=== PATIENT | female | born 1940 | race Caucasian/White ===

== ENCOUNTER → 2018-11-03 | Outpatient (CLI) | payer SELFPAY ==
[~2018-11-03] MED LIST: SYNTHROID125 MC1
[2018-11-03 11:37] LABS: HEMATOCRIT 20.4 % (37.0-47.0)
[2018-11-03 11:38] LABS: HEMOGLOBIN 6.4 gm/dL (12.0-15.0)
[2018-11-03 12:55] VITALS: BP 108/60; BP 109/60; BP 90/47; BP 98/45
[2018-11-03 16:01] VITALS: BP 104/57; BP 109/60; BP 92/48; BP 96/56; BP 97/57
--- NOTE | 2018-11-03 19:20 | NUR ---
1130 - ARRIVED TO INFUSION CLINIC ESCORTED BY AND DAUGHTER, SETTLED INTO RECLINER. CALL LIGHT IN REACH. MALISSA HUGGER PROVIDED. 1230 - MALISSA HUGGER REMOVED PER PT REQUEST. 1330 - TRANSFERRED INTO BED WITH STAND BY ASSIST. BLOOD TRANSFUSION INFUSING WITHOUT DIFFICULTY. FAMILY REMAINS AT BEDSIDE. 1430 - ATE FEW BITES OF LUNCH. TAKING IN PO FLUIDS. STAND BY ASSIST TO AMBULATE SLOW AND STEADY TO BATHROOM. 1605 - 1ST UNIT COMPLETED WITHOUT ANY ADVERSE REACTION. REMAINS AT SIDE. 1700 - AMBULATING TO BATHROOM FREQUENTLY TO VOID D/T LASIX GIVEN. ATE FEW BITES OF DINNER. REPOSITIONING FROM BED TO RECLINER INTERMITTENLY. 1920 - 2ND UNIT OF BLOOD COMPLETED WITHOUT ADVERSE REACTION. DISCUSSED DISCHARGE INSTRUCTIONS WITH FAMILY. DISMISSED IN WITH IMPROVED SKIN COLOR AND GAIT. DISMISSED VIA W/C TO FAMILY VEHICLE.
== END ==
LOC: M.INFUS 08:30 → M.LAB 08:30 → M.INFUS 09:00
PROVIDERS: Internal Medicine
DX: D50.9 Iron deficiency anemia, unspecified (principal); C92.20 Atypical chronic myeloid leukemia, BCR/ABL-negative, not having achieved remission; I50.9 Heart failure, unspecified

== ENCOUNTER 2018-12-06 22:07 | Inpatient (IN) | payer MEDICARE ==
[~2018-12-06] VITALS: Ht 165.1 cm; Wt 59.4 kg
--- NOTE | ~2018-12-06 | PROC ---
[address] [address] PROCEDURE REPORT Name: GOLDY DAVISON Room: [address] IN M.R.#: [id number] Admission: 12/07/18 Attend Phys: Manny Lewis Discharge: Date of : 38 Report #: [id number] THIS REPORT FOR: //name// For GI report, please see the Provation report in Perceptive 7 content. By: 1317Medical Records Staff CHRIS /NHUNG
[2018-12-06 22:14] VITALS: BP 82/33
[2018-12-06] MEDS ORDERED: SYNTHROID125 MC1 PO (22:24)
[2018-12-06 23:31] LABS: MCH 22.8 pg (26.0-34.0); MCHC 29.4 g/dL (28.0-37.0); MCV 77.4 fL (80.0-100.0); MPV 8.3 fl. (7.2-11.1); NUCLEATED RBCS 3 /100WBC; PLATELET COUNT* 205 thou/uL (150-400); RDW-CV 24.3 % (10.5-14.5); WBC 25.1 thou/uL (4.0-11.0)
[2018-12-06 23:34] LABS: HEMATOCRIT 13.1 % (37.0-47.0); HEMOGLOBIN 3.9 gm/dL (12.0-15.0)
[2018-12-06 23:47] LABS: APTT 37.4 Seconds (25.0-31.3); INR 1.8; PROTIME 18.1 Seconds (9.20-11.50)
[2018-12-06 23:53] LABS: ALBUMIN 1.8 g/dL (3.4-5.0); ALKALINE PHOSPHATASE 29 U/L (46-116); ANION GAP 14 mmol/L (7-16); BUN 59 mg/dL (7-18); CALCIUM 6.7 mg/dL (8.5-10.1); CHLORIDE 109 mmol/L (98-107); CO2 18 mmol/L (21-32); CREATININE 1.4 mg/dL (0.6-1.3); GLUCOSE 117 mg/dL (70-99); LIPASE 80 U/L (73-393); SGOT 17 U/L (15-37); SGPT 6 U/L (30-65); SODIUM 141 mmol/L (136-145); TOTAL BILIRUBIN 0.6 mg/dL (<0.1-1.0); TOTAL PROTEIN 3.9 g/dL (6.4-8.2); TROPONIN-I LEVEL <0.06 ng/mL (<0.06)
[2018-12-06 23:54] LABS: POTASSIUM 6.1 mmol/L (3.5-5.1)
[2018-12-07] VITALS (80 sets, daily range): BP systolic 75–134; BP diastolic 29–71
[2018-12-07 00:36] LABS: URINE BILIRUBIN NEGATIVE (Negative); URINE BLOOD TRACE (Negative); URINE CLARITY CLEAR; URINE COLOR YELLOW; URINE GLUCOSE-RANDOM NEGATIVE (Negative); URINE KETONES NEGATIVE (Negative); URINE LEUKOCYTES-REFLEX TRACE (Negative); URINE NITRITE-REFLEX NEGATIVE (Negative); URINE PROTEIN 2+ (Negative); URINE SPECIFIC GRAVITY >= 1.030 (1.005-1.030); URINE UROBILINOGEN 0.2 E.U./dl (0.2-1.0)
[2018-12-07 00:54] LABS: AMORPHOUS URATES Many /LPF (None Seen); BACTERIA-REFLEX 1-9 Few /HPF (None Seen); CASTS None Seen /LPF (None Seen); MUCUS 0-3 Light strn/LPF (None Seen); SQUAMOUS 0-3 Few /LPF (0-3); URINE RBC 3-10 Few /HPF (0-2); URINE WBC-REFLEX 0-5 Rare /HPF (0-5)
[2018-12-07 09:06] LABS: HEMATOCRIT 26.2 % (37.0-47.0); MCH 24.9 pg (26.0-34.0); MPV 8.6 fl. (7.2-11.1); RBC 3.17 mil/uL (4.20-5.00)
[2018-12-07 09:13] LABS: CALCIUM 7.4 mg/dL (8.5-10.1); CREATININE 1.6 mg/dL (0.6-1.3)
[2018-12-07 09:15] LABS: HEMOGLOBIN 7.9 gm/dL (12.0-15.0); MCV 82.8 fL (80.0-100.0)
[2018-12-07 09:19] LABS: APTT 38.1 Seconds (25.0-31.3); INR 1.5; PROTIME 14.9 Seconds (9.20-11.50)
--- NOTE | 2018-12-07 10:03 | EKG ---
[place] [address] ELECTROCARDIOGRAM REPORT Name: GOLDY DAVISON Room: [address] ADM IN M.R.#: [id number] Admission: 12/07/18 Attend Phys: Manny Lewis Discharge: Date of : 38 Report #: [id number] THIS REPORT FOR: //name// [facility] ED Test Date: 2018-12-06 Test Time: 22:53:25 Pat Name: GOLDY DAVISON Department: Room: [facility] Gender: F Air Traffic Control Supervisor: NETTIE : 1940 Requested By: Bharat Maya Order Number: [id number] MD: Doug Solano Measurements Intervals [place] Rate: 72 P: 52 ME: 185 QRS: 36 QRSD: 135 T: QT: 442 QTc: 484 Interpretive Statements sinus rhythm with first degree av block pac's and pvc Nonspecific intraventricular conduction delay Nonspecific T abnrm, anterolateral leads No previous ECG available for comparison Electronically Signed On 12-07-2018 10:02:56 CDT by Doug Solano [email or web address] <ELECTRONICALLY SIGNED> By: Doug Solano MD, FACC 12/07/18 1002 2253 2253 Doug Solano MD, [facility] /EPI
[2018-12-07 10:13] LABS: BE -12.7 mmol/L (-2 to +3); PCO2 31.5 mmHg (35.0-45.0); PO2 67.1 mmHg (75.0-100.0)
[2018-12-07 10:15] LABS: pH 7.248 (7.340-7.450)
[2018-12-07 12:10] LABS: ABSOLUTE BASOPHILS 0.3 thou/uL (0.0-0.2); ABSOLUTE EOSINOPHILS 0.8 thou/uL (0.0-0.7); ABSOLUTE MONOCYTES 0.3 thou/uL (0.0-1.2); ABSOLUTE NEUTROPHILS 21.6 thou/uL (1.6-8.1); BLASTS 1 %; METAMYELOCYTES 3 %; MYELOCYTES 2 %; PROMYELOCYTES 2 %
[2018-12-07 12:12] LABS: ANISOCYTOSIS 2+; HYPOCHROMASIA 2+; POLYCHROMASIA 1+; TEARDROPS 2+
[2018-12-07 12:21] LABS: ABSOLUTE BASOPHILS 0.8 thou/uL (0.0-0.2); ABSOLUTE EOSINOPHILS 0.7 thou/uL (0.0-0.7); ABSOLUTE LYMPHOCYTES 12.4 thou/uL (0.8-5.3); ABSOLUTE MONOCYTES 7.9 thou/uL (0.0-1.2); EOSINOPHILS 0.9 %; HEMATOCRIT 27.5 % (37.0-47.0); HEMOGLOBIN 8.5 gm/dL (12.0-15.0); LYMPHOCYTES 15.8 %; MCH 25.3 pg (26.0-34.0); MCHC 30.7 g/dL (28.0-37.0); MCV 82.3 fL (80.0-100.0); MONOCYTES 10.1 %; MPV 8.6 fl. (7.2-11.1); NUCLEATED RBCS 4 /100WBC; PLATELET COUNT* 232 thou/uL (150-400); POLYS 72.2 %; RBC 3.35 mil/uL (4.20-5.00)
[2018-12-07 12:22] LABS: ABSOLUTE NEUTROPHILS 56.5 thou/uL (1.6-8.1)
[2018-12-07 12:44] LABS: ALBUMIN 2.2 g/dL (3.4-5.0); CREATININE 1.6 mg/dL (0.6-1.3); POTASSIUM 5.9 mmol/L (3.5-5.1); TOTAL BILIRUBIN 1.1 mg/dL (<0.1-1.0); TOTAL PROTEIN 4.9 g/dL (6.4-8.2)
[2018-12-07 13:12] LABS: % SATURATION 95 % (20-39); IRON 223 ug/dL (50-175)
[2018-12-07 13:14] LABS: BE -13.7 mmol/L (-2 to +3); PCO2 37.8 mmHg (35.0-45.0)
[2018-12-07 13:16] LABS: pH 7.178 (7.340-7.450)
[2018-12-07 15:30] LABS: BE -8.6 mmol/L (-2 to +3); PCO2 37.1 mmHg (35.0-45.0); PO2 99.9 mmHg (75.0-100.0)
[2018-12-07 15:32] LABS: pH 7.286 (7.340-7.450)
--- NOTE | 2018-12-07 17:40 | 2DMMODE ---
[place] [address] 2 D/M-MODE ECHOCARDIOGRAM Name: GOLDY DAVISON Room: [address] IN [facility]#: [id number] Admission: 12/07/18 Attend Phys: Mitzi Macias Discharge: Date of : 38 Date of Service: 12/07/18 1740 Report #: [id number] THIS REPORT FOR: //name// APPROVED REPORT Study performed: 12/07/2018 16:04:00 EXAM: Comprehensive 2D, Doppler, and color-flow Echocardiogram Patient Location: In-Patient Room #: [facility] Status: routine BSA: 1.62 HR: 96 bpm BP: 97/40 mmHg Rhythm: NSR Other Information Study Quality: Good Indications Cardiomegaly 2D Dimensions IVSd: 11.83 (7-11mm) LVOT Diam: 21.37 (18-24mm) LVDd: 66.32 mm PWd: 9.27 (7-11mm) Ascending Ao: 36.33 (22-36mm) LVDs: 55.43 (25-40mm) Aortic Root: 31.72 mm Volumes Left Atrial Volume (Systole) LA ESV Index: 83.50 mL/m2 Aortic Valve AoV Peak Talon.: 1.72 m/s AO Peak Gr.: 11.82 mmHg LVOT Max P.97 mmHg AO Mean Gr.: 6.45 mmHg LVOT Mean P.25 mmHg LVOT Max V: 1.32 m/s AO V2 VTI: 21.04 cm LVOT Mean V: 0.82 m/s TORO (VTI): 2.81 cm2 LVOT V1 VTI: 16.48 cm TDI Medial E' Talon.: 0.08 m/s Lateral E' Talon.: 0.10 m/[place] [address] 2 D/M-MODE ECHOCARDIOGRAM Name: GOLDY DAVISON Room: [address] IN ..#: [id number] Admission: 12/07/18 Attend Phys: Mitzi Macias Discharge: Date of : 38 Date of Service: 12/07/18 1740 Report #: [id number] Pulmonary Valve PV Peak Talon.: 1.22 m/s PV Peak Gr.: 5.98 mmHg Tricuspid Valve RAP Estimate: 10.00 mmHg TR Peak Gr.: 55.00 mmHg RVSP: 65.00 mmHg PA Pressure: 65.00 mmHg Left Ventricle Left ventricle is moderate to severely dilated. There is global hypokinesis of the left ventricle. There is normal left ventricular wall thickness. Left ventricular systolic function is moderately decreased. LVEF is 30-35%. The left ventricular diastolic function is normal. Right Ventricle Right ventricle is dilated. The right ventricular systolic function is normal. Atria Left atrium is severely dilated. Right atrium is dilated. Aortic Valve The aortic valve is normal in structure. No aortic regurgitation is present. There is no aortic valvular stenosis. Mitral Valve The mitral valve is normal in structure. Moderate mitral regurgitation. No evidence of mitral valve stenosis. Tricuspid Valve The tricuspid valve is normal in structure. Severe tricuspid regurgitation. estimated pa pressure 60 mm Hg Pulmonic Valve The pulmonary valve is normal in structure. Mild pulmonic regurgitation. Great Vessels The aortic root is normal in size. The IVC is dilated. Pericardium Mild pericardial effusion. [place] [address] 2 D/M-MODE ECHOCARDIOGRAM Name: JONNIE DAVISONMAGALI Long Room: [address] IN [facility].#: [id number] Admission: 12/07/18 Attend Phys: Mitzi Macias Discharge: Date of : 38 Date of Service: 12/07/181739 Report #: [id number] <Conclusion> LVEF is 30-35%. Right ventricle is dilated. Moderate mitral regurgitation. Severe tricuspid regurgitation. estimated pa pressure 60 mm Hg Mild pericardial effusion. <ELECTRONICALLY SIGNED> By: Doug Solano MD, [facility] 12/07/181739 39 39 Doug Solano MD, FACC /INF
--- NOTE | 2018-12-07 17:53 | EKG ---
[place] [address] ELECTROCARDIOGRAM REPORT Name: GOLDY DAVISON Room: [address] ADM IN M.R.#: [id number] Admission: 12/07/18 Attend Phys: Manny Lewis Discharge: Date of : 38 Report #: [id number] THIS REPORT FOR: //name// [facility] ED Test Date: 2018-12-06 Test Time: 22:54:06 Pat Name: GOLDY DAVISON Department: Room: [address] Gender: F Driver Examiner: NETTIE : 1940 Requested By: Bharat aMya Order Number: [id number] MD: Doug Solano Measurements Intervals [place] Rate: 83 P: 51 RI: 141 QRS: 35 QRSD: 151 T: 149 QT: 446 QTc: 525 Interpretive Statements Sinus rhythm Atrial premature complex Nonspecific intraventricular conduction delay Borderline T abnormalities, lateral leads Compared to ECG 12/06/2018 22:53:25 Atrial premature complex(es) now present T-wave abnormality now present First degree AV block no longer present Ventricular premature complex(es) no longer present Electronically Signed On 12-07-2018 17:53:45 CDT by Doug Solano [email or web address] <ELECTRONICALLY SIGNED> By: Duog Solano MD, [facility] 12/07/18 1753 2254 2254 Doug Solano MD, [facility] /EPI
--- NOTE | 2018-12-07 18:05 | EKG ---
[place] [address] ELECTROCARDIOGRAM REPORT Name: GOLDY DAVISON Room: [address] ADM IN M.R.#: [id number] Admission: 12/07/18 Attend Phys: Manny Lewis Discharge: Date of : 39 Report #: [id number] THIS REPORT FOR: //name// [facility] Test Date: 2018-12-07 Test Time: 14:31:23 Pat Name: GOLDY DAVISON Department: Room: [address] Gender: F Supervisor Cd Area: : 1940 Requested By: Leticia Tobar Order Number: [id number] Reading MD: Doug Solano Measurements Intervals [place] Rate: 88 P: [place]: QRS: 52 QRSD: 116 T: 135 QT: 379 QTc: 459 Interpretive Statements Accelerated junctional rhythm Nonspecific intraventricular conduction delay Low voltage, extremity leads Borderline repolarization abnormality Compared to ECG 12/06/2018 22:53:25 Accelerated junctional rhythm now present Low QRS voltage now present Electronically Signed On 12-07-2018 18:05:05 CDT by Doug Solano [email or web address] <ELECTRONICALLY SIGNED> By: Doug Solano MD, FAC 12/07/18 1805 1431 1431 Doug Solano MD, [facility] /EPI
[2018-12-08] VITALS (61 sets, daily range): BP systolic 67–125; BP diastolic 33–69
[2018-12-08 04:57] LABS: BASOPHILS 1.1 %; HEMATOCRIT 24.3 % (37.0-47.0); HEMOGLOBIN 7.7 gm/dL (12.0-15.0); LYMPHOCYTES 9.8 %; MCHC 31.5 g/dL (28.0-37.0); MCV 79.3 fL (80.0-100.0); MONOCYTES 10.6 %; MPV 9.3 fl. (7.2-11.1); NUCLEATED RBCS 2 /100WBC; POLYS 77.5 %; RBC 3.07 mil/uL (4.20-5.00); RDW-CV 20.8 % (10.5-14.5)
[2018-12-08 05:31] LABS: ALBUMIN 2.2 g/dL (3.4-5.0); CALCIUM 6.9 mg/dL (8.5-10.1); CREATININE 1.4 mg/dL (0.6-1.3); MAGNESIUM 1.7 mg/dL (1.8-2.4); TOTAL PROTEIN 5.1 g/dL (6.4-8.2)
[2018-12-08 05:36] LABS: POTASSIUM 4.5 mmol/L (3.5-5.1)
[2018-12-08 05:49] LABS: ABSOLUTE BASOPHILS 0.4 thou/uL (0.0-0.2); ABSOLUTE EOSINOPHILS 0.4 thou/uL (0.0-0.7); ABSOLUTE LYMPHOCYTES 3.6 thou/uL (0.8-5.3); ABSOLUTE MONOCYTES 3.9 thou/uL (0.0-1.2); ABSOLUTE NEUTROPHILS 28.3 thou/uL (1.6-8.1); PLATELET COUNT* 134 thou/uL (150-400); WBC 36.5 thou/uL (4.0-11.0)
[2018-12-08 06:05] LABS: BE -8.4 mmol/L (-2 to +3); PCO2 35.2 mmHg (35.0-45.0); pH 7.306 (7.340-7.450)
[2018-12-08 07:44] LABS: POTASSIUM 6.1 mmol/L (3.5-5.1)
[2018-12-08 08:37] LABS: WBC 78.2 thou/uL (4.0-11.0)
[2018-12-08 12:18] LABS: HEMATOCRIT 25.4 % (37.0-47.0); HEMOGLOBIN 8.3 gm/dL (12.0-15.0); MCH 25.5 pg (26.0-34.0); MCHC 32.7 g/dL (28.0-37.0); MCV 77.8 fL (80.0-100.0); MPV 8.2 fl. (7.2-11.1); RBC 3.27 mil/uL (4.20-5.00); RDW-CV 21.2 % (10.5-14.5)
[2018-12-08 12:24] LABS: WBC 45.6 thou/uL (4.0-11.0)
[2018-12-08 12:28] LABS: INR 1.4; PROTIME 14.4 Seconds (9.20-11.50)
--- NOTE | 2018-12-08 13:44 | CON ---
[address] [address] CONSULTATION Name: GOLDY DAVISON Room: [address] IN .R.#: [id number] Admission: 12/07/18 Attend Phys: Manny Lewis Discharge: Date of : 39 Report #: [id number] THIS REPORT FOR: //name// CC: Ana Macias DATE OF SERVICE: 12/07/2018 REFERRING PHYSICIAN: Stacie Tobar M.D. CHIEF COMPLAINT: Pulmonary infiltrate, respiratory failure, GI bleed. HISTORY OF PRESENT ILLNESS: The patient is a 78-year-old female who was admitted to the hospital on 12/07/2018 and this document is produced on 12/07/2018. According to the family, the patient who is quite lethargic and then a slight degree of respiratory distress, she had been having some bleeding per rectum. The patient apparently started having GI bleeding yesterday, was brought to the Emergency Room. She has a history of chronic lymphocytic leukemia, although she has not been on treatment. The patient is experiencing some distress. She is on a Ventimask. She is not having any abdominal pain or chest pain. According to the patient, she has not had any nausea or vomiting. She is a lifelong nonsmoker with no history of respiratory disease. According to the daughter, the patient was in [facility] back in 03/2018, was told that there was a mass in her lung as well as having an enlarged spleen. The mass is in her lung was never investigated with a biopsy. According to the daughter, the doctors at that institution wanted to remove the patient's spleen, but felt that she was not in a physical condition from a cardiac standpoint to undergo such a procedure. PAST MEDICAL HISTORY: Significant for anemia, colitis, GI bleed, CLL, pneumonia. She has a history of hypothyroidism, hepatosplenomegaly as well. ALLERGIES: CODEINE, PENICILLIN, AND SULFA DRUGS. SOCIAL HISTORY: She is . She is a nonsmoker. REVIEW OF SYSTEMS: CONSTITUTIONAL: She denies fever or chills. HEENT: Head: She denies headache, blurred vision. Oral cavity: She denies trouble swallowing. RESPIRATORY: She is denying respiratory distress. She denies cough, phlegm production. GASTROINTESTINAL: She complains of rectal bleeding, [place] [address] CONSULTATION Name: GOLDY DAVISON Ethan Room: [address]#: [id number] Admission: 12/07/18 Attend Phys: Manny Lewis Discharge: Date of : 39 Report #: [id number] She is aware of the fact she has hepatosplenomegaly. GENITOURINARY: Negative for dysuria or hematuria. MUSCULOSKELETAL: She denies arthritis, swelling in the joints. SKIN: She is denying lesions or rash. NEUROLOGIC: She denies headache, blurred vision, numbness, tingling. MEDICATIONS: Protonix; levothyroxine; Levaquin; potassium, magnesium, phosphorus replacement; metronidazole. PHYSICAL EXAMINATION: VITAL SIGNS: Blood pressure 97/40, respiratory rate 32, pulse rate 120, temperature 97.8 degrees. Weight 125 pounds. GENERAL APPEARANCE: The patient is awake, alert. She is responsive and provides a very sketchy history at this time, although she attempts to do so. She denies being in distress at this time. EYES: Pupils are round, equal, reactive. No scleral icterus. EARS: Auricular structures are normal. Auditory canals are free of drainage. ORAL CAVITY: Moist, no lesions. NECK: There is no adenopathy or JVD. CHEST: Reveals diminished breath sounds, crackles on the right. CARDIOVASCULAR: Resting sinus tachycardia, distant heart tones. Cannot appreciate any S3, S4. S1 and S2 appear normal. ABDOMEN: Protuberant. There is evidence of hepatosplenomegaly on palpation. The abdomen otherwise is soft. There is no tenderness or guarding. EXTREMITIES: Positive for edema bilaterally, trace to 1+. SKIN: Warm, intact, dry, slightly pale. NEUROLOGIC: She is able to move all 4. She is extremely weak. No pathologic reflexes. MUSCULOSKELETAL: Without joint swelling or limitation. No redness. LABORATORY DATA: Arterial blood gas was obtained today about 10:00 on the 50% Ventimask with a pH of 7.25, pCO2 of 32, pO2 of 67 and a bicarbonate of 13. Urinalysis: 3-10 rbc's per high-powered field, there are 0-5 wbc's per high-powered field. Hemoglobin and hematocrit of 3.9 and 13 with a white count of 25,000. Repeat CBC after she received blood products with a hemoglobin of 7.9, hematocrit of 26, white count of 68,000. Sodium 140, potassium 6.1, chloride 109, CO2 of 17, BUN of 61, creatinine 1.6, EGFR of 36. MEDICAL IMAGING STUDIES: Her initial chest x-ray was interpreted as showing cardiomegaly with an infiltrate on the right side. CT of the brain: No acute intracranial process. CT of the abdomen: Hepatosplenomegaly, marked enlargement of the spleen, moderate amount of abdominal and pelvic ascites, evidence of colitis on the CT. There is a cholelithiasis, marked cardiomegaly with a pericardial effusion, right lower lobe infiltrate. Hepatic cysts are present. CT of the chest performed revealed cardiomegaly, pulmonary infiltrate. On the CT of the chest, there is no [place] [address] CONSULTATION Name: GOLDY DAVISON Room: [address] IN .R.#: [id number] Admission: 12/07/18 Attend Phys: Manny Lewis Discharge: Date of : 39 Report #: [id number] ASSESSMENT: 1. Acute respiratory insufficiency/failure requiring intubation. 2. Gastrointestinal bleed. 3. Chronic lymphocytic leukemia. 4. History of cardiomyopathy. 5. Hepatosplenomegaly. 6. Pneumonia. 7. Anemia. RECOMMENDATION: The patient is getting blood products. GI has been consulted. Because of her tenuous state, she is going to be intubated. GI will conduct appropriate procedures for evaluation regarding her GI bleed. Blood products have been ordered and she will continue this for the time being. In the interim, the ventilator will be adjusted accordingly after the initial set up. Arterial blood gases, followup chest x-ray for ET tube placement. In addition, aerosol treatments, continue with antibiotic therapy. Sputum for culture and sensitivity will also be obtained. I had a discussion with the daughter. The patient is interested in pursuing aggressive therapy or treatment, but the daughter is aware of the fact that the prognosis is extremely poor and the patient obviously may not survive this event. We will obtain followup x-rays and blood gases in the a.m. 35 minutes spent in critical care time. <ELECTRONICALLY SIGNED> By: Maycol Oshea MD 12/08/18 1344 1141 1319Alrenaldo Sheriff MD /nt
--- NOTE | 2018-12-08 17:06 | EKG ---
[place] [address] ELECTROCARDIOGRAM REPORT Name: GOLDY DAVISON Room: [address] ADM IN M.R.#: [id number] Admission: 12/07/18 Attend Phys: Manny Lewis Discharge: Date of : 38 Report #: [id number] THIS REPORT FOR: //name// [facility] Test Date: 2018-12-08 Test Time: 03:51:04 Pat Name: GOLDY DAVISON Department: Room: [address] Gender: F Merchandise Execution Leader: SHANE : 1940 Requested By: Mitzi Macias Order Number: [id number] Ari MD: Titus Bates Measurements Intervals [place] Rate: 168 P: 0 MN: QRS: 38 QRSD: 122 T: 164 QT: 324 QTc: 542 Interpretive Statements Wide-QRS tachycardia Nonspecific intraventricular conduction delay Compared to ECG 12/07/2018 14:31:23 Accelerated junctional rhythm no longer present Electronically Signed On 12-08-2018 17:06:27 CDT by Titus Bates [email or web address] <ELECTRONICALLY SIGNED> By: Titus Bates MD, [facility] 12/08/18 1706 0351 0351 Titus Bates MD, [facility] /EPI
--- NOTE | 2018-12-08 17:07 | EKG ---
[place] [address] ELECTROCARDIOGRAM REPORT Name: GOLDY DAVISON Room: [address] ADM IN M.R.#: [id number] Admission: 12/07/18 Attend Phys: Manny Lewis Discharge: Date of : 38 Report #: [id number] THIS REPORT FOR: //name// [facility] Test Date: 2018-12-08 Test Time: 03:52:02 Pat Name: GOLDY DAVISON Department: Room: [address] Gender: F Carpentry Supervisor: Jordan Breen : 1940 Requested By: Mitzi Macias Order Number: [id number] MD: Titus Bates Measurements Intervals [place] Rate: 122 P: 114 NM: 88 QRS: 35 QRSD: 120 T: 183 QT: 382 QTc: 545 Interpretive Statements Tachycardia converting to accelerated junctional rhythm Nonspecific intraventricular conduction delay Nonspecific T abnormalities, lateral leads Compared to ECG 12/07/2018 14:31:23 T-wave abnormality now present Electronically Signed On 12-08-2018 17:07:16 CDT by Titus Bates [email or web address] <ELECTRONICALLY SIGNED> By: Titus Bates MD, FAC 12/08/18 1707 0352 0352 Titus Bates MD, FAC /EPI
--- NOTE | 2018-12-08 17:07 | EKG ---
[place] [address] ELECTROCARDIOGRAM REPORT Name: GOLDY DAVISON Room: [address] ADM IN M.R.#: [id number] Admission: 12/07/18 Attend Phys: Manny Lewis Discharge: Date of : 38 Report #: [id number] THIS REPORT FOR: //name// [facility] Test Date: 2018-12-08 Test Time: 03:56:28 Pat Name: GOLDY DAVISON Department: Room: [address] Gender: F Blue Split Trimmer: Jordan Breen : 1940 Requested By: Mitzi Macias Order Number: [id number] MD: Titus Bates Measurements Intervals [place] Rate: 151 P: -7 NM: 72 QRS: 66 QRSD: 125 T: 208 QT: 315 QTc: 500 Interpretive Statements Wide-QRS tachycardia Nonspecific intraventricular conduction delay Compared to ECG 12/07/2018 14:31:23 Accelerated junctional rhythm no longer present Electronically Signed On 12-08-2018 17:07:21 CDT by Titus Bates [email or web address] <ELECTRONICALLY SIGNED> By: Titus Bates MD, FACC 12/08/18 1707 0356 0356 Titus Bates MD, FAC /EPI
[2018-12-08 19:54] LABS: HEMATOCRIT 22.9 % (37.0-47.0); HEMOGLOBIN 7.6 gm/dL (12.0-15.0)
[2018-12-09] VITALS (68 sets, daily range): BP systolic 92–127; BP diastolic 40–73
[2018-12-09 05:24] LABS: BE -4.1 mmol/L (-2 to +3); PCO2 32.8 mmHg (35.0-45.0); PO2 118.2 mmHg (75.0-100.0); pH 7.405 (7.340-7.450)
[2018-12-09 05:25] LABS: HEMATOCRIT 23.4 % (37.0-47.0); HEMOGLOBIN 7.4 gm/dL (12.0-15.0); MCH 24.9 pg (26.0-34.0); MCHC 31.8 g/dL (28.0-37.0); MCV 78.4 fL (80.0-100.0); MPV 8.4 fl. (7.2-11.1); NUCLEATED RBCS 2 /100WBC; PLATELET COUNT* 121 thou/uL (150-400); RBC 2.99 mil/uL (4.20-5.00); RDW-CV 21.5 % (10.5-14.5)
[2018-12-09 06:22] LABS: ALBUMIN 2.5 g/dL (3.4-5.0); CALCIUM 7.3 mg/dL (8.5-10.1); CREATININE 1.4 mg/dL (0.6-1.3); POTASSIUM 3.5 mmol/L (3.5-5.1); TOTAL BILIRUBIN 1.1 mg/dL (<0.1-1.0); TOTAL PROTEIN 5.4 g/dL (6.4-8.2)
[2018-12-09 09:44] LABS: ABSOLUTE MONOCYTES 2.8 thou/uL (0.0-1.2); ABSOLUTE NEUTROPHILS 37.1 thou/uL (1.6-8.1)
[2018-12-09 09:45] LABS: ABSOLUTE BASOPHILS 0.9 thou/uL (0.0-0.2); ABSOLUTE EOSINOPHILS 0.5 thou/uL (0.0-0.7); ABSOLUTE LYMPHOCYTES 5.6 thou/uL (0.8-5.3); ATYPICAL LYMPHS 3 %
--- NOTE | 2018-12-09 13:19 | CON ---
[address] [address] CONSULTATION Name: GOLDY DAVISON Room: [address] IN .R.#: [id number] Admission: 12/07/18 Attend Phys: Manny Lewis Discharge: Date of : 38 Report #: [id number] THIS REPORT FOR: //name// CC: Ana Macias DATE OF SERVICE: 12/08/2018 ATTENDING PHYSICIAN: Dr. Macias. REASON FOR EVALUATION: Septic shock, complicated by multiorgan dysfunction in the setting of leukemia as well as cardiomyopathy. HISTORY OF PRESENT ILLNESS: Chart reviewed, patient examined. This is a 78-year-old apparently with diagnosis of leukemia, although it is otherwise undefined per the records who presents to the Emergency Room with complaints of significant lower gastrointestinal bleeding, was found to have a hemoglobin of 3.9. The patient was found out to have evidence of hemodynamic instability, did require emergent intubation, now is on mechanical ventilatory support. She is on pressor support as well due to hypotension. Additional evaluation noted evidence of a right-sided infiltrate on chest x-ray, CT confirmation. She has marked hepatosplenomegaly. She has evidence of severe cardiomyopathy and severe tricuspid regurgitation due to pulmonary arterial hypertension. She concerns about an infectious component. Cultures have been collected on the blood and empirically started on antimicrobial therapy, cefepime, metronidazole and vancomycin. ALLERGIES: LISTED TO PENICILLIN, SULFA, CODEINE. CURRENT MEDICATIONS: Include amiodarone, levofloxacin, cefepime, midazolam, octreotide, pantoprazole, levothyroxine. PAST MEDICAL HISTORY: History of leukemia of unclear type at this point, cardiomyopathy, prolapsed uterus and bladder, hypothyroidism. SOCIAL HISTORY: Nonsmoker, no ethanol, no illicit drug use. FAMILY HISTORY: Noncontributory. REVIEW OF SYSTEMS: Not obtainable. PHYSICAL EXAMINATION: GENERAL: She appears chronically ill, appears pale. She is supine maintained, intubated on mechanical ventilatory support. HEENT: Normocephalic. NECK: [place] [address] CONSULTATION Name: GOLDY DAVISON Room: [address]#: [id number] Admission: 12/07/18 Attend Phys: Manny Lewis Discharge: Date of : 39 Report #: [id number] VITAL SIGNS: Temperature 98.8, pulse 108, respirations 18, blood pressure 108/61. SKIN: Warm. She is cool to touch at the distal extremities, otherwise. LUNGS: Scattered coarse breath sounds. HEART: Tachycardic, regular. Does have what appears to be systolic murmur. ABDOMEN: Soft, although she is distended. There are not any overt peritoneal signs. GENITOURINARY AND RECTAL: Deferred. LABORATORY DATA: Blood cultures sterile thus far. Most recent CBC: White count of 78.2, hemoglobin 8.5 that is up from 3.9 post-transfusion, hematocrit 27.5, platelet count of 232. Differential shows primarily neutrophils, previously had a left shift, 8% bands, metamyelocytes 3%, myelocytes 2%, promyelocytes 2%, blasts 1%, suggestive of a myeloproliferative disorder. Chest x-ray as noted above, bilateral lower lobe atelectasis, infiltrate, greater on the right. Electrolytes: Sodium 140, potassium 6.1, chloride 109, bicarbonate is 17, anion gap of 14, BUN and creatinine 61 and 1.6. ABGs earlier today, pH 7.306, pCO2 of 35.2, pO2 of 119, FiO2 of 50%. Albumin 2.2, total protein 5.1. LFTs unremarkable. Estimated GFR of 36. Prealbumin 9.7. Echo showed EF of 30-35%, moderate mitral regurgitation, severe tricuspid regurgitation, estimated PA pressure of 60 mmHg, mild pericardial effusion. Lactic acid of 4.1. ASSESSMENT: Septic shock in the setting of leukemia. It is difficult to ascertain whether this is prodromal to some sort of a crisis. We will continue broad-spectrum antimicrobial therapy at this point. The etiology is unclear. She may well have pneumonitis, although this could certainly be more volume expansion and excess fluid. She is certainly critically ill and perhaps would expect her to have deterioration before she improves. Await recommendations from other consultants. We will await results of the pending studies. Overall, prognosis appears quite guarded. <ELECTRONICALLY SIGNED> By: Saul Gomez MD 12/09/18 1319 1001 2334Jopantera Gomez MD /nt
--- NOTE | 2018-12-09 15:34 | EKG ---
[place] [address] ELECTROCARDIOGRAM REPORT Name: GOLDY DAVISON Room: [address] ADM IN M.R.#: [id number] Admission: 12/07/18 Attend Phys: Manny Lewis Discharge: Date of : 38 Report #: [id number] THIS REPORT FOR: //name// [facility] Test Date: 2018-12-09 Test Time: 08:13:50 Pat Name: GOLDY DAVISON Department: Room: [facility] Gender: F Eyelet Punch Operator: : 1940 Requested By: Corrine Boswell Order Number: [id number] Reading MD: Doug Solano Measurements Intervals [place] Rate: 71 P: 57 HI: 406 QRS: 93 QRSD: 122 T: -86 QT: 507 QTc: 552 Interpretive Statements Sinus rhythm Prolonged HI interval poor r wave progression Abnormal T, consider ischemia, lateral leads Prolonged QT interval Compared to ECG 12/08/2018 03:56:28 Left ventricular hypertrophy now present Prolonged QT interval now present supraventricular tachycardia no longer seen Electronically Signed On 12-09-2018 15:34:27 CDT by Doug Solano [email or web address] <ELECTRONICALLY SIGNED> By: Doug Solano MD, FACC 12/09/18 1534 2 2 Doug Solano MD, FAC /EPI
[2018-12-09 22:06] LABS: HEMOGLOBIN 7.5 g/dL (11.1-15.9)
[2018-12-10] VITALS (33 sets, daily range): BP systolic 79–132; BP diastolic 37–75
[2018-12-10 06:25] LABS: BE -3.4 mmol/L (-2 to +3); PCO2 34.8 mmHg (35.0-45.0); PO2 101.7 mmHg (75.0-100.0); pH 7.398 (7.340-7.450)
[2018-12-10 07:10] LABS: HEMATOCRIT 22.1 % (37.0-47.0); HEMOGLOBIN 7.2 gm/dL (12.0-15.0); MCH 25.7 pg (26.0-34.0); MCHC 32.5 g/dL (28.0-37.0); MPV 8.2 fl. (7.2-11.1); NUCLEATED RBCS 1 /100WBC; PLATELET COUNT* 75 thou/uL (150-400); RDW-CV 21.1 % (10.5-14.5)
[2018-12-10 07:11] LABS: WBC 27.1 thou/uL (4.0-11.0)
[2018-12-10 07:19] LABS: ALBUMIN 2.6 g/dL (3.4-5.0); CALCIUM 7.5 mg/dL (8.5-10.1); CREATININE 1.2 mg/dL (0.6-1.3); MAGNESIUM 1.9 mg/dL (1.8-2.4); POTASSIUM 3.4 mmol/L (3.5-5.1); TOTAL BILIRUBIN 1.1 mg/dL (<0.1-1.0); TOTAL PROTEIN 5.3 g/dL (6.4-8.2)
[2018-12-10 07:23] LABS: INR 1.3; PROTIME 12.8 Seconds (9.20-11.50)
[2018-12-10 07:50] LABS: ABSOLUTE BASOPHILS 0.5 thou/uL (0.0-0.2); ABSOLUTE EOSINOPHILS 0.5 thou/uL (0.0-0.7); ABSOLUTE LYMPHOCYTES 2.7 thou/uL (0.8-5.3); ABSOLUTE MONOCYTES 2.2 thou/uL (0.0-1.2); ABSOLUTE NEUTROPHILS 21.1 thou/uL (1.6-8.1); ATYPICAL LYMPHS 1 %; ATYPICAL MONONUCLEARS 1 %; METAMYELOCYTES 3 %; MYELOCYTES 3 %
[2018-12-10 07:51] LABS: BURR CELLS 1+; OVALOCYTES 2+; PLATELET ESTIMATE DECREASED; SCHISTOCYTES 2+; TEARDROPS 1+; TOXIC GRANULATION 2+
[2018-12-10 07:52] LABS: ANISOCYTOSIS 2+; HYPOCHROMASIA 3+; MICROCYTES 2+; POIKILOCYTOSIS 3+; POLYCHROMASIA 1+
--- NOTE | 2018-12-10 13:13 | EKG ---
[place] [address] ELECTROCARDIOGRAM REPORT Name: GOLDY DAVISON Room: [address] ADM IN M.R.#: [id number] Admission: 12/07/18 Attend Phys: Manny Lewis Discharge: Date of : 38 Report #: [id number] THIS REPORT FOR: //name// [facility] Test Date: 2018-12-10 Test Time: 08:00:21 Pat Name: GOLDY DAVISON Department: Room: [facility] Gender: F Mathematics Academic Chair: : 1940 Requested By: Corrine Boswell Order Number: [id number] Ari MD: Doug Solano Measurements Intervals [place] Rate: 72 P: 0 CT: 421 QRS: 109 QRSD: 127 T: QT: 475 QTc: 520 Interpretive Statements Sinus rhythm Consider left ventricular hypertrophy Borderline abnrm T, anterolateral leads Prolonged QT interval Compared to ECG 12/09/2018 08:13:50 no change Electronically Signed On 12-10-2018 13:13:27 CDT by Doug Solano [email or web address] <ELECTRONICALLY SIGNED> By: Doug Solano MD, [facility] 12/10/18 1313 08 08 Doug Solano MD, [facility] /EPI
[2018-12-10 15:46] LABS: MAGNESIUM 2.5 mg/dL (1.8-2.4); POTASSIUM 4.1 mmol/L (3.5-5.1)
[2018-12-10 17:53] LABS: HEMATOCRIT 27.9 % (37.0-47.0)
[2018-12-10 17:54] LABS: HEMOGLOBIN 9.3 gm/dL (12.0-15.0)
[2018-12-11] VITALS (39 sets, daily range): BP systolic 78–135; BP diastolic 38–77
[2018-12-11 05:06] LABS: HEMOGLOBIN 8.2 gm/dL (12.0-15.0); RBC 3.08 mil/uL (4.20-5.00)
[2018-12-11 05:09] LABS: ABSOLUTE BASOPHILS 0.5 thou/uL (0.0-0.2); ABSOLUTE EOSINOPHILS 0.3 thou/uL (0.0-0.7); ABSOLUTE LYMPHOCYTES 3.3 thou/uL (0.8-5.3); ABSOLUTE MONOCYTES 1.5 thou/uL (0.0-1.2); ABSOLUTE NEUTROPHILS 33.9 thou/uL (1.6-8.1); BASOPHILS 1.2 %; EOSINOPHILS 0.7 %; HEMATOCRIT 25.2 % (37.0-47.0); LYMPHOCYTES 8.3 %; MCH 26.7 pg (26.0-34.0); MCHC 32.6 g/dL (28.0-37.0); MONOCYTES 3.8 %; MPV 8.4 fl. (7.2-11.1); NUCLEATED RBCS 1 /100WBC; PLATELET COUNT* 65 thou/uL (150-400); WBC 39.5 thou/uL (4.0-11.0)
[2018-12-11 05:26] LABS: ALBUMIN 2.8 g/dL (3.4-5.0); CALCIUM 8.2 mg/dL (8.5-10.1); MAGNESIUM 2.2 mg/dL (1.8-2.4); POTASSIUM 3.7 mmol/L (3.5-5.1); TOTAL BILIRUBIN 0.8 mg/dL (<0.1-1.0); TOTAL PROTEIN 5.6 g/dL (6.4-8.2)
[2018-12-11 06:24] LABS: BE -1.6 mmol/L (-2 to +3); PCO2 41.1 mmHg (35.0-45.0); PO2 100.1 mmHg (75.0-100.0); pH 7.375 (7.340-7.450)
[2018-12-11 18:09] LABS: IgG 824 mg/dL (700-1600); IgM 48 mg/dL (26-217)
[2018-12-12] VITALS (32 sets, daily range): BP systolic 82–1242; BP diastolic 34–81
[2018-12-12 05:03] LABS: BASOPHILS 0.6 %; HEMOGLOBIN 7.6 gm/dL (12.0-15.0); RBC 2.86 mil/uL (4.20-5.00)
[2018-12-12 05:10] LABS: HEPATITIS B SURFACE AG Negative (Negative)
[2018-12-12 05:11] LABS: ABSOLUTE BASOPHILS 0.2 thou/uL (0.0-0.2); ABSOLUTE EOSINOPHILS 0.1 thou/uL (0.0-0.7); ABSOLUTE LYMPHOCYTES 1.5 thou/uL (0.8-5.3); ABSOLUTE MONOCYTES 1.1 thou/uL (0.0-1.2); ABSOLUTE NEUTROPHILS 21.7 thou/uL (1.6-8.1); EOSINOPHILS 0.5 %; HEMATOCRIT 23.4 % (37.0-47.0); LYMPHOCYTES 6.1 %; MCH 26.7 pg (26.0-34.0); MCHC 32.5 g/dL (28.0-37.0); MONOCYTES 4.6 %; NUCLEATED RBCS 0 /100WBC; PLATELET COUNT* 55 thou/uL (150-400); POLYS 88.2 %; RDW-CV 21.9 % (10.5-14.5); WBC 24.6 thou/uL (4.0-11.0)
[2018-12-12 05:15] LABS: CALCIUM 8.4 mg/dL (8.5-10.1); TOTAL BILIRUBIN 0.8 mg/dL (<0.1-1.0); TOTAL PROTEIN 5.6 g/dL (6.4-8.2)
[2018-12-13] VITALS (32 sets, daily range): BP systolic 83–129; BP diastolic 34–66
[2018-12-13 04:44] LABS: HEMOGLOBIN 7.7 gm/dL (12.0-15.0); RBC 2.87 mil/uL (4.20-5.00)
[2018-12-13 04:47] LABS: HEMATOCRIT 23.8 % (37.0-47.0); MCH 26.7 pg (26.0-34.0); MCHC 32.2 g/dL (28.0-37.0); MPV 8.3 fl. (7.2-11.1); NUCLEATED RBCS 0 /100WBC; RDW-CV 21.5 % (10.5-14.5); WBC 21.4 thou/uL (4.0-11.0)
[2018-12-13 05:04] LABS: PLATELET COUNT* 34 thou/uL (150-400)
[2018-12-13 07:46] LABS: ABSOLUTE BASOPHILS 0.2 thou/uL (0.0-0.2); ABSOLUTE EOSINOPHILS 0.4 thou/uL (0.0-0.7); ABSOLUTE LYMPHOCYTES 1.3 thou/uL (0.8-5.3); ABSOLUTE MONOCYTES 1.7 thou/uL (0.0-1.2); ABSOLUTE NEUTROPHILS 17.8 thou/uL (1.6-8.1); ANISOCYTOSIS 3+; METAMYELOCYTES 2 %; OVALOCYTES 2+; PLATELET ESTIMATE DECREASED; POIKILOCYTOSIS 2+; SCHISTOCYTES 1+; TEARDROPS 1+
[2018-12-13 07:47] LABS: HYPOCHROMASIA 3+
--- NOTE | 2018-12-13 13:47 | CON ---
[address] [address] CONSULTATION Name: GOLDY DAVISON Room: [address] IN M.R.#: [id number] Admission: 12/07/18 Attend Phys: Manny Lewis Discharge: Date of : 38 Report #: [id number] THIS REPORT FOR: //name// CC: Ana Macias DICTATED BY: Tammie David [facility] DATE OF SERVICE: 12/07/2018 PRIMARY CARE PHYSICIAN: Ana Hills M.D. Please note that at the time of this dictation, the patient was seen and physically examined by myself. REASON FOR CONSULTATION: GI bleed. HISTORY OF PRESENT ILLNESS: This is a 78-year-old female who experienced awakening at 4:00 a.m. yesterday morning having an episode of bright red blood in a large amount and then had a second episode of bright red blood, again of large quantity prompting her to come in given that she was feeling very weak at that time. The patient has never had any upper or lower scopes done in the past and no prior history of any GI bleed. On Friday prior to this occurring, she had a normal bowel movement, soft and formed. Her appetite had been good. She complained of no abdominal discomfort at this time. In talking with the family, she has had somewhat "a belly for several years," which they have been aware of, but has gotten a little bit more noticeable since she has been hospitalized. The patient has a history of leukemia and has not had any chemo or radiation. She was told that she was too weak secondary to her heart and is currently looking at holistic medicine. ALLERGIES: PENICILLIN, SULFA and CODEINE. MEDICATIONS FROM HOME: Levothyroxine. PAST MEDICAL HISTORY: Diagnosed leukemia, uncertain of what kind 2 years ago, does not see an oncologist for this; congestive heart failure several years ago and hypothyroidism. 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 PAST SURGICAL HISTORY: Appendectomy and tonsillectomy. FAMILY HISTORY: Negative for [place] [address] CONSULTATION Name: LANEYGOLDY Room: [address]#: [id number] Admission: 12/07/18 Attend Phys: Manny Lewis Discharge: Date of : 38 Report #: [id number] SOCIAL HISTORY: Denies any alcohol, tobacco or illegal drug use. Twelve-point review of systems is essentially negative except what is mentioned in the HPI. PHYSICAL EXAMINATION: VITAL SIGNS: Temperature 36.6, pulse 120, respirations are 32 and blood pressure was 97/40. HEART: Regular and tachycardic. LUNGS: In respiratory distress with some crackles noted. ABDOMEN: Soft. Positive bowel sounds. She is distended with some just generalized tenderness noted throughout. LABORATORY DATA: Hemoglobin on admission was 3.9, white count was 25.1 and platelets are 205. Sodium 140 and potassium 6.1. GFR was 31. PT 18.1 and INR 1.8. Total bilirubin 0.6, alkaline phosphatase 29, ALT is 6 and AST is 17. After 3 units of blood, question the accuracy of labs, hemoglobin is up to 7.9 and white count is 68,000. Potassium remains at 6.1. Lactic acid is 3.8. RADIOLOGICAL DATA: CT of the abdomen and pelvis showed hepatosplenomegaly, [id number] ascites with diffuse stranding noted, cholelithiasis and diffuse colonic mural thickening with dilatation at the cecum and ascending and transverse colon. CT of the head was negative. CT of the chest, right lower lobe pneumonia. IMPRESSION: 1. Gastrointestinal bleed with noted colitis on the right side. 2. Acute anemia. 3. Ascites. 4. Right lower lobe pneumonia. 5. History of leukemia. 6. History of an ovarian tumor greater than 40 years ago, questionable miracle, it went away. 7. Chronic kidney disease. 8. Hyperkalemia. PLAN: 1. Continue to monitor her liver function with PT, INR and CMP. 2. The patient may likely need a diagnostic paracentesis when she becomes more stable and INR improves. 3. We will need to consider colonoscopy again when she becomes more stable to further evaluate her right-sided colitis and her GI bleed. 4. Continue octreotide and Protonix drips. 5. Further recommendations to be made once Dr. Walker sees the patient later today. [address] [address] CONSULTATION Name: GOLDY DAVISON Room: [address] IN M.R.#: [id number] Admission: 12/07/18 Attend Phys: Manny Lewis Discharge: Date of : 38 Report #: [id number] Thank you for allowing us to participate in this patient's care. Please do not hesitate to call with any questions in regard to this consult. <ELECTRONICALLY SIGNED> By: Noah Walker DO 12/13/18 1347 1045 1220Noah Walker DO /nt
--- NOTE | 2018-12-13 13:47 | CON ---
[address] [address] CONSULTATION Name: LANEYGOLDY C Room: [address] IN M.R.#: [id number] Admission: 12/07/18 Attend Phys: Manny Lewis Discharge: Date of : 38 Report #: [id number] THIS REPORT FOR: //name// CC: Ana Macias ADDENDUM TO JOB #[id number] REFERRING PHYSICIAN: Dr. Mitzi Macias. I have seen and examined the patient and agree with the plan that has been outlined by our nurse practitioner, Tammie David. Due to the patient's findings of hepatosplenomegaly with associated ascites, I am concerned that she has a brisk upper GI bleed from her upper GI tract causing overt hematochezia with some element of something going on causing chronic anemia as well. This could also be related to portal hypertensive gastropathy. In any event, she is more hemodynamically stable since being transfused with 4 units packed red cells and a couple of fresh frozen plasma and for this reason, we will proceed with upper endoscopy while she is on the ventilator. I told the family that there is no way we can do an upper endoscopy on her with her being on high flow requirements and this was the best option for the same. We will proceed with upper endoscopy today and make further recommendations thereafter. <ELECTRONICALLY SIGNED> By: Noah Walker 12/13/18 1347 1805 0235Noah Walker DO /nt
--- NOTE | 2018-12-13 15:06 | EKG ---
[place] [address] ELECTROCARDIOGRAM REPORT Name: GOLDY DAVISON Room: [address] ADM IN M.R.#: [id number] Admission: 12/07/18 Attend Phys: Manny Lewis Discharge: Date of : 38 Report #: [id number] THIS REPORT FOR: //name// [facility] Test Date: 2018-12-12 Test Time: 11:48:12 Pat Name: GOLDY DAVISON Department: Room: [address] Gender: F Ticket Worker: NOMAN : 1940 Requested By: Gerry Begum Order Number: [id number] Ari MD: Doug Solano Measurements Intervals [place] Rate: 58 P: 163 LA: 114 QRS: -76 QRSD: 197 T: 112 QT: 674 QTc: 663 Interpretive Statements junctional rhythm with pvc Nonspecific IVCD with LAD Abnormal T, consider ischemia, lateral leads Compared to ECG 12/10/2018 08:00:21 Sinus rhythm no longer present Prolonged QT interval no longer present Electronically Signed On 12-13-2018 15:06:06 CDT by Doug Solano [email or web address] <ELECTRONICALLY SIGNED> By: Doug Solano MD, FAC 12/13/18 1506 1148 1148 Doug Solano MD, FAC /EPI
[2018-12-14] VITALS (35 sets, daily range): BP systolic 81–135; BP diastolic 39–91
[2018-12-14 04:57] LABS: ABSOLUTE BASOPHILS 0.1 thou/uL (0.0-0.2); ABSOLUTE EOSINOPHILS 0.1 thou/uL (0.0-0.7); ABSOLUTE LYMPHOCYTES 0.9 thou/uL (0.8-5.3); ABSOLUTE MONOCYTES 0.4 thou/uL (0.0-1.2); ABSOLUTE NEUTROPHILS 7.1 thou/uL (1.6-8.1); EOSINOPHILS 1.1 %; LYMPHOCYTES 10.1 %; MCH 26.6 pg (26.0-34.0); MCHC 31.7 g/dL (28.0-37.0); MCV 83.9 fL (80.0-100.0); MONOCYTES 5.1 %; MPV 8.4 fl. (7.2-11.1); NUCLEATED RBCS 1 /100WBC; POLYS 82.7 %; RBC 2.51 mil/uL (4.20-5.00); RDW-CV 22.6 % (10.5-14.5); WBC 8.6 thou/uL (4.0-11.0)
[2018-12-14 05:12] LABS: HEMOGLOBIN 6.7 gm/dL (12.0-15.0); PLATELET COUNT* 29 thou/uL (150-400)
[2018-12-14 06:13] LABS: PLATELET ESTIMATE DECREASED
[2018-12-14 06:17] LABS: POLYCHROMASIA 1+
[2018-12-14 06:18] LABS: ANISOCYTOSIS 1+; OVALOCYTES 2+; POIKILOCYTOSIS 2+; SCHISTOCYTES Occasional; TEARDROPS 1+
[2018-12-14 14:37] LABS: HEMATOCRIT 24.8 % (37.0-47.0); HEMOGLOBIN 8.2 gm/dL (12.0-15.0)
[2018-12-14 14:40] LABS: INR 1.2; PROTIME 12.6 Seconds (9.20-11.50)
--- NOTE | 2018-12-14 15:06 | PATH ---
[address] [address] PATHOLOGY RPT PROCEDURE Name: TAMEKA TOTH Room: [address] IN [facility].#: [id number] Admission: 12/07/18 Date of : 38 Discharge: Report #: [id number] Path Case #: [id number] [facility] Accession Number: [id number] . 01 Material submitted: . DISTAL SIGMOID COLON POLYP . 01 Clinical history: . None provided . 02 Diagnosis: Distal sigmoid colon polyp: - Tubular adenoma, negative for high-grade dysplasia. (BHARTI:suzette; 12/14/2018) MBR/12/14/2018 . 02 Electronically signed: . Judson Tejada MD, Pathologist NPI- [id number] . 01 Gross description: . Received in formalin labeled "Tameka Toth, distal sigmoid colon polyp," are four segments of linn to linn-brown soft tissues measuring 1.0 x 1.0 x 0.5 cm in aggregate dimensions and ranging from 0.3 to 0.7 cm in maximum dimension admixed with white-green possible vegetative material. The largest segment is inked and bisected, and the specimen is submitted entirely in cassette A1. (DAC; 12/11/2018) XDC/XDC . 02 Pathologist provided ICD-10: D12.5 . 02 CPT . 483173 Specimen Comment: A courtesy copy of this report has been sent to Specimen Comment: [phone], , . Specimen Comment: Report sent to ,DR SMITH / DR OROPEZA Performed at: [address], [place] [id number] MD Hair Richter MD Phone: [phone] Performed at: 02 [facility] [address], [place], [place] [id number] MD Judson Tejada MD Phone: [phone]
[2018-12-14 17:10] LABS: ANA INTERPRETATION Negative (Negative)
[2018-12-14 17:58] LABS: BF RBC 1060 /mm3; TOTAL CELL COUNT 143 /mm3
[2018-12-14 18:04] LABS: CLARITY CLEAR; TOTAL VOLUME 5060 ml
[2018-12-14 18:15] LABS: BF LYMPHOCYTES 36 %; BF MONOCYTES 29 %; BF POLYS 35 %; BF TISSUE 8 /100 WBC
[2018-12-14 18:17] LABS: SOURCE ASCITES
[2018-12-15] VITALS (11 sets, daily range): BP systolic 75–109; BP diastolic 32–60
[2018-12-15 02:11] LABS: GLYCOHEMOGLOBIN (HGB A1C) 5.2 % (4.8-5.6)
[2018-12-15 06:40] LABS: HEMATOCRIT 22.8 % (37.0-47.0); HEMOGLOBIN 7.4 gm/dL (12.0-15.0); MCH 27.3 pg (26.0-34.0); MCHC 32.6 g/dL (28.0-37.0); MCV 83.8 fL (80.0-100.0); MPV 8.4 fl. (7.2-11.1); RBC 2.72 mil/uL (4.20-5.00); RDW-CV 21.9 % (10.5-14.5); WBC 7.1 thou/uL (4.0-11.0)
[2018-12-15 06:53] LABS: INR 1.3; PROTIME 12.9 Seconds (9.20-11.50)
[2018-12-15 06:56] LABS: ALBUMIN 2.6 g/dL (3.4-5.0); CALCIUM 8.1 mg/dL (8.5-10.1); MAGNESIUM 2.1 mg/dL (1.8-2.4); POTASSIUM 4.1 mmol/L (3.5-5.1); TOTAL BILIRUBIN 0.6 mg/dL (<0.1-1.0); TOTAL PROTEIN 5.2 g/dL (6.4-8.2)
[2018-12-15 13:09] LABS: BODY FLUID LDH 62 IU/L (())
[2018-12-16] VITALS: BP 99/55
[2018-12-16 04:00] VITALS: BP 121/65
[2018-12-16 05:36] LABS: HEMATOCRIT 25.7 % (37.0-47.0); HEMOGLOBIN 8.3 gm/dL (12.0-15.0); MCH 27.3 pg (26.0-34.0); MCHC 32.4 g/dL (28.0-37.0); MCV 84.1 fL (80.0-100.0); MPV 8.4 fl. (7.2-11.1); RBC 3.06 mil/uL (4.20-5.00); RDW-CV 22.8 % (10.5-14.5); WBC 12.9 thou/uL (4.0-11.0)
[2018-12-16 05:53] LABS: CREATININE 0.9 mg/dL (0.6-1.3); MAGNESIUM 2.2 mg/dL (1.8-2.4); POTASSIUM 4.8 mmol/L (3.5-5.1); TOTAL BILIRUBIN 0.6 mg/dL (<0.1-1.0); TOTAL PROTEIN 5.7 g/dL (6.4-8.2)
[2018-12-16 08:05] VITALS: BP 106/62
[2018-12-16 10:38] LABS: SOURCE ABDOMINAL
[2018-12-16 12:00] VITALS: BP 101/57
[2018-12-16 15:53] VITALS: BP 119/62
[2018-12-16 19:50] VITALS: BP 118/56
[2018-12-17] VITALS (7 sets, daily range): BP systolic 99–120; BP diastolic 44–65
[2018-12-17 06:21] LABS: HEMATOCRIT 28.5 % (37.0-47.0); MCH 27.3 pg (26.0-34.0); MCHC 31.7 g/dL (28.0-37.0); MCV 86.1 fL (80.0-100.0); MPV 9.1 fl. (7.2-11.1); RBC 3.31 mil/uL (4.20-5.00); RDW-CV 23.5 % (10.5-14.5); WBC 21.8 thou/uL (4.0-11.0)
[2018-12-17 07:07] LABS: ALBUMIN 3.1 g/dL (3.4-5.0); CALCIUM 8.2 mg/dL (8.5-10.1); CREATININE 0.8 mg/dL (0.6-1.3); MAGNESIUM 2.2 mg/dL (1.8-2.4); POTASSIUM 4.6 mmol/L (3.5-5.1); TOTAL BILIRUBIN 0.5 mg/dL (<0.1-1.0); TOTAL PROTEIN 6.1 g/dL (6.4-8.2)
[2018-12-17 11:04] LABS: INR 1.2; PROTIME 12.5 Seconds (9.20-11.50)
--- NOTE | 2018-12-17 11:08 | PATH ---
[address] [address] PATHOLOGY RPT PROCEDURE Name: GOLDY DAVISON Ethan Room: [address] IN [facility]#: [id number] Admission: 12/07/18 Date of : 38 Discharge: Report #: [id number] Path Case #: [id number] Note [facility] Accession Number: [id number] TESTS RESULT FLAG UNITS REF RANGE LAB Clinician Provided Cytology Information No. of containers..01 Other (Miscellaneous) Source: 01 ASCITES Clinician ICD10: 01 A41.9 J15.6 DIAGNOSIS: 02 ASCITES NEGATIVE FOR OVERT MALIGNANT CELLS. MESOTHELIAL CELLS AND FEW INFLAMMATORY CELLS, PREDOMINANTLY MORPHOLOGICALLY BENIGN-APPEARING LYMPHOCYTES. THIS INTERPRETATION INCLUDES EVALUATION OF A CELL BLOCK. Signed out by: 02 Judson Tejada MD, Pathologist NPI- [id number] Performed by: Pepe Rowland, Clutch Specialist ([facility]) Gross description: 01 70ML, YELLOW, HAZY /LCS FLAG LEGEND: L-Low Normal,H-High Normal,LL-Alert Low,HH-Alert High <-Panic Low,>-Panic High,A-Abnormal,AA-Critical Abnormal Performed at: [address] [place] [address] Hair Richter MD, [address] [place] [address] [address] [facility], [place] [address] Judson Tejada MD, Specimen Comment: A courtesy copy of this report has been sent to Specimen Comment: [phone], , . Specimen Comment: Report sent to ,DR OROPEZA / DR SMITH Specimen Comment: A duplicate report has been generated due to demographic updates. Performed at: [address], [place], [place] [id number] MD Hair Richter MD Phone: [phone]
[2018-12-18] VITALS: BP 105/53
[2018-12-18 04:00] VITALS: BP 100/52
[2018-12-18 04:41] LABS: HEMATOCRIT 23.6 % (37.0-47.0); HEMOGLOBIN 7.6 gm/dL (12.0-15.0); MCH 27.6 pg (26.0-34.0); MCHC 32.3 g/dL (28.0-37.0); MCV 85.4 fL (80.0-100.0); MPV 8.5 fl. (7.2-11.1); PLATELET COUNT* 63 thou/uL (150-400); RBC 2.77 mil/uL (4.20-5.00); RDW-CV 23.5 % (10.5-14.5); WBC 12.2 thou/uL (4.0-11.0)
[2018-12-18 05:08] LABS: CALCIUM 8.1 mg/dL (8.5-10.1); CREATININE 0.8 mg/dL (0.6-1.3); MAGNESIUM 2.2 mg/dL (1.8-2.4); POTASSIUM 4.6 mmol/L (3.5-5.1); TOTAL BILIRUBIN 0.3 mg/dL (<0.1-1.0); TOTAL PROTEIN 5.5 g/dL (6.4-8.2)
[2018-12-18 08:32] VITALS: BP 106/61
[2018-12-18 09:32] LABS: ABSOLUTE EOSINOPHILS 0.2 thou/uL (0.0-0.7); ABSOLUTE LYMPHOCYTES 1.1 thou/uL (0.8-5.3); ABSOLUTE NEUTROPHILS 9.9 thou/uL (1.6-8.1); METAMYELOCYTES 3 %; MYELOCYTES 2 %
[2018-12-18 09:33] LABS: ANISOCYTOSIS 2+; PLATELET ESTIMATE DECREASED; POLYCHROMASIA 1+
[2018-12-18 09:34] LABS: MICROCYTES 1+; OVALOCYTES 2+
[2018-12-18 09:35] LABS: SCHISTOCYTES 1+
[2018-12-18 09:36] LABS: TEARDROPS 1+
[2018-12-18 20:00] VITALS: BP 102/53
[2018-12-19 04:00] VITALS: BP 98/47
[2018-12-19 04:53] LABS: HEMATOCRIT 27.7 % (37.0-47.0); HEMOGLOBIN 8.9 gm/dL (12.0-15.0); MCH 27.3 pg (26.0-34.0); MCHC 32.1 g/dL (28.0-37.0); MCV 84.9 fL (80.0-100.0); MPV 9.5 fl. (7.2-11.1); RBC 3.26 mil/uL (4.20-5.00); RDW-CV 23.1 % (10.5-14.5)
[2018-12-19 05:19] LABS: ALBUMIN 3.1 g/dL (3.4-5.0); CALCIUM 8.2 mg/dL (8.5-10.1); MAGNESIUM 2.2 mg/dL (1.8-2.4); TOTAL BILIRUBIN 0.4 mg/dL (<0.1-1.0); TOTAL PROTEIN 5.9 g/dL (6.4-8.2)
[2018-12-19 08:30] VITALS: BP 101/55
[2018-12-19 17:02] VITALS: BP 100/43
[2018-12-20] VITALS: BP 89/37
[2018-12-20 01:35] VITALS: BP 101/53
[2018-12-20 06:05] LABS: HEMATOCRIT 26.8 % (37.0-47.0); HEMOGLOBIN 8.7 gm/dL (12.0-15.0); MCH 27.1 pg (26.0-34.0); MCHC 32.2 g/dL (28.0-37.0); MPV 8.5 fl. (7.2-11.1); RBC 3.19 mil/uL (4.20-5.00); RDW-CV 23.6 % (10.5-14.5)
[2018-12-20 06:12] LABS: CALCIUM 8.3 mg/dL (8.5-10.1); CREATININE 0.9 mg/dL (0.6-1.3); MAGNESIUM 2.2 mg/dL (1.8-2.4); POTASSIUM 5.3 mmol/L (3.5-5.1)
[2018-12-20 07:39] VITALS: BP 99/43
[2018-12-20 16:37] VITALS: BP 99/55
[2018-12-20 21:00] VITALS: BP 107/56
[2018-12-21 06:03] LABS: HEMATOCRIT 29.1 % (37.0-47.0); HEMOGLOBIN 9.3 gm/dL (12.0-15.0); MCH 26.8 pg (26.0-34.0); MCHC 32.1 g/dL (28.0-37.0); MCV 83.7 fL (80.0-100.0); MPV 8.7 fl. (7.2-11.1); NUCLEATED RBCS 1 /100WBC; PLATELET COUNT* 141 thou/uL (150-400); RBC 3.47 mil/uL (4.20-5.00); RDW-CV 23.4 % (10.5-14.5); WBC 19.1 thou/uL (4.0-11.0)
[2018-12-21 06:16] LABS: INR 1.2; PROTIME 11.9 Seconds (9.20-11.50)
[2018-12-21 06:24] LABS: ALBUMIN 3.1 g/dL (3.4-5.0); CALCIUM 7.9 mg/dL (8.5-10.1); CREATININE 1.1 mg/dL (0.6-1.3); MAGNESIUM 1.9 mg/dL (1.8-2.4); POTASSIUM 4.9 mmol/L (3.5-5.1); TOTAL BILIRUBIN 0.4 mg/dL (<0.1-1.0); TOTAL PROTEIN 5.8 g/dL (6.4-8.2)
[2018-12-21 07:01] LABS: ABSOLUTE LYMPHOCYTES 1.7 thou/uL (0.8-5.3); ABSOLUTE MONOCYTES 0.6 thou/uL (0.0-1.2); ABSOLUTE NEUTROPHILS 16.8 thou/uL (1.6-8.1); ANISOCYTOSIS 2+; ATYPICAL LYMPHS 3 %; METAMYELOCYTES 1 %; MYELOCYTES 1 %; PLATELET ESTIMATE ADEQUATE
[2018-12-21 08:00] VITALS: BP 96/44
[2018-12-21 14:14] VITALS: BP 96/44
[2018-12-21 16:00] VITALS: BP 93/46
[2018-12-21 21:30] VITALS: BP 103/53
[2018-12-22] MEDS ORDERED: LASIX 40 MG TAB40 M1 PO (11:05)
[2018-12-22] MEDS ORDERED: CEFDINIR300 MG PO (11:05)
[2018-12-22] MEDS ORDERED: IPRAT-ALBUT 0.5-3 ML INH (11:05)
[2018-12-22] MEDS ORDERED: MIDODRINE HCL 55 M1 PO (11:05)
[2018-12-22] MEDS ORDERED: SPIRONOLACTONE25 MG PO (11:05)
[2018-12-22] MEDS ORDERED: PREDNISONE 20 M20 MG PO (11:05)
[2018-12-22] MEDS ORDERED: LACTULOSE20 GM/30 M PO (11:05)
--- NOTE | 2018-12-23 13:09 | PATH ---
[address] [address] PATHOLOGY RPT PROCEDURE Name: TAMEKA TOTH Room: [address] IN ..#: [id number] Admission: 12/07/18 Date of : 38 Discharge: 12/22/18 Report #: [id number] Path Case #: [id number] [facility] Accession Number: [id number] . 01 Material submitted: . PART A: BONE MARROW BIOPSY PART B: BONE MARROW CLOT PART C: BONE MARROW ASPIRATE SLIDES PART D: PERIPHERAL SMEARS PART E: PERIPHEARL BLD FLOW SEND OUT . 01 Clinical history: . This is a 78-year-old woman with leukocytosis, anemia and thrombocytopenia. . Severe anemia with anisopoikilocytosis; macrocytic anemia . 02 Diagnosis: Bone marrow aspirate, biopsy, cell clot and peripheral blood: - Peripheral blood with mild leukocytosis / neutrophilia with left-shifted maturation, severe normocytic anemia and hflnivlh-zq-tutpbh thrombocytopenia. - HYPERCELLULAR BONE MARROW WITH TRILINEAGE HEMATOPOIESES, MILD TRILINEAGE DYSPOIESIS, AND INCREASED ATYPICAL AND CLUSTER MEGAKARYOCYTES, CONSISTENT WITH A MYELOPROLIFERATIVE PROCESS. (SEE COMMENT) - Diffuse /4+ reticulin fibrosis. - No stainable iron. . (CLW:mml; 12/22/2018) . . Please see included [facility] report [id number]. AZJ/12/23/2018 . 02 Comment: Overall, the bone marrow is hypercellular for the patient's age with trilineage hematopoiesis, mild trilineage dyspoiesis, and increased, clustered and focally atypical megakaryocytes without an overall increase in blasts. There is diffuse 4/4+ reticulin fibrosis and no stainable iron. The findings are consistent with a myeloproliferative process. The histological differential diagnosis includes myeloproliferative neoplasms or mixed myelodysplastic syndrome / myeloproliferative neoplasm. Correlation with clinical history, additional laboratory data and cytogenetic / FISH studies is required. The case is discussed with Dr. Leticia Tobar on 12/23/18 at approximately 9:30 AM. . (CLW:sathish; 12/22/2018) . 02 [place] [address] PATHOLOGY RPT PROCEDURE Name: TAMEKA TOTH Room: [address] IN M.R.#: [id number] Admission: 12/07/18 Date of : 38 Discharge: 12/22/18 Report #: [id number] Path Case #: [id number] Electronically signed: . Wanda Mcelroy MD, Pathologist NPI- [id number] . 01 Gross description: . A. The specimen is received in formalin, labeled "Tameka Toth, core biopsy". Received are two needle cores of light linn bone measuring 0.3 and 0.5 cm in length, with each measuring 0.3 cm in diameter. The specimen is submitted entirely in cassette A1, following light decalcification. . B. The specimen is received in formalin, labeled "Tameka Kingel, clot". Received is blood coagulum measuring 2.0 x 2.0 x 1.7 cm in greatest dimensions. The specimen is submitted entirely in cassettes B1 through B3. (CAA; 12/18/2018) QAC/QAC . 02 Microscopic: . CBC Data (12/18/2018): WBC 12,200 /uL, RBC 2.77, hemoglobin 7.6 g/dL, hematocrit 23.6%, MCV 85.4 fL, MCH 27.6 pg, MCHC 32.3 g/dL, RDW 23.3%, and platelet count 63,000 /uL. Manual white blood cell differential: segs 73%, bands 3%, lymphs 9%, monos 8%, eos 2%, metas 3%, myelos 2%. . Peripheral Blood Smear: Cytomorphological examination of the Gutierrez's stained peripheral blood smear confirms the provided data. Red blood cells show severe normocytic anemia with moderate anisopoikilocytosis. Scattered elliptocytes and dacryocytes (pointed RBCs, teardrop cells) are noted. While a rare schistocyte / fragmented RBC may be noted on scanning, there is not a significant number of schistocytes or microspherocytes. White blood cells are mildly increased in number. They are predominantly segmented neutrophils with left-shifted maturation. A rare blast without John rods is noted on scanning. Lymphocytes are predominantly small, round, and mature appearing with condensed chromatin and scant cytoplasm with admixed large granular lymphocytes. Monocytes are mature. Platelets are markedly decreased in number and mainly normal in morphology with rare larger platelets noted. . Aspirate Smears: Cytomorphological examination of the Gutierrez's stained aspirate smears show no intact spicules present. Scattered hematopoietic progenitor cells are identified; therefore, this most likely represents a hemodilute sample. Cytomorphological examination of the Gutierrez's stained touch imprints show hematopoietic progenitor cells and megakaryocytes present. The myeloid to erythroid ratio is 2:1. Full myeloid maturation is identified and is mildly dyspoietic with abnormal nuclear lobation and cytoplasmic granularity. Erythroid maturation is mildly dyserythropoietic with irregular nuclear contours, left-shifted maturation and nuclear [facility] [address] [place] [address] PATHOLOGY RPT PROCEDURE Name: TAMEKA TOTH Room: [address] IN ..#: [id number] Admission: 12/07/18 Date of : 38 Discharge: 12/22/18 Report #: [id number] Path Case #: [id number] cytoplasmic dyssynchrony. In a 500 cell differential, there are 1% blasts (no John rods are seen), 55% more differentiated myeloids, 32% erythroid precursors, 11% lymphocytes and 1% plasma cells. Megakaryocytes are proportional in number and both normal and abnormal in morphology with variable sizes and nuclear abnormalities. Both micromegakaryocytes and atypical megakaryocytes are noted. No lymphoid aggregates or markedly atypical lymphoid cells are seen. Plasma cells are without atypia. Iron stain of the aspirate smear shows 0/4+ iron positivity. It is predominantly blood and peripheral blood elements with no intact spicules present. No ringed sideroblasts are identified. . Core Biopsy and Cell Clot: The decalcified bone marrow core biopsy is small, but adequate. The bone marrow is hypercellular with an overall cellularity approaching 100%. There is a diffusely fibrotic interstitium. The myeloid to erythroid ratio appears 2:1. Myeloid and erythroid maturation are mildly dyspoietic. Megakaryocytes are increased in number, clustered and focally atypical. No lymphoid aggregates or markedly atypical lymphoid cells are seen. Bony trabeculae are fragmented. Blood vessels are unremarkable. The cell clot is predominantly blood and peripheral blood elements with no intact spicules present. Properly-controlled special stains are performed. . Block A1: Iron: 0/4+ iron positivity (no stainable iron) Reticulin: Diffuse 4/4+ reticulin fibrosis Iron (block B1, B2, B3): 0/4+ iron positivity (no stainable iron); predominantly blood and peripheral blood elements. . Due to the hemodilute nature of the aspirate specimen, and to identify cells in a tissue architectural context, properly-controlled immunohistochemical stains are performed. . Block A1: CD34: no increase in blasts CD117: stains occasional cells, no increase in blasts Myeloperoxidase: confirms the M:E ratio Glycophorin A: confirms the M:E ratio . Flow Cytometry: Flow cytometric immunophenotypic analysis was performed at [facility]. The diagnosis is "relatively increased neutrophilic cells with a left shift (nonspecific), no overt increase in blasts." There are 5% lymphocytes. Of the lymphocytes, there are 0.7% polyclonal B-cells. T-cells have a CD4/CD8 ratio of 1.6 and no aberrant T-cell antigen expression. There are 0.2% blasts. Please see separate flow cytometry report from [facility] ([id number]). . Cytogenetics Analysis: [address] [address] PATHOLOGY RPT PROCEDURE Name: TAMEKA TOTH Room: M.313-P DIS IN M.R.#: [id number] Admission: 12/07/18 Date of : 39 Discharge: 12/22/18 Report #: [id number] Path Case #: [id number] Cytogenetic chromosomal analysis is pending at [facility] ([id number]). FISH analysis is pending at [facility] ([id number]). . (CLW:sathish; 12/22/2018) . . . Special studies report received from [facility], [address] [place] [address], [address], [place], [address], on case [id number], labeled with their number [id number], dated 12/20/2018. . Flow Cytometry: Hematologic Neoplasia Assessment . Clinical History Pneumonia, sepsis, leukocytosis; rule out CML . Indication for Study Evaluation for chronic lymphocytic leukemia . Specimen Peripheral Blood . Viability 84% (7AAD exclusion) . Interpretation Peripheral Blood: - Relatively increased neutrophilic cells with a left shift (non-specific), no overt increase in blasts . Comments Correlation with available clinical, laboratory, and morphologic data is recommended. Cytogenetic analysis, BCR-ABL testing, and/or JAK2 testing are being ordered. . Populations Analyzed Myeloid Blasts: 0.2% No significant blast population detected Lymphocytes: 5% B-cells: 0.7%, polytypic/polyclonal sIg light chain pattern T-cells: no significant abnormalities of the markers tested CD4+ T-cells: 1.6% (including 0.1% CD57+ cells) CD8+ T-cells: 1.0% (including 0.5% CD57+ cells) CD4:CD8: 1.6 NK cells: 1.2% Neutrophils: 88% Relatively increased; immunophenotypic features consistent with left-shift (decreased CD16, CD10, and CD11b) [place] [address] PATHOLOGY RPT PROCEDURE Name: TAMEKA TOTH Room: [address]#: [id number] Admission: 12/07/18 Date of : 39 Discharge: 12/22/18 Report #: [id number] Path Case #: [id number] Monocytes: 3% No significant abnormalities of the markers tested Eosinophils: 3% No relative increase Basophils: 0.6% No relative increase . Morphologic Evaluation A slide was reviewed for associate quality engineer purposes only. . Specimen Description Total cell yield: 12.40 x 10 and 6 . Reagent(s) Used CD2, CD3, CD4, CD5, CD7, CD8, CD10, CD11b, CD13, CD14, CD16, CD19, CD20, CD33, CD34, CD38, CD45, CD56, CD57, CD64, CD117, HLA-DR, kappa, lambda . at [facility]. Phyllis Stover MD Pathologist . Intended Use Flow cytometry is optimally used to immunophenotypically characterize abnormal populations when they are detected. Negative flow cytometry results do not exclude lymphoma or neoplasia. Possible false negative flow cytometry results may occur in, but are not limited to, the following: neoplastic cells in Hodgkin lymphoma are not typically adequately represented by routine clinical flow cytometry; neoplastic cells may be lost or inadequately represented due to degeneration, sample processing, sampling artifact, or patchy involvement; plasma cells are typically underrepresented by flow cytometry; immature cells/blasts may be underrepresented due to hemodilution; myeloproliferative disorders and low grade myelodysplasia may not have immunophenotypic abnormalities or increased blasts. Correlation with all available clinical, laboratory, and morphologic data is always necessary to assess for the possibility of false negative flow cytometry results and to establish a diagnosis. Each marker in this analysis was used to assess for potential antigenic abnormalities or to evaluate detected abnormalities. . Disclaimer(s) This test was performed at [facility]. at [address] [place] [address], [id number] - Sample Dye Mixer: Filemon Meraz MD. [facility] is a business unit of [facility] a wholly-owned subsidiary of [employer]. . Any image or images that accompany this report are strategic partnership representative images only and should not be used to render a diagnosis. . This test was developed [place] [address] PATHOLOGY RPT PROCEDURE Name: TAMEKA TOTH Room: [address] IN [facility]#: [id number] Admission: 12/07/18 Date of : 39 Discharge: 12/22/18 Report #: [id number] Path Case #: [id number] [facility]. It has not been cleared or approved by the Food and Drug Administration (FDA). The FDA has determined that such clearance or approval is not necessary. . For inquiries, the physician may contact Lab: [phone] . A complete copy of the report is on file. . Professional services performed by [facility] at [address], [place] [address]. Technical services performed by [facility], [facility] at [address], [place] [address]. . (AMJ 12/21/2018) . . 02 Pathologist provided ICD-10: D72.829, D64.9, D69.6, C96.9, D47.1 . 02 CPT . 846219, 052371, 716875, 990728, 948572, 525925, 408168, W88160, W21890, 805512, 056375, 525335, 096762 Specimen Comment: A courtesy copy of this report has been sent to Specimen Comment: [phone]. Specimen Comment: Report sent to Performed at: 01 [facility] [address] [id number] MD Hair Richter MD Phone: [phone] Performed at: 02 [facility] [address] [id number] MD Twan Polanco MD Phone: [phone]
--- NOTE | 2018-12-24 12:42 | CON ---
[address] [address] CONSULTATION Name: GOLDY DAVISON Room: [address]R.#: [id number] Admission: 12/07/18 Attend Phys: Manny Lewis Discharge: 12/22/18 Date of : 39 Report #: [id number] THIS REPORT FOR: //name// CC: [place] Mitzi Macias DATE OF SERVICE: 12/13/2018 NEPHROLOGY CONSULTATION CONSULTING PHYSICIAN: Dr. Begum REASON FOR NEPHROLOGY CONSULTATION: Hypernatremia. REASON FOR ADMISSION: Rectal bleeding. HISTORY OF PRESENT ILLNESS: This is a 78-year-old female with history of leukemia, enlarged spleen, enlarged liver, prolapsed uterus and bladder who came in because she was having rectal bleeding. GI evaluated her. Based upon a CT scan, she was found to have right-sided colitis. She was also diagnosed with cirrhosis in this admission and autoimmune serologies are being checked. There was also evidence of possible CML and Hematology was also consulted to see her. She underwent a colonoscopy, which showed hemorrhoids and a polyp and some evidence of colitis. She also had to be intubated for some time because of acute hypoxic respiratory failure when she did have bilateral pleural effusions and she was also diuresed with Lasix. She was found to have an ejection fraction of 35%. Currently, her x-ray is showing only right-sided pleural effusion and she is actually extubated. The patient has not developed hyponatremia for the past 3 days, has been having rising sodium and sodium is 148 today, hence Nephrology has been consulted. She is also currently on TPN. She is also being treated for pneumonia. She also has ascites, which is secondary to her portal hypertension according to GI. Currently, she is awake and alert and eating ice chips. ALLERGIES: PENICILLIN, SULFA AND CODEINE. REVIEW OF SYSTEMS: As mentioned in history of present illness, otherwise negative. PAST MEDICAL AND SURGICAL HISTORY: Include appendicitis, tonsillectomy, leukemia, large spleen, congestive heart failure, thyroid disease and enlarged liver and prolapsed uterus and bladder. HOME MEDICATIONS: Include levothyroxine only. FAMILY HISTORY: Not pertinent due [place] [address] CONSULTATION Name: GOLDY DAVISON Room: [address]#: [id number] Admission: 12/07/18 Attend Phys: Manny Lewis Discharge: 12/22/18 Date of : 39 Report #: [id number] SOCIAL HISTORY: According to the patient's record, she does not use alcohol or smoke or take recreational drugs. PHYSICAL EXAMINATION: VITAL SIGNS: Blood pressure is 106/47, temperature is 36.4, pulse rate 78, respiratory rate is 22 and pulse ox is 98% and she is on 3 liters of oxygen by nasal cannula. GENERAL: She is awake, alert, oriented x 3. HEAD, EYES, EARS, NOSE AND THROAT: Mucous membranes are slightly dry. NECK: There is no JVD. CHEST: Bilaterally clear to auscultation, no crackles or wheezing. CARDIOVASCULAR: S1, S2 normal. No murmurs. ABDOMEN: Distended. Umbilicus is flat. Otherwise, belly is nontender and soft. Bowel sounds are diminished. EXTREMITIES: There is no lower extremity edema. NEUROLOGICAL FUNCTION: Gross neurological function seems to be intact. PSYCHIATRIC: Mood seems to be normal. LABORATORY DATA: Her white count is 21.4; hemoglobin 7.7; platelet count is 34,000. Sodium is 148, BUN is 37, creatinine is 0.9. Her AST was 11, ALT was 11 and alkaline phosphatase are 33. Other labs are reviewed. IMAGING: Chest x-ray, chest CT, liver reviewed. ASSESSMENT: 1. Hypernatremia in the setting of diuretic use. 2. Acute blood loss anemia secondary to gastrointestinal bleed. Colonoscopy showed hemorrhoids, also underwent endoscopy with banding on 12/07/2018. 3. 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 4. Ascites with hepatosplenomegaly secondary to portal hypertension secondary to cirrhosis. 5. Pneumonia, on antibiotics as per primary. She is still on Levophed, septic shock. 6. Thrombocytopenia secondary to splenomegaly. 7. Chronic congestive heart failure, systolic dysfunction, ejection fraction of 35%. PLAN: 1. The patient currently looks euvolemic and in fact slightly hypovolemic. I would hold off on the Lasix today and Lasix can be used on an as needed basis and we will give her 1 liter of D5 water. Sodium has been decreased and TPN already, can continue TPN for now. 2. Kidney function remains normal. 3. Try to maintain a good mean arterial pressure of over 70. [address] [address] CONSULTATION Name: GOLDY DAVISON Room: [address] IN [place]#: [id number] Admission: 12/07/18 Attend Phys: Manny Lewis Discharge: 12/22/18 Date of : 39 Report #: [id number] Thank you for this consultation. We will continue to follow along with you and discuss the plan with the patient as well as the patient's nurse. <ELECTRONICALLY SIGNED> By: Jessica Mathis MD 12/24/18 1242 0845 [id number] Mathis MD /nt
== END 2018-12-22 15:45 | DRG 853 ==
LOC: M.ERS 22:07 → M.TBA-ER 12-07 00:09 → M.ICU 12-07 00:09 → M.2W 12-15 18:30 → M.3W 12-19 09:54
PROVIDERS: Family Medicine; Internal Medicine; Internal Medicine Critical Care Medicine; Internal Medicine Gastroenterology; Internal Medicine Hematology & Oncology; Internal Medicine Pulmonary Disease; Nurse Practitioner Adult Health; ADMIT Internal Medicine
PROC: 30233K1 Transfusion of Nonautologous Frozen Plasma into Peripheral Vein, Percutaneous Approach (ICD-10-PCS; principal; 2018-12-07)
PROC: 30233R1 Transfusion of Nonautologous Platelets into Peripheral Vein, Percutaneous Approach (ICD-10-PCS; principal; 2018-12-07)
PROC: 0BH17EZ Insertion of Endotracheal Airway into Trachea, Via Natural or Artificial Opening (ICD-10-PCS; principal; 2018-12-07)
PROC: 30233N1 Transfusion of Nonautologous Red Blood Cells into Peripheral Vein, Percutaneous Approach (ICD-10-PCS; principal; 2018-12-07)
PROC: 5A1945Z Respiratory Ventilation, 24-96 Consecutive Hours (ICD-10-PCS; principal; 2018-12-07)
PROC: 02HV33Z Insertion of Infusion Device into Superior Vena Cava, Percutaneous Approach (ICD-10-PCS; 2018-12-07)
PROC: 06LY4CC Occlusion of Hemorrhoidal Plexus with Extraluminal Device, Percutaneous Endoscopic Approach (ICD-10-PCS; 2018-12-07)
PROC: 0DBN8ZZ Excision of Sigmoid Colon, Via Natural or Artificial Opening Endoscopic (ICD-10-PCS; 2018-12-10)
PROC: 0W9G3ZZ Drainage of Peritoneal Cavity, Percutaneous Approach (ICD-10-PCS; 2018-12-15)
PROC: 0W9G3ZZ Drainage of Peritoneal Cavity, Percutaneous Approach (ICD-10-PCS; 2018-12-17)
PROC: 07DR3ZX Extraction of Iliac Bone Marrow, Percutaneous Approach, Diagnostic (ICD-10-PCS; 2018-12-18)
DX: A41.9 Sepsis, unspecified organism (principal); J15.6 Pneumonia due to other Gram-negative bacteria; R65.21 Severe sepsis with septic shock; I85.01 Esophageal varices with bleeding; J96.01 Acute respiratory failure with hypoxia; I50.43 Acute on chronic combined systolic (congestive) and diastolic (congestive) heart failure; R18.8 Other ascites; K92.2 Gastrointestinal hemorrhage, unspecified; C91.10 Chronic lymphocytic leukemia of B-cell type not having achieved remission; I42.9 Cardiomyopathy, unspecified; E87.0 Hyperosmolality and hypernatremia; D62 Acute posthemorrhagic anemia; K76.6 Portal hypertension; N17.9 Acute kidney failure, unspecified; I31.3 Pericardial effusion (noninflammatory); E44.0 Moderate protein-calorie malnutrition; D58.9 Hereditary hemolytic anemia, unspecified; I42.0 Dilated cardiomyopathy; I13.0 Hypertensive heart and chronic kidney disease with heart failure and stage 1 through stage 4 chronic kidney disease, or unspecified chronic kidney disease; N18.9 Chronic kidney disease, unspecified; E87.5 Hyperkalemia; K52.9 Noninfective gastroenteritis and colitis, unspecified; E03.9 Hypothyroidism, unspecified; R16.2 Hepatomegaly with splenomegaly, not elsewhere classified; D69.6 Thrombocytopenia, unspecified; K74.60 Unspecified cirrhosis of liver; K31.89 Other diseases of stomach and duodenum; E83.39 Other disorders of phosphorus metabolism; K72.90 Hepatic failure, unspecified without coma; R00.0 Tachycardia, unspecified; I95.9 Hypotension, unspecified; K64.4 Residual hemorrhoidal skin tags; E86.0 Dehydration; Z68.21 Body mass index [BMI] 21.0-21.9, adult; Z88.6 Allergy status to analgesic agent; Z88.0 Allergy status to penicillin; Z88.2 Allergy status to sulfonamides; Z90.49 Acquired absence of other specified parts of digestive tract

== ENCOUNTER 2018-12-22 12:50 | Inpatient (IN) | payer MEDICARE ==
[~2018-12-22] VITALS: Ht 165.1 cm; Wt 45.9 kg
--- NOTE | ~2018-12-22 | PROC ---
[address] [address] PROCEDURE REPORT Name: GOLDY DAVISON Room: [facility] IN ..#: [id number] Admission: 12/22/18 Attend Phys: Maxime Greene MD Discharge: Date of : 38 Report #: [id number] THIS REPORT FOR: //name// For GI report, Please see the Provation report in Perceptive 7 content. By: 0645Medical Records Staff CHRIS /NHUNG
--- NOTE | ~2018-12-22 | PROC ---
[address] [address] PROCEDURE REPORT Name: GOLDY DAVISON [place]: [facility] [place]#: [id number] Admission: 12/22/18 Attend Phys: Maxime Greene MD Discharge: Date of : 38 Report #: [id number] THIS REPORT FOR: //name// For GI report, please see the Provation report in Perceptive 7 content. By: 0645Medical Records Staff CHRIS /NHUNG
[~2018-12-22 12:50] MED LIST changes: +CEFDINIR300 MG PO; +IPRAT-ALBUT 0.5-3 ML INH; +LACTULOSE20 GM/30 M PO; +LASIX 40 MG TAB40 M1 PO; +MIDODRINE HCL 55 M1 PO; +PREDNISONE 20 M20 MG PO; +SPIRONOLACTONE25 MG PO; -SYNTHROID125 MC1; +SYNTHROID125 MC1 PO
[2018-12-22 16:30] VITALS: BP 86/44
--- NOTE | 2018-12-22 16:49 | NUR ---
PT TO ROOM 333 PER AMBULATORY FROM 313 WITH STAFF ,FAMILY AND ALL BELONGINGS. PT IS ALERT AND ORIENTATED AND IS ORIENTATED TO ROOM AND CONTROLS. PT ASSISTED TO BATHROOM AND VOIDS CLEAR YELLOW URINE. PT DID AMBULATE TO BATHROOM WITH GAITBELT AND WALKER AND MIN ASSIST OF 1.PT DENIES PAIN AT PRESENT.
[2018-12-22 20:00] VITALS: BP 92/47
[2018-12-23 04:48] LABS: HEMATOCRIT 28.5 % (37.0-47.0); HEMOGLOBIN 9.2 gm/dL (12.0-15.0); MCH 26.7 pg (26.0-34.0); MCHC 32.2 g/dL (28.0-37.0); MCV 82.9 fL (80.0-100.0); MPV 8.6 fl. (7.2-11.1); RBC 3.44 mil/uL (4.20-5.00); RDW-CV 22.4 % (10.5-14.5); WBC 14.8 thou/uL (4.0-11.0)
[2018-12-23 05:05] LABS: CALCIUM 8.3 mg/dL (8.5-10.1); POTASSIUM 4.8 mmol/L (3.5-5.1)
--- NOTE | 2018-12-23 06:36 | NUR ---
ASSUMED CARE AT 1920. ALERT AND ORIENTED. PLEASANT. DAUGHTER STAYED OVERNIGHT. HX OF ASCITES, ENLARGED LIVER AND HAS DISTENDED ABD. DOES HAVE OSTOMY BAG TO RLQ ABD WITH VERY MINIMAL SEROUS DRAINAGE. GAUZE DRSG X 2 TO MID/LOWER BACK. BLE EDEMA 2-3+. TOOK PILLS WHOLE WITHOUT ISSUES. MIN ASSIST WITH GAIT BELT AND WALKER. UP TO BATHROOM. DOES OWN CARES. WEARS PULLUPS. PT WAS UP EVERY HOUR OR MORE DURING THE NIGHT TO TOILET OR FOR REPOSTIONING IN BED. DID HAVE SEVERAL SOFT/LOOSE STOOLS OVERNIGHT. DID NOT SLEEP MUCH BECAUSE OF THIS. REMINDED PT TO USE CALL LIGHT AND NOT GET UP WITHOUT NURSING STAFF.
[2018-12-23 07:36] VITALS: BP 91/46
[2018-12-23 15:43] VITALS: BP 91/46
--- NOTE | 2018-12-23 16:21 | NUR ---
SW met with pt and pt and pt dtr to complete initial assessment, introduce self, and SW role. Pt alert, oriented, resting in bed. Pt lives at home with , 3 dtrs and a grandson. Pt has needed DME. Pt goal to be at least at prior level of functioning, as independent as possible. SW reviewed team conference summary and plan for team to reassess pt length of stay during team conference next Friday. Pt and pt family in agreement with plan. SW to continue to follow to assist with safe dc planning.
[2018-12-23 20:00] VITALS: BP 92/41
--- NOTE | 2018-12-24 04:55 | NUR ---
ASSUMED CARE AT 1920. ALERT AND ORIENTED. PLEASANT. MIN ASSIST WITH GAIT BELT AND WALKER. VERY WEAK. UP TO BATHROOM. DOES OWN CARES. WEARS PULLUPS. OSTOMY DRAIN BAG INTACT TO RLQ ABD WITH VERY MINIMAL SEROUS DRAINAGE. BLE EDEMA 2+. DID HAVE SMALL NOSEBLEED THIS AM. WAS UP EVERY HOUR DURING THE NIGHT TO TOILET. VERY LITTLE SLEEP. DAUGHTER SLEPT OVERNIGHT. CALL LIGHT IN REACH AND BED ALARM ON.
[2018-12-24 08:00] VITALS: BP 97/47
--- NOTE | 2018-12-24 10:31 | NUR ---
has returned call and states he is still awaiting for some of pathology to be completed but plans to have visit pt on friday to discuss further plans.pt alert and orientated .pt weak but ambulates with walker and gaitbelt and sba to bathroom. pt has had loose bm this am and voids well. abdomen appears round,scant drainage in bag from old drain site.
--- NOTE | 2018-12-24 14:47 | NUR ---
pt has voided and reports feeling she has voided well. bladder scan done with no residual indicated on scanner.pt reports having back pain with tylenol given. pt rests in bed now with daughter massageing her back. pt remains alert and orientated.
--- NOTE | 2018-12-24 16:40 | NUR ---
pt calls for assist to bathroom and is able to wipe self but requests assist with pants up and down due to fatigue. pt has been continent of B+B visits with and 2 daughters.prn for back pain given this afternoon with fair effect. pt comes to sitting on bed with assist then able to stand and walk well with walker,gaitbelt and min assist of 1. pt remains alert and orientated.hourly rounding continues.
[2018-12-24 20:00] VITALS: BP 97/44
--- NOTE | 2018-12-25 00:41 | NUR ---
ASSUMED CARE AT 1930. PATIENT RESTING IN RECLINER. WENT TO BED AROUND 2029. UP WITH SBA, GAIT BELT, WALKER. NEEDS A LITTLE HELP GOING FROM LYING TO SITTING POSITION, BUT ABLE TO RISE AFTER THAT. VOIDS HOURLY PER TOILET. DOES OWN HYGIENE BUT STATES UNABLE TO PULL BRIEFS UP OR DOWN. ASSISTED WITH TURNS. MEDICATED FOR BACK PAIN WITH APAP, SEE MAR. OSTOMY BAG TO PERICENTESIS SITE DRY. HELD COLACE FOR LOOSE STOOLS, IS ON LACTULOSE. DSSGS TO BACK C/D/I. DAUGHTER SPENDING THE NIGHT. HOURLY ROUNDS CONTINUE. CALL LITE IN REACH, USED APPROPRIATELY.
--- NOTE | 2018-12-25 05:37 | NUR ---
SLEPT BETWEEN VOIDS. HAD LARGE BM THIS MORNING, HAD A FEW SMALL ONES EARLIER. MEDICATED FOR BACK PAIN. DRESSINGS TO BACK C/D/I. NO DRAINAGE TO RLQ OSTOMY BAG FROM PARACENTESIS SITE. DAUGHTER REMAINS IN ROOM, BUT DOES NOT HELP WITH CARES. TURNS SELF IN BED, TAKES PILLS IN RECLINER. HOURLY ROUNDS CONTINUE. BED ALARM ON. CALL LITE IN REACH.
--- NOTE | 2018-12-25 18:55 | NUR ---
C/O BACK PAIN, LIDOCAINE PATCH AND HEATING PAD. NO FURTHER COMPLAINTS. UP TO BATH ROOM. WITH ROLLING WALKER
[2018-12-25 20:00] VITALS: BP 92/45
--- NOTE | 2018-12-26 05:22 | NUR ---
ASSUMED PT CARE AT 1930. PT ALERT AND ORIENTED X4, POLITE AND COOPERATIVE WITH CARES. PT TAKES PILLS WHOLE WITH WATER WITHOUT DIFFICULTY. PT UP NUMEROUS TIMES OVERNIGHT TO VOID WITH SBA, GAIT BELT AND WALKER. PT DOES OWN PERICARE BUT NEEDS ASSIST WITH TAKING BRIEFS UP AND DOWN. PT DAUGHTER IN ROOM OVERNIGHT ASSISTING WITH PT GAITBELT AND SLIPPER SOCKS. PRN TYLENOL TWICE THIS SHIFT FOR BACK PAIN. PT REFUSED TRAMADOL. PT ALSO REFUSED NEWLY ORDERED LOVENOX CITING RECENT GI BLEED. PT ABDOMEN DISTENDED FROM ASCITES. PT CAN TURN SELF IN BED. USES CALL LIGHT APPROPRIATELY. CALL LIGHT AND FREQUENTLY USED ITEMS WITHIN REACH. HOURLY ROUNDING IN PROGRESS, WILL CONTINUE TO MONITOR.
[2018-12-26 07:54] VITALS: BP 105/42
--- NOTE | 2018-12-26 17:48 | NUR ---
PT CARE ASSUMED THIS AM, ASSESSMENT AND VITAL SIGNS COMPLETED DOCUMENTED. PT HAS PARTICIPATED WITH ALL THERAPIES TODAY AND CONTINUES TO PROGRESS TOWARD DISCHARGE GOALS. PT'S FAMILY IS HERE MOST OF THE TIME AND THEY ARE VERY SUPPORTIVE. PT AND FAMILY EDUCATED ON THE IMPORTANCE OF PT DOING MORE FOR HERSELF. FALL PRECAUTIONS AND HOURLY ROUNDING CONTINUE.
[2018-12-26 20:00] VITALS: BP 83/38
--- NOTE | 2018-12-27 05:14 | NUR ---
ASSUMED PT CARE AT 1930. PT ALERT AND ORIENTED X4, POLITE AND COOPERATIVE WITH CARES. PT TAKES PILLS WHOLE WITH WATER WITHOUT DIFFICULTY. PT UP NUMEROUS TIMES OVERNIGHT TO VOID WITH SBA, GAIT BELT AND WALKER. PT DOES OWN PERICARE BUT NEEDS ASSIST WITH TAKING BRIEFS UP AND DOWN. PT DAUGHTER IN ROOM OVERNIGHT, ASSISTED WITH CARES. PT GIVEN ONE TIME DOSE OF KETORALAC FOR BACK PAIN WITH MODERATE RELIEF. PT ABDOMEN REMAINS DISTENDED. PT CAN TURN SELF IN BED. USES CALL LIGHT APPROPRIATELY. CALL LIGHT AND FREQUENTLY USED ITEMS WITHIN REACH. HOURLY ROUNDING IN PROGRESS, WILL CONTINUE TO MONITOR.
[2018-12-27 07:35] VITALS: BP 90/40
--- NOTE | 2018-12-27 18:04 | NUR ---
PT IS UP WITH MIN ASSIST OF ONE, GAIT BELT AND WALKER, GOES TO THE BATHROOM APPROXIMATELY EVERY 45 MINUTES. PT CONTINUES TO C/O BACK PAIN BUT IS NOW REFUSING TYLENOL DUE TO POTENTIAL HARM TO HER LIVER SO SHE NOW HAS AN ORDER FOR PRN FLEXERIL. PT STATES THE DOSE SHE TOOK MAY HAVE HELPED. PT IS VERY GOOD AT DELEGATING BUT NEEDS TO BE ENCOURAGED TO DO MORE FOR HERSELF, FAMILY STATES THEY UNDERSTAND AND AGREE SHE COULD DO MORE FOR HERSELF. PT HAS BEEN CONTINENT OF BOWEL AND BLADDER AND IS ABLE TO DO HER SIS CARE AND CLOTHING ADJUSTMENTS WITH MIN ASSIST. PT TAKES HER PILLS WITHOUT DIFFICULTY AND HAS A GOOD APPETITE. NO ACUTE DISTRESS, HOURLY ROUNDING AND FALL PRECAUTIONS CONTINUE.
[2018-12-27 19:51] VITALS: BP 92/51
[2018-12-28 04:25] LABS: HEMATOCRIT 25.7 % (37.0-47.0); HEMOGLOBIN 8.3 gm/dL (12.0-15.0); MCH 26.4 pg (26.0-34.0); MCHC 32.3 g/dL (28.0-37.0); MCV 81.8 fL (80.0-100.0); MPV 8.5 fl. (7.2-11.1); RBC 3.15 mil/uL (4.20-5.00); RDW-CV 21.8 % (10.5-14.5); WBC 9.2 thou/uL (4.0-11.0)
[2018-12-28 05:02] LABS: ALBUMIN 3.1 g/dL (3.4-5.0); CALCIUM 8.7 mg/dL (8.5-10.1); CREATININE 1.1 mg/dL (0.6-1.3); MAGNESIUM 2.6 mg/dL (1.8-2.4); POTASSIUM 4.4 mmol/L (3.5-5.1); TOTAL BILIRUBIN 0.4 mg/dL (<0.1-1.0); TOTAL PROTEIN 6.1 g/dL (6.4-8.2)
--- NOTE | 2018-12-28 07:16 | NUR ---
ASSUMED CARE @ 1921-12/27-FRIDAY.AWAKE IN BED VISITING W/ONE SON & 4 DAUGHTERS. WANTS BATHROOM LIGHT ON ALL NIGHT.REFUSED HS DOSE COLACE & LOVENOX.WEARS PULL UPS.CHANGED ONCE. K PAD ON RECLINER FOR USE WHEN PT SITS ON RECLINER SOMETIMES AFTER BRP.DAUGHTER GOLDY STAYING ALL NIGHT.SLEPT EARLY @ 2024.TOOK VANILLA PUDDING X2 DURING NIGHT.PRN FLEXERIL 5 MG ORAL GIVEN @ 0323.DAUGHTER REQUESTED VOLTAREN CREAM @ 0444 & APPLIED TO LOWER BACK.BRP W/ SBA X14 DURING NIGHT.BUT IN BETWEEN SLEPT X 1 HOUR X2.SLEPT FOR ONE HOUR & 10 MINUTES X 1.SLEPT FOR ONE HOUR & 30 MINUTES X 1.
[2018-12-28 07:45] VITALS: BP 98/48
--- NOTE | 2018-12-28 17:43 | NUR ---
ASSUMMED CARE OF PT AT 0730, PT ALERT AND ORIENTED, TRANSFERS WITH SBA, GB WALKER, PT AMBULATES TO BATHROOM, VOIDS FREQUENTLY, NO STOOL THIS SHIFT, PT COMPLAINS OF BACK PAIN, MEDICATED WITH FLEXIRIL EVERY 6 HOURS, LIDOCAINE PATCH, USES HEATING PAD, PT HAD BLOODY NOSE X1 THIS AM, LARGE SOFT BM X 1 THIS SHIFT, PT PARTICIPATED IN ALL THERAPIES, PT HAS HAD MANY VISITORS THIS SHIFT, HOURLY ROUNDING COMPLETED, ASSESSMENT COMPLETE, WILL CONTINUE TO MONITOR.
[2018-12-28 20:00] VITALS: BP 92/52
--- NOTE | 2018-12-28 23:45 | NUR ---
ASSUMED CARE AT 1930. PATIENT WENT FROM RECLINER TO TOILET TO BED. PATIENT UP WITH SBA, GAIT BELT, WALKER. NEEDS ENCOURAGEMENT TO GET TO SITTING POSITION BY HERSELF, BUT CAN DO SO. HAD VERY LARGE SOFT LIGHT BROWN STOOL PER TOILET AT 221. DECLINED HS COLACE. DOES OWN HYGIENE AND CAN DO CLOTHING ADJUSTMENTS. C/O BACK PAIN, MOVES SLOWLY, BUT COMPLETES TASKS. TAKES PILLS ONE AT A TIME WITH WATER. DAUGHTER SPENDING THE NIGHT. PATIENT LIES ON HER SIDE THROUGH THE NIGHT. HAS VOIDED SEVEN TIMES THUS FAR THIS SHIFT. MEDICATED WITH FLEXARIL FOR BACK PAIN. HAD ONE NOSE BLEED AROUND 2100, SCANT AMOUNT SEEPAGE NOTED. GIVEN COLD WASHCLOTH FOR COMFORT. HOURLY ROUNDS CONTINUE. REFUSES BED ALARM. CALL LITE IN REACH.
[2018-12-29 04:31] LABS: HEMATOCRIT 27.4 % (37.0-47.0); HEMOGLOBIN 8.8 gm/dL (12.0-15.0); MCH 26.6 pg (26.0-34.0); MCHC 32.1 g/dL (28.0-37.0); MCV 82.8 fL (80.0-100.0); MPV 8.1 fl. (7.2-11.1); RBC 3.3 mil/uL (4.20-5.00); RDW-CV 21.3 % (10.5-14.5); WBC 9.8 thou/uL (4.0-11.0)
[2018-12-29 05:01] LABS: ALBUMIN 3.3 g/dL (3.4-5.0); CALCIUM 8.5 mg/dL (8.5-10.1); CREATININE 1.1 mg/dL (0.6-1.3); MAGNESIUM 2.6 mg/dL (1.8-2.4); POTASSIUM 4.6 mmol/L (3.5-5.1); TOTAL BILIRUBIN 0.4 mg/dL (<0.1-1.0); TOTAL PROTEIN 6.4 g/dL (6.4-8.2)
--- NOTE | 2018-12-29 05:36 | NUR ---
UP TO VOID 12 TIMES THUS FAR THIS SHIFT. SEE TOILETING INTERVENTION. TRYING TO SLEEP BETWEEN VOIDS. PREFERS TO LIE ON LT SIDE. NEEDING MORE LIFTING ASSIST SHIFT PROGRESSES, STATES HAS PAIN IN BACK SHE IS RISING. ONCE STANDING CAN AMBULATE WITH WALKER, BUT NEEDS ASSIST IN STEERING WALKER, WHICH SHE STATES IS BECAUSE OF THE PAIN SHE CANNOT STEER IT WELL. DOES OWN HYGIENE, ADJUSTING PULLUP. HAD ANOTHER HUGE SOFT BM PER TOILET AT 0046 AND ANOTHER SMALL ONE AT 0500. STATES THAT HER ABD FEELS MUCH BETTER. BLOOD AMMONIA LEVEL 21 (WNL). HOURLY ROUNDS CONTINUE. REFUSES BED ALARM BUT IS COMPLIANT WITH USING CALL LITE. CALL LITE IN REACH.
[2018-12-29 08:00] VITALS: BP 93/52
--- NOTE | 2018-12-29 16:13 | NUR ---
pt has participated with therapies and calls for assist as needs. pt has had increased back pain with pain medication given with fair effect. pt calls for assist to bathroom with min assist and walker.pt remains continent of b+b.pt eats meals in dinningroom. daughters here. pt remains alert and orientated.hourly rounding continues.
--- NOTE | 2018-12-29 16:48 | NUR ---
SW met with pt and pt and one of pt dtrs in preparation for team conference and they did not have any questions at this time just concern for pt back pain to improve. Pt dtr feels that pt back pain may be slowing down pt recovery time. Pt other dtr wanted to speak with SW about insurance etc and SW provided SW number to dtr to provide to other dtr. SW to continue to follow to assist with safe dc planning.
[2018-12-29 20:00] VITALS: BP 89/46
--- NOTE | 2018-12-30 04:59 | NUR ---
ASSUMED PT CARE AT 1930. PT SLEEPING AT SHIFT CHANGE, AWAKENED FOR ASSESSMENT THEN ALERT AND ORIENTED X4, P0LITE AND COOPERATIVE WITH CARES. PT UP WITH SBA, GAIT BELT AND WALKER TO BATHROOM TO VOID. PT SLEPT WELL AND FOR LONGER PERIODS IN BETWEEN TRIPS TO THE BATHROOM. TRAMADOL ONCE THIS SHIFT FOR BACK PAIN. PT HAD ONE SMALL NOSEBLEED AT 2330. COLD WASHCLOTH GIVEN FOR COMFORT. PT HAD LARGE DIARRHEA VOID AT 0430. PT REFUSES BED ALARM BUT USES CALL LIGHT APPROPRIATELY. DAUGHTER AT BEDSIDE OVERNIGHT. CALL LIGHT AND FREQUENTLY USED ITEMS WITHIN REACH. HOURLY ROUNDING IN PROGRESS, WILL CONTINUE TO MONITOR.
[2018-12-30 09:49] VITALS: BP 105/48
--- NOTE | 2018-12-30 13:06 | NUR ---
pt having loose water stools now and c/o nausea with dry heaving.pt did refuse lunch but does drink fluids well. at bedside. pt ambulates to bathroom with walker and min assist and is able to adjust clothing and cleanse self. prn for pain given and po zofran to be given when pharmacy has entered.
--- NOTE | 2018-12-30 14:03 | NUR ---
SW met with pt and pt to review team conference summary and plan for pt to remain on rehab unit with plan for team to reassess pt length of stay during team conference next Saturday 01/06. Pt and pt in agreement with plan. Possibility to know dc date during next team conference. SW to continue to follow to assist with safe dc planning.
--- NOTE | 2018-12-30 18:23 | NUR ---
PT HAS HAD EPISODE OF SMALL EMISIS WITH NAUSEA THIS EVENING. ZOFRAN GIVEN EARLIER WITH FAIR EFFECT.PT TO BE NPO IN AM FOR ULTRASOUND. PT CONTINUES TO GO TO BATHROOM TO VOID AND HAS HAD SEVERAL LIQUID BM'S TODAY. PT ATE SOME BREAKFAST BUT HAS REFUSED LUNCH AND SUPPER. PT FAMILY AT SIDE AND ARE HELPFULL. PT CONTINENT OF B+B AND AMBULATES WITH MIN ASSIST OF 1. PT REMAINS ALERT AND ORIENTATED. HOURLY ROUNDING CONTINUES.
[2018-12-30 20:00] VITALS: BP 103/62
--- NOTE | 2018-12-30 23:50 | NUR ---
ASSUMED CARE AT 1930. PATIENT RESTING IN BED UNLESS NEEDING TO ELIMINATE. UP TO TOILET TWICE. SECOND TIME HAD VERY LARGE LIQUID STOOL THAT WAS CONTAINED IN PULLUP. SKIN CARE DONE, MOISTURE BARRIER APPLIED. PATIENT BECOMING WEAKER AND HAVING MUCH PAIN WITH TRANSFERS. ONCE LYING BACK IN BED MUCH MORE COMFORTABLE. DUE TO WEAKNESS AND PAIN, WILL USE BSC THROUGH THE NIGHT FOR VOIDING AND BMS. DAUGHTER GOLDY VERY INVOLVED IN PATIENT'S CARE. NPO AFTER MIDNIGHT. DENIES NAUSEA. ABD VERY DISTENDED, ASCITES NOTED. DRINKING WATER WITHOUT DIFF. HOURLY ROUNDS CONTINUE. DAUGHTER AT BEDSIDE, REQUEST NO BED ALARM. CALL LITE IN REACH.
[2018-12-31 04:25] LABS: ALBUMIN 3.5 g/dL (3.4-5.0); CALCIUM 8.5 mg/dL (8.5-10.1); CREATININE 1.1 mg/dL (0.6-1.3); POTASSIUM 4.7 mmol/L (3.5-5.1); TOTAL BILIRUBIN 0.6 mg/dL (<0.1-1.0); TOTAL PROTEIN 6.9 g/dL (6.4-8.2)
--- NOTE | 2018-12-31 04:52 | NUR ---
SLEPT OFF AND ON BETWEEN VOIDINGS. USED BSC MOST OF THE NIGHT. HAD ONE LIQUID STOOL WITH PARTIALLY DIGESTED FOODS. MEDICATED ONCE FOR PAIN. OVERALL HAS VOIDED LESS FREQUENTLY THIS SHIFT COMPARED TO THE SLURRY MIXER OF 12/28-. PATIENT HAS BEEN REQUESTING MOVING HER FORWARDS TO THE EDGE OF THE BED USING THE DRAWSHEET INSTEAD OF HER MOVING HERSELF. SOMETIMES WANTS HELP GOING FROM LYING TO SITTING, OTHER TIMES NOT. ABLE TO RISE FROM SITTING TO STANDING. GETS BACK INTO BED WITHOUT DIFF. PREFERS TO LIE ON LEFT SIDE. DAUGHTER HERE BUT HAS NOT ASSISTED PATIENT MUCH THIS PM. HOURLY ROUNDS CONTINUE. CALL LITE IN REACH.
--- NOTE | 2018-12-31 07:34 | NUR ---
CALL PLACED TO [facility] TO ASK IF THE ULTRASOUND COULD BE DONE SOON POSSIBLE PER DR. DARBY'S REQUEST. SHE STATED THAT [facility] IS NOT THERE NOW, BUT SHE WILL LEAVE A MESSAGE TO HAVE THEM CALL REHAB WHEN THEY GET THERE.
[2018-12-31 08:00] VITALS: BP 99/58
--- NOTE | 2018-12-31 09:37 | NUR ---
AM ASSESSMENT AND VITAL SIGNS COMPLETED DOCUMENTED. PT WAS INCONTINENT OF LIQUID STOOL AND URINE, SPECIMEN SENT TO THE LAB FOR OCCULT BLOOD. PT CONTINUES TO BE VERY WEAK THIS AM AND IS REQUESTING MORE ASSISTANCE WITH BED MOBILITY AND TOILETING. PT ENCOURAGED TO BE INDEPENDENT WITH ACTIVITIES WHEN ABLE. FALL PRECAUTIONS AND HOURLY ROUNDING IN PLACE.
[2018-12-31 10:38] LABS: HEMATOCRIT 38.5 % (37.0-47.0); MCH 25.6 pg (26.0-34.0); MCHC 30.8 g/dL (28.0-37.0); MCV 83.2 fL (80.0-100.0); MPV 8.5 fl. (7.2-11.1); RBC 4.62 mil/uL (4.20-5.00); RDW-CV 21.6 % (10.5-14.5); WBC 26.6 thou/uL (4.0-11.0)
[2018-12-31 10:43] LABS: HEMOGLOBIN 11.8 gm/dL (12.0-15.0)
[2018-12-31 12:18] LABS: HEMATOCRIT 31.7 % (37.0-47.0); HEMOGLOBIN 10.1 gm/dL (12.0-15.0); MCH 25.9 pg (26.0-34.0); MCHC 31.9 g/dL (28.0-37.0); MCV 81.2 fL (80.0-100.0); MPV 8.1 fl. (7.2-11.1); RBC 3.9 mil/uL (4.20-5.00); RDW-CV 20.9 % (10.5-14.5); WBC 17.4 thou/uL (4.0-11.0)
--- NOTE | 2018-12-31 18:07 | NUR ---
OCCULT BLOOD WAS POSITIVE. PT WILL BE NPO AFTER MN FOR POSSIBLE SCOPE TOMMORROW. NS AT 100CC/HR TO INFUSE OVERNIGHT X 1 LITER. PT DID PARTICIPATE WITH ALL THERAPIES AND TOLERATED FAIRLY WELL TODAY. NO ACUTE DISTRESS AT THIS TIME.
[2018-12-31 20:00] VITALS: BP 90/36
[2019-01-01 03:57] LABS: HEMATOCRIT 28.6 % (37.0-47.0); HEMOGLOBIN 9.3 gm/dL (12.0-15.0); MCH 26.2 pg (26.0-34.0); MCHC 32.6 g/dL (28.0-37.0); MCV 80.3 fL (80.0-100.0); MPV 8.5 fl. (7.2-11.1); RBC 3.56 mil/uL (4.20-5.00); RDW-CV 21.3 % (10.5-14.5); WBC 12.8 thou/uL (4.0-11.0)
[2019-01-01 04:02] LABS: CALCIUM 8.1 mg/dL (8.5-10.1); MAGNESIUM 3.1 mg/dL (1.8-2.4); POTASSIUM 4.2 mmol/L (3.5-5.1)
--- NOTE | 2019-01-01 05:23 | NUR ---
ASSUMED CARES AT 1920. ALERT AND ORIENTED. DAUGHTER STAYED OVERNIGHT. C/O PAIN TO RIGHT HIP. FLEXERIL GIVEN WITH LITTLE RELIEF. REFUSED TRAMADOL. NPO AFTER MIDNITE. IV LEFT FOREARM WITH NS RUNNING AT 100 CC/HR. MIN ASSIST WITH GAIT BELT AND WALKER. VERY WEAK. UP TO BSC. WAS UP NUMEROUS TIMES TO TOILET. HAD MULTIPLE STOOLS THAT WERE LIQUID TO WATERY. NO BLOODY STOOLS NOTED. SLEPT LITTLE BECAUSE OF THIS. CALL LIGHT IN REACH.
--- NOTE | 2019-01-01 07:03 | NUR ---
AT 0703-STILL SLEEPING SOUNDLY.DID NOT EVEN WAKE UP WHEN COMPLETE BED CHANGE DONE @ 0630.NO SLEEP APNEA WHEN SLEEPING SOUNDLY.SLEEP APNEA NOTED ONLY WITH RESTLESS SLEEP.
[2019-01-01 08:00] VITALS: BP 91/46
--- NOTE | 2019-01-01 09:23 | NUR ---
AM ASSESSMENT AND VITAL SIGNS COMPLETED DOCUMENTED. PT WILL BE HAVING AN EGD THIS AM AND IS GOING TO BE DISCHARGED TO ROOM 315. FAMILY AND PT AWARE OF PLAN OF CARE.
--- NOTE | 2019-01-01 10:42 | NUR ---
AM ASSESSMENT AND VITAL SIGNS COMPLETED DOCUMENTED. PT HAS BEEN TAKEN TO PACU FOR EGD, THERAPIES ARE ON HOLD PENDING RESULTS.
[2019-01-01 10:59] VITALS: BP 95/41
--- NOTE | 2019-01-01 14:21 | NUR ---
PT RETURNED TO ROOM AT 1300 IN STABLE CONDITION. PT STARTED ON A CLEAR LIQUID DIET, TOLERATED WELL. THERAPIES HAVE RESUMED FOR THE AFTERNOON. PT WILL START A BOWEL PREP AFTER THE LAST THERAPY SESSION, COLONOSCOPY SCHEDULED FOR FRIDAY.
--- NOTE | 2019-01-01 17:55 | NUR ---
PT IS DOING WELL WITH THE BOWEL PREP. BOWEL MOVEMENTS ARE A LIGHT YELLOW LIQUID AND SHE HAS DRANK APPROX 2000CC. FAMILY IS HERE VISITING. NO ACUTE DISTRESS.
[2019-01-01 20:00] VITALS: BP 98/54
[2019-01-02 04:25] LABS: HEMOGLOBIN 8.5 gm/dL (12.0-15.0); MCH 26.7 pg (26.0-34.0); MCHC 32.7 g/dL (28.0-37.0); MCV 81.7 fL (80.0-100.0); MPV 8.4 fl. (7.2-11.1); RBC 3.18 mil/uL (4.20-5.00); RDW-CV 21.2 % (10.5-14.5); WBC 6.9 thou/uL (4.0-11.0)
[2019-01-02 04:56] LABS: CALCIUM 8.1 mg/dL (8.5-10.1); CREATININE 0.8 mg/dL (0.6-1.3); MAGNESIUM 2.8 mg/dL (1.8-2.4); POTASSIUM 3.3 mmol/L (3.5-5.1)
--- NOTE | 2019-01-02 05:49 | NUR ---
ASSUMED CARE AT 1920. ALERT AND ORIENTED. PLEASANT. NOT WEAK TODAY YESTERDAY. MOVING BETTER. STILL HAS PAIN TO BACK/RIGHT HIP. FLEXERIL GIVEN. DRANK LITTLE OVER 3 LITER OF GOLYTELY BEFORE MIDNIGHT. NPO AFTER MIDNIGHT. PT HAS HAD NUMEROUS YELLOW/LIGHT BROWN CLEAR WATERY STOOLS. UP TO BSC. MIN ASSIST WITH GAIT BELT AND WALKER. DAUGHTER AT BEDSIDE. WILL CONTINUE TO MONITOR.
[2019-01-02 08:30] VITALS: BP 98/47
--- NOTE | 2019-01-02 09:16 | NUR ---
pt to pacu per w/c and is alert and orientated. pt continues to have liquid clear stools small amounts.pt denies pain but is thursty and feels hungry. pt remains npo and is given oral swabs to moisten mouth. iv is sl'd. daughter has been here.
[2019-01-02 09:20] VITALS: BP 98/54
--- NOTE | 2019-01-02 12:06 | NUR ---
PT HAS RETURNED FROM COLONOSCOPY AND IS ALERT AND ORIENTATED.PT DRINKING WATER AND DENIES NAUSEA OR PAIN.PT VOIDING WELL.IV FLUIDS INFUSING TO LT FA PER PUMP.PT STARTING TO EAT LUNCH NOW.DAUGHTER AT BEDSIDE.
[2019-01-02] MEDS ORDERED: LIDOPATCH1 EACH TOP (12:57)
[2019-01-02] MEDS ORDERED: HYDREA500 MG PO (12:57)
[2019-01-02] MEDS ORDERED: TRAMADOL 50 MG50 MG PO (12:57)
[2019-01-02] MEDS ORDERED: VITAMIN D1000 UNI1 PO (12:57)
[2019-01-02] MEDS ORDERED: THERA M PLUS T1 EAC2 PO (12:57)
--- NOTE | 2019-01-02 17:41 | NUR ---
pt remains alert and orientated and has slept some this afternoon. pt voiding well,min assist to bsc. iv fluids infusing well to lt fa.per pump.pt ambulates with min assist to ed and recliner.pt in good spirits and reports feeling better.
[2019-01-02 20:00] VITALS: BP 90/43
[2019-01-03 04:58] LABS: HEMATOCRIT 22.6 % (37.0-47.0); HEMOGLOBIN 7.3 gm/dL (12.0-15.0); MCH 26.9 pg (26.0-34.0); MCHC 32.3 g/dL (28.0-37.0); MCV 83.2 fL (80.0-100.0); MPV 8.2 fl. (7.2-11.1); RBC 2.72 mil/uL (4.20-5.00); RDW-CV 21.9 % (10.5-14.5); WBC 4.2 thou/uL (4.0-11.0)
--- NOTE | 2019-01-03 05:04 | NUR ---
ASSUMED PT CARE AT 1930. PT ALERT AND ORIENTED X4, ALREADY IN BED AT SHIFT CHANGE. PT IN BETTER MOOD THAN SEEN PREVIOUSLY. UP WITH SBA, GAIT BELT AND WALKER TO BSC THREE TIMES OVERNIGHT TO VOID. NO NAUSEA. FLEXERIL ONCE FOR BACK PAIN. NO STOOL THIS SHIFT. IVF INFUSING TO LEFT FOREARM WITHOUT DIFFICULTY. DAUGHTER AT BEDSIDE OVERNIGHT. CALL LIGHT AND FREQUENTLY USED ITEMS WITHIN REACH, HOURLY ROUNDING IN PROGRESS, WILL CONTINUE TO MONITOR.
[2019-01-03 05:37] LABS: CALCIUM 7.7 mg/dL (8.5-10.1); CREATININE 0.8 mg/dL (0.6-1.3); MAGNESIUM 2.5 mg/dL (1.8-2.4); POTASSIUM 3.5 mmol/L (3.5-5.1)
[2019-01-03 07:15] VITALS: BP 102/46
--- NOTE | 2019-01-03 16:46 | NUR ---
ASSUMMED CARE OF PT AT 0730, PT ALERT, TRANSFERS WITH MIN ASSIST GB WALKER, PT TAKING FOOD AND FLUIDS WELL, IV CHANGED TO SALINE LOCK, PT COMPLAINS OF BACK/HIP PAIN, REFUSED LIDOCAINE PATCHES, MEDICATED WITH FLEXIRIL X 1, WHEN ASKED IF ANY RELIEF OBTAINED PT STATES SHE DOES NOT KNOW, HEATING PAD TO BACK, FAMILY MASSAGES RIGHT HIP AND BACK, PT REFUSED BATH THIS SHIFT, DID DO GROOMING AND CHANGED PANTS BUT KEPT ON SAME SHIRT, MANY VISIOTRS HERE THRU OUT SHIFT, PT UP IN CHAIR AT INTERVALS THRUOUT DAY, HOURLY ROUNDING COMPLETED, ASSESSMENT COMPLETE WILL CONTINUE TO MONITOR.
[2019-01-03 19:27] VITALS: BP 99/41
--- NOTE | 2019-01-03 20:10 | NUR ---
SITTING UP IN CHAIR. FAMILY ASSISTING PATIENT WITH GETTING HER TEETH BRUSHED. NO COMPLAINTS VOICED. SEVERAL VISITORS PRESENT.
[2019-01-04 04:23] LABS: HEMATOCRIT 23.8 % (37.0-47.0); HEMOGLOBIN 7.7 gm/dL (12.0-15.0); MCH 26.7 pg (26.0-34.0); MCHC 32.3 g/dL (28.0-37.0); MCV 82.4 fL (80.0-100.0); MPV 8.2 fl. (7.2-11.1); RBC 2.89 mil/uL (4.20-5.00); RDW-CV 21.5 % (10.5-14.5); WBC 4.3 thou/uL (4.0-11.0)
[2019-01-04 04:37] LABS: POTASSIUM 3.9 mmol/L (3.5-5.1)
--- NOTE | 2019-01-04 04:54 | NUR ---
RESTED IN SHORT INTERVAL. HAD DIFFICULTY WITH BACK PAIN. PATIENT GOT UP AND WALKED AROUND SOME DURING THE NIGHT. DID GET SOME PAIN RELIEF AFTER TAKING TRAMADOL. PATIENT WAS ABLE TO SLEEP BETTER SITTING UP IN A CHAIR. DAUGHTER STAYED WITH PATIENT DURING THE NIGHT. HOURLY ROUNDING IN PROGRESS.
[2019-01-04 08:00] VITALS: BP 94/55
--- NOTE | 2019-01-04 09:24 | NUR ---
AM ASSESSMENT AND VITAL SIGNS COMPLETED DOCUMENTED. PT STATES SHE SLEPT WELL AFTER 4AM BUT DOESN'T WANT TO TAKE ANY MORE TRAMADOL BECAUSE IT DECREASES HER APPETITE. PT REQUIRES HELP GETTING TO THE EDGE OF THE BED AND SHE IS ABLE TO SIT UP WITHOUT HELP AFTER THAT. PT AMBULATES TO THE BATHROOM USING A FFW. FALL PRECAUTIONS AND HOURLY ROUNDING CONTINUE.
[2019-01-04 20:00] VITALS: BP 95/52
--- NOTE | 2019-01-05 05:23 | NUR ---
ASSUMED PT CARE AT 1930. PT ALERT AND ORIENTED X4, MANY FAMILY MEMBERS IN ROOM AT SHIFT CHANGE. PT WALKING IN HALLS WITH DAUGHTERS AND BEFORE BEDTIME. PT C/O BACK PAIN BUT DID NOT WANT TRAMADOL OR TYLENOL, JUST FLEXERIL. PT HAD NOSEBLEED X1. PT UP TO BATHROOM TO VOID NUMEROUS TIMES OVERNIGHT, STOOL X1 THIS SHIFT. DAUGHTER AT BEDSIDE OVERNIGHT. PT QUITE EXACTING WITH CARES AND DEMANDING OF DAUGHTER. USES CALL LIGHT APPROPRIATELY. CALL LIGHT AND FREQUENTLY USED ITEMS WITHIN REACH. HOURLY ROUNDING IN PROGRESS, WILL CONTINUE TO MONITOR.
[2019-01-05 08:00] VITALS: BP 91/29
--- NOTE | 2019-01-05 13:07 | PATH ---
[address] [address] PATHOLOGY RPT PROCEDURE Name: TAMEKA TOTH Room: M.320-D [facility] IN M.R.#: [id number] Admission: 12/22/18 Date of : 38 Discharge: Report #: [id number] Path Case #: [id number] [facility] Accession Number: [id number] . 01 Material submitted: . rectum - BIOPSY, RECTAL ULCER . 01 Clinical history: . None provided . . 02 Diagnosis: Biopsy rectal ulcer: - Benign colonic mucosa with evidence of non-specific ulceration, negative for granulomas, viral inclusions and dysplasia. See comment. LBQ/01/05/2019 . 02 Comment: The biopsy reveals a fragment of benign colonic mucosa having an abrupt transition to granulation tissue/ulcer bed, without significant basal lymphoplasmacytosis or crypt distortion to raise a concern for inflammatory bowel disease. Ischemic features are also not apparent. (BHARTI/db; 01/05/2019) . 02 Electronically signed: . Judson Tejada MD, Pathologist NPI- [id number] . 01 Gross description: . Received in formalin labeled "Tameka Toth, biopsy rectal ulcer," are two segments of pale linn soft tissue measuring 0.2 x 0.1 x 0.1 cm and 0.3 x 0.3 x 0.3 cm in greatest dimensions. The specimen is submitted entirely in cassette A1. The smaller segment may not survive processing. (DAC; 01/04/2019) XDC/XDC . 02 Pathologist provided ICD-10: K62.6 . 02 CPT . 792237 Specimen Comment: A courtesy copy of this report has been sent to Specimen Comment: [phone], . Specimen Comment: Report sent to / DR SO Performed at: [address], [place], [place] [id number] MD Hair Richter MD Phone: [phone] [place] [address] PATHOLOGY RPT PROCEDURE Name: JONNIE TOTHMAGALI Long Room: [address] IN [facility].#: [id number] Admission: 12/22/18 Date of : 38 Discharge: Report #: [id number] Path Case #: [id number] Performed at: [address] [facility] [address] [place] [id number] MD Judson Tejada MD Phone: [phone]
--- NOTE | 2019-01-05 15:28 | NUR ---
KIERRA met with pt dtr and pt in preparation for team conference tomorrow. Pt dtr concerned about financial/billing for acute stay and SW suggested pt discuss with billing office. Pt dtr only main concern is pt bed mobility. KIERRA also discussed HH follow up services and called and left Brittany at [facility] a message as pt dtr also wanted to know about pt qualifying for Medicaid as a secondary insurance. Pt and pt dtr expecting pt to be ready to dc sometime soon and discussed toilet riser/commode and preparing for safe dc home with family; pt dtr Tameka plans to stay with pt every night at least initially at dc.
--- NOTE | 2019-01-05 16:18 | NUR ---
PT CARE ASSUMED THIS AM, ASSESSMENT AND VITAL SIGNS COMPLETED DOCUMENTED. PT HAS PARTICIPATED IN ALL SCHEDULED THERAPIES, FAIR TOLERANCE BUT MINIMAL PROGRESS BEING MADE. PT HAS INCREASED PAIN AND DIFFICULTY FROM LYING OR SITTING TO STANDING. SCHEDULED FLEXARIL GIVEN AND HEATING PAD IN USE WHILE AT REST. NO ACUTE DISTRESS, FALL PRECAUTIONS AND HOURLY ROUNDING CONTINUE.
[2019-01-05 19:44] VITALS: BP 94/46
--- NOTE | 2019-01-06 01:22 | NUR ---
ASSUMED CARE @ 1945-01/05-.SITS IN RECLINER VISITING W/ 4 DAUGHTERS,A SON & .AMBULATED IN HALLWAY W/ GB & WALKER W/ SBA @ 2004.FAMILY WALKING W/ PATIENT ALSO.K PAD NOT IN USE.DAUGHTER GOLDY STAYING ALL NIGHT.PRN VOLTAREN OINT.APPLIED BY DAUGHTER TO PATIENT'S BACK @ 2113.WEARS PULL UPS.AT - FRI-PATIENT WANTS DAUGHTER TO MASSAGE BACK.ON HOURLY ROUNDS.EXECUTIVE DIRECTOR OF NURSING DOING ODD HOUR ROUNDS.
[2019-01-06 04:59] LABS: HEMATOCRIT 23.4 % (37.0-47.0); HEMOGLOBIN 7.4 gm/dL (12.0-15.0); MCH 26.3 pg (26.0-34.0); MCHC 31.7 g/dL (28.0-37.0); MPV 10.1 fl. (7.2-11.1); RBC 2.82 mil/uL (4.20-5.00); RDW-CV 22.3 % (10.5-14.5)
--- NOTE | 2019-01-06 05:50 | NUR ---
SLEPT LATE SINCE 000O-01/06-FRI.AWAKE @ INTERVALS FOR TOILETING W/ SBA X 8. CALLS SEVERAL TIMES TO ASSIST IN TURNING OR TO SIT IN RECLINER.DAUGHTER STAYING ALL NIGHT.REFUSED HS SNACK.
[2019-01-06 09:35] VITALS: BP 99/47
--- NOTE | 2019-01-06 13:39 | NUR ---
SW met with pt, pt dtr, pt , and talked with pt dtr on speaker phone to review team conference summary and plan for family training on and for pt to dc home on Monday 01/08 with family support and HH services. SW discussed HH agency options and preference for [facility]. SW faxed initial referral info and final orders and med list to be faxed by dc date. Pt has needed DME. Pt and pt family in agreement with plan. SW to continue to follow to assist with finalizing safe dc plan.
--- NOTE | 2019-01-06 18:24 | NUR ---
PT HAS PARTICIPATED WITH THERAPIES AND CALLS FOR ASSIST NEEDS. PT HAS C/O BACK PAIN AND REFUSES PAIN MEDICATION. LIDOCAIN PATCH APPLIED EARLIER AND VOLTARIN CREAM APPLIED THIS AFTERNOON. PT IS ALERT AND [id number] BUT IS NEEDY AND WILL REQUEST SIMPLE TASKS OF NURSING AND FAMILY THAT SHE CAN DO FOR HERSELF.PT REMAINS CONTINENT OF B+B VOIDING CLEAR YELLOW URINS AND HAVING MODERATS BROWN SOFT FORMED STOOLS. PT HAS EATEN MEALS IN DINNINGROOM TODAY.PT PLANNING TO GO HOME FRIDAY AFTER FAMILY TEACHING. HOURLY ROUNDING CONTINUES.
[2019-01-06 22:14] VITALS: BP 93/41
--- NOTE | 2019-01-07 01:25 | NUR ---
ASSUMED CARE @ 1935-.SITS IN RECLINER W/ K PAD ON BACK.ALL NINE CHILDREN IN ROOM TO CELEBRATE FATHER'S BIRTHDAY TODAY.PRN MELATONIN 5 MG ORAL GIVEN @ 2026 PER PT'S REQUEST.REPEAT DOSE 5 MG GIVEN @ 2205.AMBULATED IN HALLWAY @ 2243 W/ GB/WALKER W/ SBA X 5 MINUTES.AMBULATED 2ND TIME IN HALLWAY @ 2344 X 10- MINUTES.SAT IN RECLINER @ 0040 X 30 MINUTES TAKING ICE CHIPS.WEARS PULL UPS.DAUGHTER GOLDY STAYING ALL NIGHT.K PAd ALSO APPLIED TO BACK WHILE IN BED.FAVORS LYING ON HER LEFT SIDE.ON HOURLY ROUNDS.
--- NOTE | 2019-01-07 05:26 | NUR ---
REFUSED HS SNACK.SLEPT LATE @ 2300 & AWAKE @ INTERVALS DURING NIGHT FOR BRP W/ SBA X9.K PAD ON BACK WHILE IN RECLINER OR IN BED.SLEPT 3X ONLY FROM 2300 TO 2340-40 MINUTES.SLEPT FROM 0400 TO 0425-25 MINUTES ONLY & FROM 0445.SITS IN RECLINER @ INTERVALS ALSO.DAUGHTER GOLDY LEFT @ 0500 TO GO TO WORK.
[2019-01-07 07:22] VITALS: BP 108/62
--- NOTE | 2019-01-07 07:23 | NUR ---
SLEPT 3RD TIME FOR ONE HOUR-FROM 9805 TO 0545.UP TO RECLINER @ 0700.
[2019-01-07 15:09] VITALS: BP 108/62
--- NOTE | 2019-01-07 17:56 | NUR ---
PT HAS PARTICIPATED WITH THERAPIES AND CALLS FOR ASSIST NEEDS. PT IS CONTINENT OF B+B. UA SENT TO LAB THIS EVENING AND DOES APPEAR TO BE BLOODY.PT REPORTS BACK PAIN NOT SEVERE YESTERDAY BUT REFUSES PAIN MEDICATIONS, CONTINUES TO TAKE MUSCLE RELAXER.PT EATS MEALS IN DINNINGROOM AND HAS GOOD APPETITE.PT REMAINS ALERT AND ORIENTATED.FAMILY HAS PARTICIPATED IN TEACHING TODAY.
[2019-01-07 17:57] LABS: URINE BILIRUBIN NEGATIVE (Negative); URINE BLOOD 3+ (Negative); URINE CLARITY CLOUDY; URINE COLOR BROWN; URINE GLUCOSE-RANDOM NEGATIVE (Negative); URINE KETONES TRACE (Negative); URINE LEUKOCYTES-REFLEX TRACE (Negative); URINE NITRITE-REFLEX NEGATIVE (Negative); URINE PROTEIN 2+ (Negative); URINE SPECIFIC GRAVITY 1.025 (1.005-1.030); URINE UROBILINOGEN 0.2 E.U./dl (0.2-1.0)
[2019-01-07 18:15] LABS: URINE RBC >20 Many /HPF (0-2)
[2019-01-07 18:16] LABS: YEAST-REFLEX Present (None Seen)
[2019-01-07 18:17] LABS: CRYSTALS None Seen /LPF (None Seen); MUCUS None Seen strn/LPF (None Seen); SQUAMOUS 0-3 Few /LPF (0-3)
[2019-01-07 18:18] LABS: BACTERIA-REFLEX 1-9 Few /HPF (None Seen); CASTS None Seen /LPF (None Seen)
[2019-01-07 18:19] LABS: URINE WBC-REFLEX None Seen /HPF (0-5)
--- NOTE | 2019-01-07 18:40 | NUR ---
ua results shown to who requests medical be notified. call out to to notify of results.
[2019-01-07 19:55] VITALS: BP 93/48
--- NOTE | 2019-01-07 21:25 | NUR ---
SITTING UP IN RECLINER WITH MULTIPLE PILLOWS BEHIND HER BACK. MULTIPLE FAMILY MEMBERS IN ROOM VISITING. PATIENT IN GOOD SPIRITS. WANTS SOMETHING TO HELP HER SLEEP BUT MELATONIN WAS INEFFECTIVE LAST NIGHT AND NOT SURE ABOUT TAKING AMBIEN. DAUGHTER ASKING QUESTIONS ABOUT PATIENT'S MEDICATIONS. WANTING TO KNOW ABOUT MIDODRINE AND IF PATIENT IS STILL ON LASIX. DAUGHTER ALSO WANTING TO KNOW ABOUT URINE ANALYSIS RESULTS. EXPLAINED THAT DOCTOR WOULD TALK TO HER ABOUT IT TOMORROW.
[2019-01-08] MEDS ORDERED: CYCLOBENZAPRINE5 MG PO (00:22)
--- NOTE | 2019-01-08 04:29 | NUR ---
UP MULTIPLE TIMES TO THE BATHROOM DURING THE NIGHT TO VOID. PATIENT ASKED FOR MORE FLEXERIL DURING THE NIGHT FOR COMPLAINT OF BACK PAIN. OFFER OF PRN TRAMADOL DECLINED. PATIENT'S SAID SHE WAS HAPPY THAT SHE DIDN'T HAVE BLOOD IN HER URINE WHICH HAS BEEN YELLOW TONIGHT. HOURLY ROUNDING IN PROGRESS.
[2019-01-08 04:32] LABS: PROTIME 10.3 Seconds (9.20-11.50)
[2019-01-08 04:51] LABS: ALBUMIN 2.6 g/dL (3.4-5.0); CALCIUM 8.2 mg/dL (8.5-10.1); CREATININE 0.7 mg/dL (0.6-1.3); POTASSIUM 4.5 mmol/L (3.5-5.1); TOTAL BILIRUBIN 0.3 mg/dL (<0.1-1.0); TOTAL PROTEIN 5.5 g/dL (6.4-8.2)
[2019-01-08 07:00] VITALS: BP 112/50
[2019-01-08 11:23] VITALS: BP 108/62
[2019-01-08 13:26] VITALS: BP 108/62
--- NOTE | 2019-01-08 17:06 | NUR ---
ASSUMMED CARE OF PT AT 0730, PT ALERT AND ORIENTED, PT TRANSFERS WITH SBA, GB WALKER, AMBULATED TO DININGROOM FOR LUNCH, PT COMPLAINS OF BACK PAIN , REFUSES PAIN MEDICATION OR LIDOCAINE PATCHES, PT DID TAKE 1 TYLENOL FOR HEADACHE THIS PM, TAKING FOOD AND FLUIDS WELL, AMBULATES TO BATHROOM TO VOID, PARTICIAPTED IN ALL THERAPIES, HOURLY ROUNDING COMPLETED, ASSESSMENT COMPLETE, WILL CONTINUE TO MNOITOR. AWAITING FAMILY FOR DISCHARGE LATER TODAY.
--- NOTE | 2019-01-08 18:47 | NUR ---
PT COMPLAINS OF HEADACHE BUT STATES IT IS SLIGHTLY BETTER SINCE MEDICATION GIVEN, PT ATE DINNER AND STATES SHE IS READY TO BE DISCHARGED, DAUGHTER HER TO TAKE PT HOME, DISCHARGE EDUCATION DONE WITH PT AND FAMILY, DISCUSSED MEDICATIONS, FOLLOW UP APPTS, WHEN TO CALL PHYSICIAN, HOME HEALTH, FALL PRECAUTIONS, FAMILY AND PT STATE UNDERSTANDING OF DISCHARGE INSTRUCTIONS, SCRIPT GIVEN TO DAUGHTER, PT DISCHARGED WITH BELONGINGS TO MAIN ENTRANCE.
== END 2019-01-08 18:45 | disposition home health service (06) | DRG 947 ==
LOC: M.3W 12:50 → M.REH 16:02
PROVIDERS: Internal Medicine; Internal Medicine Hematology & Oncology; ADMIT Physical Medicine & Rehabilitation
PROC: 0DJ08ZZ Inspection of Upper Intestinal Tract, Via Natural or Artificial Opening Endoscopic (ICD-10-PCS; principal; 2019-01-02)
PROC: 0DBP8ZX Excision of Rectum, Via Natural or Artificial Opening Endoscopic, Diagnostic (ICD-10-PCS; principal; 2019-01-02)
DX: R53.81 Other malaise (principal); J96.01 Acute respiratory failure with hypoxia; J18.9 Pneumonia, unspecified organism; A41.9 Sepsis, unspecified organism; E87.0 Hyperosmolality and hypernatremia; I50.22 Chronic systolic (congestive) heart failure; R18.8 Other ascites; R57.9 Shock, unspecified; E44.0 Moderate protein-calorie malnutrition; D58.9 Hereditary hemolytic anemia, unspecified; D62 Acute posthemorrhagic anemia; C92.10 Chronic myeloid leukemia, BCR/ABL-positive, not having achieved remission; K76.6 Portal hypertension; I85.10 Secondary esophageal varices without bleeding; K62.6 Ulcer of anus and rectum; Z68.1 Body mass index [BMI] 19.9 or less, adult; E86.0 Dehydration; K74.60 Unspecified cirrhosis of liver; D69.6 Thrombocytopenia, unspecified; G89.29 Other chronic pain; K31.89 Other diseases of stomach and duodenum; K64.4 Residual hemorrhoidal skin tags; Z88.0 Allergy status to penicillin; Z88.2 Allergy status to sulfonamides; Z88.6 Allergy status to analgesic agent; Z90.89 Acquired absence of other organs; Z87.891 Personal history of nicotine dependence

== ENCOUNTER 2019-02-18 10:43 | Inpatient (IN) | payer MEDICARE ==
[~2019-02-18] VITALS: Ht 165.1 cm; Wt 59.4 kg
[2019-02-18] VITALS (15 sets, daily range): BP systolic 80–159; BP diastolic 38–82
--- NOTE | ~2019-02-18 | CON ---
[address] [address] CONSULTATION Name: GOLDY DAVISON Room: [address] IN [facility].#: [id number] Admission: 02/18/19 Attend Phys: Boyd De Paz Discharge: Date of : 38 Report #: [id number] THIS REPORT FOR: //name// CC: Ana Swann HISTORY OF PRESENT ILLNESS: This is a pleasant 78-year-old female with past medical history significant for cirrhosis, decompensated by presence of ascites and varices, myelodysplastic syndrome, who is presenting with hematochezia. The patient reports she began experiencing these symptoms since yesterday. Initially, the stools were dark in color and progressed to getting dark red in color. She also reports associated dizziness and abdominal discomfort. The patient was diagnosed with cirrhosis and varices during her last hospitalization for similar upper GI bleed. Initially in November of this year, she underwent an EGD and banding of esophageal varices. A subsequent EGD was again performed in December for recurrent hematochezia and at this time, her varices were found to be blackened to grade 1. However, the patient did have a solitary ulcer in the rectum, which was biopsied and this too was normal. PAST MEDICAL HISTORY: Significant for myelodysplastic syndrome and cirrhosis. PAST SURGICAL HISTORY: Appendectomy, tonsillectomy. SOCIAL HISTORY: There is no significant history of smoking, alcohol or recreational drug use. FAMILY HISTORY: Negative for any colon or Stark related neoplasia. REVIEW OF SYSTEMS: Unable to obtain because the patient is currently in significant distress. PHYSICAL EXAMINATION: VITAL SIGNS: Temperature 37.3, pulse rate 93, respirations 16, blood pressure 94/50, pulse ox 99% on room air. GENERAL: The patient is alert, awake, responding appropriately. Appears to be in mild distress. The patient also appears to be chronically ill with temporal muscle wasting. Spider angiomata scattered over the upper extremities. HEENT: Mucous membranes are moist. There is no congestion. LUNGS: Clear to auscultation bilaterally. CARDIOVASCULAR: Rate and rhythm regular. S1, S2 present. ABDOMEN: Soft. There is no significant distention, guarding or rigidity. EXTREMITIES: Warm. There is about 1-2+ pitting edema bilaterally. LABORATORY DATA: Hemoglobin 7.2, hematocrit 22.6, platelet count 24, WBC count 12.7. Sodium 142, potassium 4.9, chloride 109, bicarbonate 21, BUN 39, creatinine 1. Total bilirubin 0.7, AST 19, ALT 18, alkaline [place] 66[place] [address] CONSULTATION Name: LANEYGOLDY C Room: [address] IN [facility]#: [id number] Admission: 02/18/19 Attend Phys: Boyd De Paz Discharge: Date of : 39 Report #: [id number] ASSESSMENT AND PLAN: A pleasant 78-year-old female with history of myelodysplastic syndrome and cirrhosis, known to have varices, who is presenting with bright red blood per rectum. The patient's platelets are too low for safely allow endoscopic evaluation. She will need platelet transfusion and her platelets maintained at least above 50 before we can proceed. I will place her on PPI and octreotide drips in the interim for variceal upper GI bleeding as well as 1 gram of ceftriaxone daily for antibiotic prophylaxis. Plan to perform the upper GI endoscopy tomorrow. Thank you for this consultation. Please do not hesitate to call if you have any questions. By: [id number] Najera MD /nt
[~2019-02-18 10:43] MED LIST changes: +CYCLOBENZAPRINE5 MG PO; +HYDREA500 MG PO; +LIDOPATCH1 EACH TOP; -SYNTHROID125 MC1 PO; +SYNTHROID200 MCG PO; +THERA M PLUS T1 EAC2 PO; +TRAMADOL 50 MG50 MG PO; +VITAMIN D1000 UNI1 PO
[2019-02-18 11:28] LABS: HEMATOCRIT 22.6 % (37.0-47.0); HEMOGLOBIN 7.2 gm/dL (12.0-15.0); MCH 27.1 pg (26.0-34.0); MCHC 31.8 g/dL (28.0-37.0); MCV 85.2 fL (80.0-100.0); MPV 8.6 fl. (7.2-11.1); RBC 2.65 mil/uL (4.20-5.00); RDW-CV 19.9 % (10.5-14.5); WBC 12.7 thou/uL (4.0-11.0)
[2019-02-18 11:31] LABS: PLATELET COUNT* 24 thou/uL (150-400)
[2019-02-18 11:38] LABS: INR 1.1; PROTIME 11.3 Seconds (9.20-11.50)
[2019-02-18 11:51] LABS: CALCIUM 8.5 mg/dL (8.5-10.1); POTASSIUM 4.9 mmol/L (3.5-5.1)
[2019-02-18 11:55] LABS: ALBUMIN 2.9 g/dL (3.4-5.0); TOTAL BILIRUBIN 0.7 mg/dL (<0.1-1.0); TOTAL PROTEIN 5.8 g/dL (6.4-8.2)
[2019-02-18 12:17] LABS: ABSOLUTE LYMPHOCYTES 1.7 thou/uL (0.8-5.3); ABSOLUTE MONOCYTES 0.3 thou/uL (0.0-1.2); ABSOLUTE NEUTROPHILS 10.8 thou/uL (1.6-8.1); METAMYELOCYTES 8 %; NUCLEATED RBCS 3 /100WBC
--- NOTE | 2019-02-18 14:09 | NUR ---
CALL BACK TO DR. SMITH FOR PT'S CONTINUING LOW BLOOD PRESSURE, AT [address] SMITH FOR A BLOOD PRESSURE 77/36 AND PER VERBAL ORDER STARTED A LITER OF NORMAL SALINE WIDE OPEN. BLOOD PRESSURE HAS NOT IMPROVED. DR. SMITH HAS ASKED FOR PICC LINE TO BE PLACED, PICC LINE TEAM CALLED FOR PICC LINE TO BE PLACED. DR. SMITH HAS COME TO ER AND TALKED WITH THIS RN, PT IS UNDER DR. GARIBAY'S CARE. FAMILY INFORMED OF PLANS
--- NOTE | 2019-02-18 15:06 | NUR ---
RIGHT BASILIC VESSEL ACCESSED FOR 5 OCCITAN DUAK KUMEN PICC. LINE PRE-TRIMMED TO 41 CM AND ADVANCED TO TH3E 1CM VIVIANA WITH NO RESISTANCE MET. UPPER ARM CIRCUMFERENCE ABOVE INSERTION SITE = 7 1/2". SHERLOCK MAGNET AND 3CG CONFIRMATION OF TIP TERMINATION AT THE CAVOATRIAL JUNCTION APPRECIATED. INSERTINO ASTIE DRESSED, GUIDWIRE REMOVED AND LINE FLUSHED. REPORT GIVEN TO NURSING STAFF.
--- NOTE | 2019-02-18 15:38 | EKG ---
[place] [address] ELECTROCARDIOGRAM REPORT Name: GOLDY DAVISON Room: [place] [address] ADM IN [facility].#: [id number] Admission: 02/18/19 Attend Phys: Boyd De Paz Discharge: Date of : 38 Report #: [id number] THIS REPORT FOR: //name// [facility] ED Test Date: 2019-02-18 Test Time: 11:58:58 Pat Name: GOLDY DAVISON Department: Room: [place] [address] Gender: F Telecommunications Network Engineer: YVONNE : 1940 Requested By: Chris Ricks Order Number: [id number] MD: Doug Solano Measurements Intervals Deweese Rate: 86 P: 105 IA: 151 QRS: 100 QRSD: 130 T: 111 QT: 411 QTc: 492 Interpretive Statements Right and left arm electrode reversal, interpretation assumes no reversal Sinus rhythm Probable left atrial enlargement Nonspecific intraventricular conduction delay Nonspecific T abnormalities, lateral leads Compared to ECG 12/12/2018 11:48:12 Junctional rhythm no longer present Ventricular premature complex(es) no longer present T-wave abnormality still present Electronically Signed On 02-18-2019 15:37:52 CDT by Doug Solano [email or web address] <ELECTRONICALLY SIGNED> By: Doug Solano MD, [facility] 02/18/19 1537 1158 [id number] Doug Solano MD, [facility] /EPI
--- NOTE | 2019-02-18 16:30 | NUR ---
EGD PLANNED FOR TOMORROW PER DR OTERO IF PLATLETS ARE ABOVE 50. DR GARIBAY CALLED TO CHECK ON PATIENT, INFORMED OF PATIENT STATUS. LABS ORDERED FOR AM.
--- NOTE | 2019-02-18 16:30 | NUR ---
REPORT GIVEN TO FOURTH GRADE TEACHER WILLIAMS. ALL QUESTIONS ANSWERED. PATIENT TRANSFERED TO ROOM 6
--- NOTE | 2019-02-18 18:45 | NUR ---
RECEIVED PT FROM ER. PT HAD ONE BLOODY STOOL. PT ON LEVOPHED. TITRATING PER PROTOCOL. PT 90-92% ON 02. 2L NC PLACED. PT SATTING 98%. PER ER REPORT PT RECEIVED ONE UNIT OF RBCS AND ONE UNIT OF PLATELETS IN ER. URINE SAMPLE COLLECTED.
[2019-02-18 20:35] LABS: URINE BILIRUBIN NEGATIVE (Negative); URINE BLOOD TRACE (Negative); URINE CLARITY CLEAR; URINE COLOR YELLOW; URINE GLUCOSE-RANDOM NEGATIVE (Negative); URINE KETONES NEGATIVE (Negative); URINE LEUKOCYTES-REFLEX TRACE (Negative); URINE NITRITE-REFLEX NEGATIVE (Negative); URINE PROTEIN NEGATIVE (Negative); URINE UROBILINOGEN 0.2 E.U./dl (0.2-1.0)
[2019-02-18 20:42] LABS: HEMOGLOBIN 6.4 gm/dL (12.0-15.0)
[2019-02-18 20:43] LABS: BACTERIA-REFLEX 1-9 Few /HPF (None Seen); HYALINE CASTS 0-3 Few /LPF (None Seen); URINE WBC-REFLEX 0-5 Rare /HPF (0-5)
[2019-02-18 20:44] LABS: URINE RBC 0-2 Rare /HPF (0-2)
[2019-02-18 20:46] LABS: CASTS None Seen /LPF (None Seen); CRYSTALS None Seen /LPF (None Seen); MUCUS None Seen strn/LPF (None Seen); SQUAMOUS NONE SEEN /LPF (0-3)
--- NOTE | 2019-02-18 22:00 | NUR ---
PT. WANTING TO GET UP TO COMMODE EVERY 30 MIN-1HOUR. INFORMED HER THAT HER HGB IS 6.4 AND SHE IS ON A MEDICATION FOR HER BLOOD PRESSURE, SHE CANNOT GET OUT OF BED. REFUSING BEDPAN. REFUSING GUERRIER. CONSTANCE FEMALE EXTERNAL CATHETER APPLIED. PT. VERY RESTLESS, WANTS TO GET UP AND SIT ON SIDE OF BED EVERY 30 MIN. WILL CONTINUE TO MONITOR.
[2019-02-19] VITALS (40 sets, daily range): BP systolic 91–121; BP diastolic 27–71
[2019-02-19 04:45] LABS: HEMATOCRIT 21.5 % (37.0-47.0); HEMOGLOBIN 7.1 gm/dL (12.0-15.0); MCH 28.7 pg (26.0-34.0); MCHC 32.9 g/dL (28.0-37.0); MCV 87.1 fL (80.0-100.0); MPV 8.8 fl. (7.2-11.1); RBC 2.47 mil/uL (4.20-5.00); RDW-CV 18.6 % (10.5-14.5); WBC 12.3 thou/uL (4.0-11.0)
[2019-02-19 04:55] LABS: CALCIUM 7.6 mg/dL (8.5-10.1); CREATININE 0.8 mg/dL (0.6-1.3); POTASSIUM 4.4 mmol/L (3.5-5.1)
--- NOTE | 2019-02-19 05:19 | NUR ---
PT. HAD ONE LARGE DARK MAROON LIQUID BM THIS SHIFT. LEVOPHED GTT TURNED OFF AT 0330. PT. UP TO BSC AFTER LEVOPHED GTT TURNED OFF. PT. REFUSES TO LAY ON BACK, AGREED TO BE TURNED TO RIGHT SIDE ONCE THIS SHIFT. PT. FREQUENTLY ASKED FOR DAUGHTER TO COME AND STAY IN ROOM WITH HER, EDUCATED ON VISITING HOURS AND INFORMED PT. THAT HER DTR WAS IN THE WAITING ROOM. REQUESTED SOMETHING TO HELP HER SLEEP, SHE STATED AT HOME HER " MASSAGES HER TO SLEEP" EVERY NIGHT. PT. VERY RESTLESS. CALL LIGHT REMAINS IN REACH, WILL CONTINUE TO MONITOR.
--- NOTE | 2019-02-19 08:39 | NUR ---
6599 ASSUMED CARE OF PATIENT. SEE DOCUMENTED ASSESSMENT. TO RECEIVE PLATELETS. DAUGHTER PRESENT
--- NOTE | 2019-02-19 09:37 | NUR ---
Nutrition: pt screnn for "pressure wound." However, no documentation of wound was found on this admit. Nsg reports pt has scars from old wound but nothing now. Pt borderline underweight per BMI. Pt is NPO.
--- NOTE | 2019-02-19 10:07 | NUR ---
CONSENT OBTAINED FOR EGD. SECOND UNIT OF PLATELETS COMPLETED. FAMILY PRESENT.
--- NOTE | 2019-02-19 10:45 | NUR ---
PT KNOWN TO [facility] FROM PREVIOUS ADMISSION. SHE LIVES AT HOME WITH HER AND DAUGHTERS. SHE HAS BEEN GETTING 'NATURAL' TREATMENTS FOR HER CANCER. SPOKE WITH PT, SHE SAID SHE HAD BEEN MANAGING FAIRLY WELL AT HOME. SHE GETS AROUND THE HOUSE WITH HER WALKER, SHE HAS A BEDSIDE COMMODE. SHE HAD HOME HEALTH FROM [facility] AFTER LAST HOSPITAL STAY BUT THEY ARE NO LONGER COMING. PT PLANS ON RETURNING HOME WITH FAMILY. DISCUSSED ROLE OF [facility] PRO, WILL CONTINUE TO FOLLOW.
--- NOTE | 2019-02-19 11:38 | NUR ---
7464 BATHER. TO OR PER BED. SPOUSE PRESENT
--- NOTE | 2019-02-19 12:31 | NUR ---
1200 back from OR.
--- NOTE | 2019-02-19 15:43 | NUR ---
[address] PER BED WITH ONGOING MONITORING AND NURSE
--- NOTE | 2019-02-19 17:54 | NUR ---
SOME PROGRESSION TOWARDS GOALS. TWO UNITS OF PLATELETS INFUSED. EGD COMPLETED AT NOON. ABDOMINAL CT COMPLETED. LIQUID DIET RESUMED. DENIES NAUSEA. HAS RESTLESS LEGS AND FAMILY HAS BROUGHT HER TENS UNIT FROM HOME. OFF OF PROTONIX AND OCTREOTIDE DRIPS. ORAL MEDS RESUMED. MANY VISITORS. REMAINS OFF PRESSORS
[2019-02-20] VITALS (17 sets, daily range): BP systolic 94–122; BP diastolic 40–73
[2019-02-20 04:50] LABS: HEMATOCRIT 20.4 % (37.0-47.0); MCH 28.8 pg (26.0-34.0); MCHC 32.5 g/dL (28.0-37.0); MCV 88.7 fL (80.0-100.0); NUCLEATED RBCS 2 /100WBC; PLATELET COUNT* 51 thou/uL (150-400); RDW-CV 18.9 % (10.5-14.5); WBC 10.1 thou/uL (4.0-11.0)
[2019-02-20 05:18] LABS: HEMOGLOBIN 6.6 gm/dL (12.0-15.0)
[2019-02-20 05:27] LABS: ABSOLUTE EOSINOPHILS 0.1 thou/uL (0.0-0.7); ABSOLUTE LYMPHOCYTES 1.1 thou/uL (0.8-5.3); ABSOLUTE MONOCYTES 0.7 thou/uL (0.0-1.2); ABSOLUTE NEUTROPHILS 8.2 thou/uL (1.6-8.1); ANISOCYTOSIS 1+; METAMYELOCYTES 1 %; MYELOCYTES 1 %; PLATELET ESTIMATE DECREASED; POIKILOCYTOSIS 1+; POLYCHROMASIA 1+; TEARDROPS 1+
[2019-02-20 05:28] LABS: OVALOCYTES 2+; SCHISTOCYTES Occasional; TOXIC GRANULATION 1+
[2019-02-20 05:29] LABS: MICROCYTES Occasional
--- NOTE | 2019-02-20 06:55 | NUR ---
ASSUMED CARE AT 1910H.ON NC AT 2LPM.NO HYPOTENSION AND TACHYCARDIA NOTED.NO ACTIVE BLEEDING NOTE, BM WITH SMALL [place] DARK BROWN.HGB 6.6, INFORM GI DOCTOR WITH TO OF 2 UNITS PRBC.1ST UNIT OF PRBC ONGOING.CONTINUE CARE AND MONITOR VS AND REACTION FROM BLOOD.
--- NOTE | 2019-02-20 08:15 | NUR ---
ASSUMED PT 0730. PT A/O X'S 4. NO C/O PAIN. ONE SMALL DARK BROWN STOOL. PT UP TO BSC . NO S/S OF BLEEING. PT RECEIVING BLOOD TRANSFUSION PER ORDERS. PT ENCOURAGED TO SIT IN RECLINER. RECLINER PLACED IN PT'S ROOM. PT ASKING TO EAT. PT EDUCATED ON CLEAR LIQUID DIET.
--- NOTE | 2019-02-20 12:27 | NUR ---
AT END OF BLOOD TRANSFUSION TEMP 100.3. NOTIFIED. TEMP RECHECKED AND TEMP 98.2. RECEIVED ORDERS TO NOTIFY DR WHEN TEMP >101. NOTIFIED THAT PT ALSO HAS RESPIRATIONS 25-32. RECEIVED ORDERS FOR LASIX.
[2019-02-20 13:43] LABS: HEMATOCRIT 23.1 % (37.0-47.0); HEMOGLOBIN 7.4 gm/dL (12.0-15.0)
--- NOTE | 2019-02-20 16:45 | NUR ---
PT UP MULTIPLE TIMES THIS SHIFT TO [facility] [place]. PT APPEARS TIRED AND WEAK. BEDPAN OFFERED AND PT STATED NO. CATHETER OFFERED AT END OF SHIFT AND PT STATED NO. HEMOGLOBIN RECHECK AFTER 2 BLOOD TRANSFUSIONS AND 7.4. NO BLOODY BMS THIS SHIFT. PT HAS HAD 3 DARK BROWN STOOLS AND 3-4 SMEARS OF DARK BROWN STOOL.
--- NOTE | 2019-02-20 17:50 | NUR ---
DISCUSSED WITH PT BATHROOM OPTIONS. PT APPEARS TIRED FROM GETTING UP FREQUENTLY TO BSC. DISCUSSED GUERRIER CATHETER AND BED COLEMAN. PT AGREEABLE TO USE BED COLEMAN AT THIS TIME.
--- NOTE | 2019-02-20 18:54 | NUR ---
PT TRANSFER FROM ICU. RECEIVED REPORT FROM MANJIT MAURICE, I REVIEWED AGREE WITH HER ASSESSMENT. VSS. TELE IN PLACED. GET SITUATED TO ROOM. HOURLY ROUNDING. CALL LIGHT WITHIN REACH. WILL CONTINUE TO MONITOR.
[2019-02-21 00:05] VITALS: BP 120/48
[2019-02-21 06:19] LABS: ABSOLUTE BASOPHILS 0.1 thou/uL (0.0-0.2); ABSOLUTE EOSINOPHILS 0.1 thou/uL (0.0-0.7); ABSOLUTE LYMPHOCYTES 0.7 thou/uL (0.8-5.3); ABSOLUTE MONOCYTES 0.6 thou/uL (0.0-1.2); ABSOLUTE NEUTROPHILS 7.4 thou/uL (1.6-8.1); BASOPHILS 1.4 %; EOSINOPHILS 1.2 %; HEMATOCRIT 23.1 % (37.0-47.0); HEMOGLOBIN 7.6 gm/dL (12.0-15.0); LYMPHOCYTES 8.2 %; MCH 28.5 pg (26.0-34.0); MCHC 32.9 g/dL (28.0-37.0); MCV 86.7 fL (80.0-100.0); MONOCYTES 6.3 %; MPV 11.5 fl. (7.2-11.1); NUCLEATED RBCS 1 /100WBC; POLYS 82.9 %; RBC 2.66 mil/uL (4.20-5.00); WBC 8.9 thou/uL (4.0-11.0)
--- NOTE | 2019-02-21 06:31 | NUR ---
PT SLEPT OFF AND ON OVERNIGHT, RESTLESS PER FAMILY BUT DENIES NEEDS TO STAFF. FAMILY ATTENTIVE AT BEDSIDE WITH BACK RUBS, SOOTHING MUSIC AND REPOSITIONING NEEDED. IVF INFUSING TO R PICC, UP WITH ASSIST TO VOID BSC, NO BMS REPORTED. AM LABS DRAWN. FREQUENT REPOSITIONING PER FAMILY FOR COMFORT. O2 3L. TELE SR PVC. ABLE TO USE CALL LITE AND MAKE NEEDS KNOWN. PT REQUEST INCREASE DOSE OF LEVOTHYROXINE, DR NOTIFIED AND MED GIVEN. NO BLEEDING NOTED OVERNIGHT.
[2019-02-21 06:35] LABS: PLATELET COUNT* 39 thou/uL (150-400)
[2019-02-21 08:00] VITALS: BP 114/58
[2019-02-21 12:00] VITALS: BP 110/46; BP 99/42
[2019-02-21 16:00] VITALS: BP 123/73
--- NOTE | 2019-02-21 18:37 | NUR ---
RECEIVED REPORT AND ASSUMED CARE AT 0700. VSS. CARDIAC MONITORING IN PLACE. PT DENIES COMPLAINTS OF PAIN. ASSESSMENT COMPLETED CHARTED. PT UP WITH ASSIST TO BSC. ON 3L NC. BED LOCKED IN LOWEST POSITION, CALL LIGHT WITHIN REACH. POSITION CHANGED EVERY TWO HOURS AND PRN. HOURLY ROUNDING COMPLETED AND ALL NEEDS MET.
[2019-02-22] VITALS: BP 116/64
[2019-02-22 04:00] VITALS: BP 110/61
--- NOTE | 2019-02-22 04:33 | NUR ---
ASSUMED CARE OF PT AT 1900. PT IS ALERT AND ORIENTED. VSS. PERRLA. NO COMPLAINTS OF PAIN. NO BLOODY STOOLS. PT IS ON 3 LITERS OF O2. PT IS IN SINUS RYTHM ON THE TELEMETRY. PT IS RESTING COMFORTABLY IN BED. RESPIRATIONS ARE EVEN AND NONLABORED. WILL CONTINUE TO MONITOR PT.
[2019-02-22 04:46] LABS: ABSOLUTE BASOPHILS 0.1 thou/uL (0.0-0.2); ABSOLUTE EOSINOPHILS 0.2 thou/uL (0.0-0.7); ABSOLUTE LYMPHOCYTES 0.9 thou/uL (0.8-5.3); ABSOLUTE MONOCYTES 0.6 thou/uL (0.0-1.2); ABSOLUTE NEUTROPHILS 7.3 thou/uL (1.6-8.1); BASOPHILS 1.2 %; EOSINOPHILS 1.7 %; HEMATOCRIT 23.2 % (37.0-47.0); HEMOGLOBIN 7.5 gm/dL (12.0-15.0); LYMPHOCYTES 9.7 %; MCH 28.7 pg (26.0-34.0); MCHC 32.4 g/dL (28.0-37.0); MCV 88.5 fL (80.0-100.0); MONOCYTES 6.2 %; MPV 11.8 fl. (7.2-11.1); NUCLEATED RBCS 1 /100WBC; POLYS 81.2 %; RBC 2.62 mil/uL (4.20-5.00); RDW-CV 18.8 % (10.5-14.5)
[2019-02-22 04:57] LABS: PLATELET COUNT* 37 thou/uL (150-400)
[2019-02-22 05:07] LABS: CALCIUM 7.8 mg/dL (8.5-10.1); CREATININE 0.6 mg/dL (0.6-1.3); POTASSIUM 3.1 mmol/L (3.5-5.1)
[2019-02-22 08:01] VITALS: BP 110/56
--- NOTE | 2019-02-22 10:20 | NUR ---
PT ALERT AND ORIENTED. TELE TRACKING SR AND ALL VSS ON 3L. DENIES CP, SOA, BUT DOES STATE NOSE FEELS CONGESTED, THUS IS MOUTH BREATHING- HUMIDITY ADDED. C/O GENERALIZED WEAKNESS AND FATIGUE. HAD BROWN WATERY BM X1 SO FAR THIS SHIFT. FAMILY AT BEDSIDE. EDUCATED ON SAFETY AND PLAN OF CARE. PLEASE SEE ASSESSMENT FOR ADDITIONAL INFORMATION. WILL CONT TO MONITOR
[2019-02-22 11:30] VITALS: BP 119/71
--- NOTE | 2019-02-22 13:35 | NUR ---
RF MICROWAVE ENGINEER SPOKE TO THE PATIENT AND SPOUSE TO DISCUSS DISCHARGE PLANNING, HH, AND A F/U APPOINTMENT WITH GI. PATIENT DECLINED HH, DESPITE EDUCATION AND ENCOURAGEMENT. PATIENT'S SPOUSE INFORMS THAT THE PATIENT 'WAS SUPPOSED TO HAVE A F/U APPOINTMENT SCHEDULED WITH [facility]. D/C NUT STEAMER ATTEMPTED TO SCHEDULE A F/U APPOINTMENT FOR THE PATIENT WITH GI AT [facility], AND WAS INFORMED BY SCHEDULING THAT THE PATIENT HAD AN APPOINTMENT SCHEDULED, BUT DECLINED THE VISIT SHE WAS UNABLE TO AFFORD THE $1OO CO-PAY (DUE TO ONLY HAVE MEDICARE PART A INSURANCE), AND THE PATIENT WOULD NEED TO PAY THIS PRIOR TO HAVING THE APPOINTMENT SCHEDULED AGAIN. PATIENT AND SPOUSE INFORMED OF THIS INFO, AND THAT THEY ARE IN AGREEMENT. CM WILL REMAIN AVAILABLE TO ASSIST AND FOLLOW NEEDED. [facility] PHONE: [phone]
--- NOTE | 2019-02-22 19:25 | NUR ---
REST/EXERCISE PULSE OX COMPLETED AT APPROX 1845 THIS SHIFT DUE TO PT'S MULTIPLE REQUESTS FOR RESPIRATORY THERAPIST TO COME BACK AT LATER TIMES. PT DOES QUALIFY FOR O2 AT REST AND WITH ACTIVITY. ORDERS FAXED TO [facility] AT 1900 AND CALL PLACED TO LEXIE WITH [facility] AT 1915-VOICE MAIL LEFT WITH CALL BACK NUMBER.
[2019-02-23] VITALS: BP 116/60
--- NOTE | 2019-02-23 03:20 | NUR ---
ASSUMED CARE OF PT AT 1900. PT IS ALERT AND ORIENTED. VSS. PERRLA. NO COMPLAINTS OF PAIN. UP WITH 1 ASSIST. PT IS IN A FIB ON THE TELEMETRY. PT IS RESTING COMFORTABLY IN BED. RESPIRATIONS ARE EVEN AND NONLABORED. WILL CONTINUE TO MONITOR PT.
[2019-02-23 04:00] VITALS: BP 116/70
[2019-02-23 06:24] LABS: HEMATOCRIT 25.7 % (37.0-47.0); HEMOGLOBIN 8.3 gm/dL (12.0-15.0); MCH 28.3 pg (26.0-34.0); MCHC 32.2 g/dL (28.0-37.0); MCV 87.9 fL (80.0-100.0); MPV 11.5 fl. (7.2-11.1); NUCLEATED RBCS 0 /100WBC; RBC 2.93 mil/uL (4.20-5.00); RDW-CV 19.1 % (10.5-14.5); WBC 12.7 thou/uL (4.0-11.0)
[2019-02-23 06:27] LABS: PLATELET COUNT* 44 thou/uL (150-400)
[2019-02-23 06:28] LABS: CALCIUM 8.3 mg/dL (8.5-10.1); CREATININE 0.6 mg/dL (0.6-1.3); POTASSIUM 4.1 mmol/L (3.5-5.1)
[2019-02-23 06:48] LABS: ABSOLUTE BASOPHILS 0.4 thou/uL (0.0-0.2); ABSOLUTE EOSINOPHILS 0.3 thou/uL (0.0-0.7); ABSOLUTE LYMPHOCYTES 1.4 thou/uL (0.8-5.3); ABSOLUTE MONOCYTES 0.8 thou/uL (0.0-1.2); ABSOLUTE NEUTROPHILS 9.9 thou/uL (1.6-8.1); PLATELET ESTIMATE DECREASED
[2019-02-23 06:49] LABS: LARGE PLATELETS OCCASIONAL; POLYCHROMASIA 1+; SCHISTOCYTES 1+
[2019-02-23 06:50] LABS: ANISOCYTOSIS 1+; OVALOCYTES 2+; POIKILOCYTOSIS 2+
[2019-02-23 07:55] VITALS: BP 104/57
--- NOTE | 2019-02-23 10:28 | NUR ---
ASSUMED CARE OF PT AROUND 0730 THIS AM. REFER TO ASSESSMENT. PT AFIB WITH RATE AROUND 114 THIS AM. PT GETTING DIGOXIN LOAD TODAY. PT'S DAUGHTER REFUSED ORAL LOW DOSE METOPROLOL D/T HISTORY WITH HYPOTENSION WITH PREVIOUS ADMINISTRATIONS. NO OTHER CONCERNS AT THIS TIME. CLWR. WCTM.
[2019-02-23 11:30] VITALS: BP 99/54
--- NOTE | 2019-02-23 14:10 | NUR ---
PATIENT DISCHARGE WAS PLACED ON HOLD D/T CHANGE IN STATUS. PATIENT WILL NOW NEED HOME OXYGEN AT D/C. ATTEMPTED TO ARRANGE WITH [facility], BUT THE COST ($241.60/MONTH) IS UNAFFORDABLE ACCORDING TO THE PATEINT'S DTR. D/C RESIDENT PHYSICIAN IN RADIOLOGY PRICED HOME OXYGEN WITH MULTIPLE OTHER COMPANIES AND FOUND THAT [facility] WILL PROVIDE HOME OXYGEN ($107/MONTH) WITH CONCENTRATOR, TANK, AND SUPPLIES. D/C RESIDENT PHYSICIAN IN RADIOLOGY INFORMED PATIENT'S DTR GOLDY OF THE COST WITH [facility] AND SHE IS IN AGREEMENT WITH THAT COST. D/C RESIDENT PHYSICIAN IN RADIOLOGY FAXED PATIENT'S FACESHEET, H&P, OXYGEN ORDERS, AND TESTING TO [facility]. PHYSICIAN IN-CHARGE OF THE PATIENT INFORMS THAT THE PATIENT WILL REMAIN IN THE HOSPITAL TODAY, BUT MAY D/C TOMORROW. CM WILL REMAIN AVAILABLE TO ASSIST AND FOLLOW NEEDED. [facility] PHONE: [phone] FAX: [phone]
--- NOTE | 2019-02-23 15:43 | EKG ---
[place] [address] ELECTROCARDIOGRAM REPORT Name: GOLDY DAVISON Room: [address] ADM IN M.R.#: [id number] Admission: 02/18/19 Attend Phys: Boyd De Paz Discharge: Date of : 38 Report #: [id number] THIS REPORT FOR: //name// [facility] Test Date: 2019-02-23 Test Time: 05:47:29 Pat Name: GOLDY DAVISON Department: Room: [address] Gender: F [employer] Specialist: ELIZABET : 1940 Requested By: Tahir Swann Order Number: [id number] Ari MD: Titus Bates Measurements Intervals [place] Rate: 123 P: [place]: QRS: 54 QRSD: 127 T: 197 QT: 315 QTc: 451 Interpretive Statements Atrial fibrillation Nonspecific intraventricular conduction delay Repol abnrm suggests ischemia, anterolateral Compared to ECG 02/18/2019 11:58:58 Early repolarization now present Possible ischemia now present Sinus rhythm no longer present T-wave abnormality no longer present Electronically Signed On 02-23-2019 15:43:00 CDT by Titus Bates [email or web address] <ELECTRONICALLY SIGNED> By: Titus Bates MD, FAC 02/23/19 1543 0547 0547 Titus Bates MD, FAC /EPI
[2019-02-23 16:00] VITALS: BP 116/54
--- NOTE | 2019-02-23 16:05 | NUR ---
PT SOMEWHAT PROGRESSING TOWARDS GOALS THIS SHIFT. TELE CONTINUES AFIB WITH RATE IN THE 90'S. PT AND DAUGHTER REFUSED LOW DOSE METOPROLOL FOR RATE CONTROL REPORTING THAT IT ALWAYS LOWERS HER BLOOD PRESSURE TOO LOW WITH PREVIOUS ADMINISTRATIONS. ATTEMPTING TO CONTROL RATE WITH DIGOXIN LOAD. WILL ASSESS FOR APPROPRIATENESS OF DC HOME TOMORROW. NO OTHER CONCERNS AT THIS TIME. CLWR. WCTM.
[2019-02-24] VITALS: BP 108/40
--- NOTE | 2019-02-24 01:29 | NUR ---
ASSUMED CARE OF PT AT 1900. PT IS ALERT AND ORIENTED. VSS. PERRLA. NO COMPLAINTS OF PAIN. PT IS IN A FIB ON THE TELEMETRY. PT IS RESTING COMFORTABLY IN BED. RESPIRATIONS ARE EVEN AND NONLABORED. WILL CONTNUE TO MONITOR PT.
[2019-02-24 04:00] VITALS: BP 101/43
[2019-02-24 08:00] VITALS: BP 113/69
[2019-02-24 12:00] VITALS: BP 105/60
--- NOTE | 2019-02-24 12:32 | NUR ---
DC orders written. SADIE spoke with Veronica, at [facility] regarding o2, referral was not received yesterday, CM refaxed, asked nurse to order a new ex ox, anticipate that [facility] will need an updated testing. Veronica to contact Pt's dtr regarding payment, and will call Cm back with tank delivery time. CM updated Pt and . CM inqired about HH at dc, Pt declined. One of Pt's children will provide dc transportation.
[2019-02-24] MEDS ORDERED: DIGOXIN125 MCG PO (13:51)
--- NOTE | 2019-02-24 15:17 | NUR ---
ASSUMED PT CARE AT 0800. AOX4, UP WITH ASSIST. O2 SAT AT 90'S 2L O2 SAT. TRACING AFIB ON MONITOR. PT FOR DISCHARGE TODAY. PT DENIES PT. PT ABDOMEN SISTENDED. LAST BM 02/22/19. PT HAS PICC LINE INTACT. IV AT R FOREARM INTACT. PT LOWER EXTREMITY EDEMA NOTED. MEDS GIVEN PER NOV. VSS, AM ASSESSMENT CHARTED. HOURLY ROUNDING. CALL LIGHT WITHIN REACH. WILL CONTINUE TO MONITOR.
--- NOTE | 2019-02-24 18:39 | NUR ---
DISCHARGE PLAN DISCUSSED WITH PT AND . TELE, IV PICC LINE REMOVED. MEDICATION PACKET/SCRIPT GIVEN. REMINDED TO FOLLOW UP WITH PCP, CARDIOLOGY, GI. ALL BELONGINGS PACKED AND CHECKED. LEFT THE UNIT WITH VIA WHEELCHAIR, O2 1840.
== END 2019-02-24 18:47 | disposition home or self-care (01) | DRG 368 ==
LOC: M.ERS 10:43 → M.TBA-ER 11:41 → M.ICU 11:41 → M.2W 02-20 18:28
PROVIDERS: Internal Medicine; Nurse Practitioner Psychiatric/Mental Health; ADMIT Internal Medicine
DX: I85.01 Esophageal varices with bleeding (principal); I50.23 Acute on chronic systolic (congestive) heart failure; D62 Acute posthemorrhagic anemia; E44.0 Moderate protein-calorie malnutrition; R18.8 Other ascites; C95.90 Leukemia, unspecified not having achieved remission; K76.6 Portal hypertension; I86.4 Gastric varices; D69.6 Thrombocytopenia, unspecified; K74.60 Unspecified cirrhosis of liver; D46.9 Myelodysplastic syndrome, unspecified; I95.9 Hypotension, unspecified; K31.89 Other diseases of stomach and duodenum; I48.91 Unspecified atrial fibrillation; K75.4 Autoimmune hepatitis; E03.9 Hypothyroidism, unspecified; Z88.6 Allergy status to analgesic agent; Z88.0 Allergy status to penicillin; Z88.2 Allergy status to sulfonamides; Z90.49 Acquired absence of other specified parts of digestive tract; Z68.21 Body mass index [BMI] 21.0-21.9, adult; Z79.899 Other long term (current) drug therapy

== ENCOUNTER 2019-04-01 22:04 | Inpatient (IN) | payer MEDICARE, OTHER, MEDICAID ==
[~2019-04-01] VITALS: Ht 165.1 cm; Wt 53.4 kg
--- NOTE | ~2019-04-01 | CON ---
[address] [address] CONSULTATION Name: GOLDY DAVISON Room: [address] IN ..#: [id number] Admission: 04/01/19 Attend Phys: Eran Garrett MD Discharge: Date of : 38 Report #: [id number] THIS REPORT FOR: //name// CC: Eran Hills MD DICTATED BY: Tammie David [facility] DATE OF SERVICE: 04/05/2019 REASON FOR CONSULTATION: Recurrent ascites. HISTORY OF PRESENT ILLNESS: This is a 78-year-old female who presented to the Emergency Room complaining of abdominal discomfort and distention, which had worsened over the last 2 days. In discussing with her , she was not taking her 20 mg of Lasix on a regular basis. She was taking her spironolactone 50 mg daily, but not her Lasix. She would only take her Lasix whenever her feet would swell, which was just once in a while, which likely has contributed to the worsening of her ascites. The patient was diagnosed in November of this year with decompensated cirrhosis. She had a GI bleed at that time and underwent variceal banding in November x . She had repeat EGD on 02/13 for similar findings, noting severe portal hypertension, in which she did have some oozing of those and her varices at that time were very small. She also underwent a colonoscopy back in November since she has never had one. This showed some localized inflammation that was negative with biopsy and nonthrombosed external hemorrhoids. The patient also has been diagnosed with untreated leukemia 2 years ago and does not want any treatment for this and is more in the holistic nature of treatment. ALLERGIES: PENICILLIN, SULFA, AND CODEINE. MEDICATIONS: From home include spironolactone 50, Synthroid 200, midodrine, vitamin D, and Lasix 20 mg was p.r.n. 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 PAST SURGICAL HISTORY: Negative. FAMILY HISTORY: Noncontributory. SOCIAL HISTORY: Denies any alcohol, tobacco or illegal drug use. REVIEW OF SYSTEMS: Twelve-point review of systems is essentially negative, except what is [place] [address] CONSULTATION Name: GOLDY DAVISON Ethan Room: [address] IN [facility]#: [id number] Admission: 04/01/19 Attend Phys: Eran Garrett MD Discharge: Date of : 38 Report #: [id number] PHYSICAL EXAMINATION: VITAL SIGNS: Temperature 36.9, pulse 104, respirations 16, blood pressure 82/47. HEART: Irregular rate and rhythm. LUNGS: Diminished bilaterally, more so on the right than the left. ABDOMEN: Soft, positive bowel sounds in all 4 quadrants, with no masses or tenderness noted. LABORATORY DATA: Hemoglobin is 8.4, white count is 11.7, platelets 152. PT 11.3, INR 1.1. GFR is 48. Total bilirubin 0.5, alkaline phosphatase 64, ALT 10, AST is 19. Her ammonia level was 45, total protein 6.3, albumin was 2.8. The patient did undergo a paracentesis on the and they pulled off 2370. She went down for a repeat this morning and there was minimal to remove. IMPRESSION: 1. Recurrent refractory ascites. 2. History of cirrhosis of the liver. 3. Esophageal varices. 4. Leukemia. 5. Urinary tract infection. PLAN: 1. Instructed , the patient, and daughter regarding taking Lasix and spironolactone together on a regular basis and that was likely a contributing factor for her reentering the hospital with an accumulation of ascetic fluid. 2. We will decrease her lactulose down to 30 once daily and see how that helps with her bowel movements. 3. We will allow the patient to resume her diet. 4. No further recommendations to be made regarding any adjustments in her diuretics at this time. Thank you for allowing us to participate in this patient's care. Please do not hesitate to call with any questions in regard to this consult. By: [id number] [id number] Walker DO /olga
[~2019-04-01 22:04] MED LIST changes: +DIGOXIN125 MCG PO
[2019-04-01 22:26] VITALS: BP 95/52
[2019-04-01] MEDS ORDERED: LASIX 20 MG TAB20 MG PO (22:32)
[2019-04-01] MEDS ORDERED: ALDACTONE50 MG PO (22:32)
[2019-04-01 23:21] LABS: MCH 31.1 pg (26.0-34.0); MCHC 30.1 g/dL (28.0-37.0); MCV 103.5 fL (80.0-100.0); MPV 8.9 fl. (7.2-11.1); NUCLEATED RBCS 1 /100WBC; PLATELET COUNT* 166 thou/uL (150-400); RDW-CV 22.6 % (10.5-14.5); WBC 15.3 thou/uL (4.0-11.0)
[2019-04-01 23:30] LABS: CALCIUM 8.9 mg/dL (8.5-10.1); CREATININE 1.1 mg/dL (0.6-1.3); POTASSIUM 4.7 mmol/L (3.5-5.1)
[2019-04-01 23:35] LABS: ALBUMIN 3.2 g/dL (3.4-5.0); MAGNESIUM 2.5 mg/dL (1.8-2.4); PHOSPHORUS* 4.9 mg/dL (2.5-4.9); TOTAL PROTEIN 6.7 g/dL (6.4-8.2)
[2019-04-02] VITALS (8 sets, daily range): BP systolic 73–98; BP diastolic 39–63
[2019-04-02 00:06] LABS: URINE BILIRUBIN NEGATIVE (Negative); URINE BLOOD 3+ (Negative); URINE CLARITY CLEAR; URINE COLOR YELLOW; URINE GLUCOSE-RANDOM NEGATIVE (Negative); URINE KETONES NEGATIVE (Negative); URINE LEUKOCYTES-REFLEX 1+ (Negative); URINE NITRITE-REFLEX NEGATIVE (Negative); URINE PROTEIN 2+ (Negative); URINE SPECIFIC GRAVITY 1.025 (1.005-1.030); URINE UROBILINOGEN 0.2 E.U./dl (0.2-1.0)
[2019-04-02 00:22] LABS: BACTERIA-REFLEX >30 Many /HPF (None Seen); CASTS None Seen /LPF (None Seen); MUCUS 4-6 Moderate strn/LPF (None Seen); SQUAMOUS 0-3 Few /LPF (0-3); URINE RBC >20 Many /HPF (0-2); URINE WBC-REFLEX >25 Many /HPF (0-5); WBC CLUMPS Moderate (None Seen)
[2019-04-02 00:23] LABS: CRYSTALS None Seen /LPF (None Seen)
[2019-04-02 00:29] LABS: ABSOLUTE BASOPHILS 0.2 thou/uL (0.0-0.2); ABSOLUTE LYMPHOCYTES 0.6 thou/uL (0.8-5.3); ABSOLUTE MONOCYTES 0.9 thou/uL (0.0-1.2); ABSOLUTE NEUTROPHILS 13.6 thou/uL (1.6-8.1); ANISOCYTOSIS 1+; PLATELET ESTIMATE ADEQUATE; POIKILOCYTOSIS 1+; TOXIC GRANULATION 2+
[2019-04-02 12:20] LABS: BF RBC 3008 /mm3; TOTAL CELL COUNT 414 /mm3
[2019-04-02 12:23] LABS: TOTAL VOLUME 2370 ml
[2019-04-02 12:24] LABS: CLARITY SLIGHTLY HAZY
[2019-04-02 13:20] LABS: BF LYMPHOCYTES 20 %; BF POLYS 80 %; BF TISSUE 25 /100 WBC
[2019-04-02 13:25] LABS: SOURCE PARACENTESIS
[2019-04-02 13:43] LABS: APTT 29.7 Seconds (25.0-31.3); INR 1.1; PROTIME 11.6 Seconds (9.20-11.50)
--- NOTE | 2019-04-02 16:44 | EKG ---
[place] [address] ELECTROCARDIOGRAM REPORT Name: GOLDY DAVISON Room: [address] ADM IN .R.#: [id number] Admission: 04/01/19 Attend Phys: Eran Garrett MD Discharge: Date of : 38 Report #: [id number] THIS REPORT FOR: //name// [facility] ED Test Date: 2019-04-01 Test Time: 23:14:35 Pat Name: GOLDY DAVISON Department: Room: [facility] Gender: F Director Of Provider Relations: [place] : 1940 Requested By: Samantha Bernal Order Number: [id number] : Primo Ta Measurements Intervals [address] Rate: 126 P: [place]: QRS: 20 QRSD: 125 T: 132 QT: 331 QTc: 480 Interpretive Statements Atrial fibrillation LVH with secondary repolarization abnormality Compared to ECG 02/23/2019 05:47:29 Left ventricular hypertrophy now present Electronically Signed On 04-02-2019 16:44:08 CDT by Primo Ta [email or web address] <ELECTRONICALLY SIGNED> By: Primo Ta MD, [facility] 04/02/19 1644 2314 2314 Primo Ta MD, [facility] /EPI
[2019-04-03] VITALS: BP 111/57
[2019-04-03 04:00] VITALS: BP 125/84
[2019-04-03 04:52] LABS: ABSOLUTE BASOPHILS 0.2 thou/uL (0.0-0.2); ABSOLUTE LYMPHOCYTES 1.3 thou/uL (0.8-5.3); ABSOLUTE MONOCYTES 0.8 thou/uL (0.0-1.2); ABSOLUTE NEUTROPHILS 10.6 thou/uL (1.6-8.1); BASOPHILS 1.7 %; EOSINOPHILS 0.2 %; HEMATOCRIT 27.7 % (37.0-47.0); HEMOGLOBIN 8.7 gm/dL (12.0-15.0); LYMPHOCYTES 10.4 %; MCH 31.3 pg (26.0-34.0); MCHC 31.4 g/dL (28.0-37.0); MCV 99.8 fL (80.0-100.0); MONOCYTES 6.5 %; MPV 9.2 fl. (7.2-11.1); NUCLEATED RBCS 1 /100WBC; PLATELET COUNT* 159 thou/uL (150-400); POLYS 81.2 %; RBC 2.77 mil/uL (4.20-5.00); RDW-CV 21.9 % (10.5-14.5)
[2019-04-03 05:01] LABS: ALBUMIN 2.8 g/dL (3.4-5.0); CALCIUM 8.5 mg/dL (8.5-10.1); CREATININE 1.2 mg/dL (0.6-1.3); POTASSIUM 5.1 mmol/L (3.5-5.1); TOTAL BILIRUBIN 0.7 mg/dL (<0.1-1.0); TOTAL PROTEIN 6.3 g/dL (6.4-8.2)
[2019-04-03 08:00] VITALS: BP 101/56
[2019-04-03 12:00] VITALS: BP 86/48
[2019-04-03 17:33] VITALS: BP 76/46
[2019-04-03 20:00] VITALS: BP 75/30
[2019-04-04] VITALS: BP 85/41
[2019-04-04 04:00] VITALS: BP 79/45
[2019-04-04 04:24] LABS: HEMATOCRIT 28.1 % (37.0-47.0); HEMOGLOBIN 8.7 gm/dL (12.0-15.0); MCH 31.2 pg (26.0-34.0); MCV 100.6 fL (80.0-100.0); MPV 9.1 fl. (7.2-11.1); NUCLEATED RBCS 1 /100WBC; PLATELET COUNT* 154 thou/uL (150-400); RBC 2.79 mil/uL (4.20-5.00); RDW-CV 22.3 % (10.5-14.5); WBC 12.5 thou/uL (4.0-11.0)
[2019-04-04 04:32] LABS: CALCIUM 8.2 mg/dL (8.5-10.1); CREATININE 1.3 mg/dL (0.6-1.3); MAGNESIUM 2.2 mg/dL (1.8-2.4); POTASSIUM 4.3 mmol/L (3.5-5.1)
[2019-04-04 05:45] LABS: ABSOLUTE BASOPHILS 0.3 thou/uL (0.0-0.2); ABSOLUTE MONOCYTES 1.1 thou/uL (0.0-1.2); ABSOLUTE NEUTROPHILS 10.1 thou/uL (1.6-8.1); ANISOCYTOSIS 2+; ATYPICAL LYMPHS 1 %; POLYCHROMASIA 1+
[2019-04-04 05:47] LABS: PLATELET ESTIMATE ADEQUATE
[2019-04-04 05:48] LABS: OVALOCYTES Occasional; TEARDROPS Occasional
[2019-04-04 08:00] VITALS: BP 97/58
[2019-04-04] MEDS ORDERED: LANOXIN125 MCG PO (12:17)
[2019-04-04 12:31] VITALS: BP 88/63
[2019-04-04 16:47] VITALS: BP 88/49
[2019-04-04 20:10] VITALS: BP 87/39
[2019-04-05] VITALS (7 sets, daily range): BP systolic 81–89; BP diastolic 26–62
[2019-04-05 04:30] LABS: ABSOLUTE BASOPHILS 0.2 thou/uL (0.0-0.2); ABSOLUTE LYMPHOCYTES 1.2 thou/uL (0.8-5.3); ABSOLUTE MONOCYTES 0.7 thou/uL (0.0-1.2); ABSOLUTE NEUTROPHILS 9.6 thou/uL (1.6-8.1); BASOPHILS 1.5 %; EOSINOPHILS 0.3 %; HEMATOCRIT 26.8 % (37.0-47.0); HEMOGLOBIN 8.4 gm/dL (12.0-15.0); LYMPHOCYTES 10.3 %; MCH 31.2 pg (26.0-34.0); MCHC 31.3 g/dL (28.0-37.0); MCV 99.9 fL (80.0-100.0); MONOCYTES 6.1 %; MPV 9.1 fl. (7.2-11.1); NUCLEATED RBCS 1 /100WBC; PLATELET COUNT* 152 thou/uL (150-400); POLYS 81.8 %; RBC 2.68 mil/uL (4.20-5.00); RDW-CV 21.8 % (10.5-14.5); WBC 11.7 thou/uL (4.0-11.0)
[2019-04-05 04:57] LABS: ALBUMIN 2.8 g/dL (3.4-5.0); CALCIUM 7.7 mg/dL (8.5-10.1); CREATININE 1.1 mg/dL (0.6-1.3); POTASSIUM 4.6 mmol/L (3.5-5.1); TOTAL BILIRUBIN 0.5 mg/dL (<0.1-1.0); TOTAL PROTEIN 6.3 g/dL (6.4-8.2)
[2019-04-05 05:06] LABS: APTT 28.9 Seconds (25.0-31.3); INR 1.1; PROTIME 11.3 Seconds (9.20-11.50)
[2019-04-06] VITALS: BP 94/45
[2019-04-06 04:00] VITALS: BP 88/38
[2019-04-06 05:23] LABS: ABSOLUTE BASOPHILS 0.2 thou/uL (0.0-0.2); ABSOLUTE LYMPHOCYTES 1.2 thou/uL (0.8-5.3); ABSOLUTE MONOCYTES 0.8 thou/uL (0.0-1.2); ABSOLUTE NEUTROPHILS 9.8 thou/uL (1.6-8.1); BASOPHILS 1.4 %; EOSINOPHILS 0.4 %; HEMATOCRIT 28.6 % (37.0-47.0); HEMOGLOBIN 8.9 gm/dL (12.0-15.0); LYMPHOCYTES 10.3 %; MCH 30.8 pg (26.0-34.0); MCHC 31.1 g/dL (28.0-37.0); MCV 99.2 fL (80.0-100.0); MONOCYTES 6.3 %; MPV 9.2 fl. (7.2-11.1); NUCLEATED RBCS 1 /100WBC; PLATELET COUNT* 153 thou/uL (150-400); POLYS 81.6 %; RBC 2.88 mil/uL (4.20-5.00); WBC 12.1 thou/uL (4.0-11.0)
[2019-04-06 05:35] LABS: ALBUMIN 2.8 g/dL (3.4-5.0); CALCIUM 8.5 mg/dL (8.5-10.1); CREATININE 1.1 mg/dL (0.6-1.3); POTASSIUM 4.9 mmol/L (3.5-5.1); TOTAL BILIRUBIN 0.6 mg/dL (<0.1-1.0); TOTAL PROTEIN 6.5 g/dL (6.4-8.2)
[2019-04-06 08:00] VITALS: BP 82/49
[2019-04-06 12:18] VITALS: BP 98/64
[2019-04-06 16:11] VITALS: BP 95/59
[2019-04-06 20:00] VITALS: BP 77/41
[2019-04-07] VITALS: BP 77/32
[2019-04-07 04:00] VITALS: BP 90/38
[2019-04-07 08:00] VITALS: BP 82/58
[2019-04-07 11:30] VITALS: BP 94/52
[2019-04-07] MEDS ORDERED: MIDODRINE HCL 55 M1 PO (14:34)
[2019-04-07] MEDS ORDERED: NEXIUM40 MG PO (14:34)
[2019-04-07] MEDS ORDERED: CEFDINIR300 MG PO (14:35)
[2019-04-07] MEDS ORDERED: LACTULOSE20 GM/30 M PO (14:42)
== END 2019-04-07 16:20 | disposition home health service (06) | DRG 871 ==
LOC: M.ERS 22:04 → M.TBA-ER 23:52 → M.2W 23:52
PROVIDERS: Family Medicine; Personal Emergency Response Attendant; ADMIT Internal Medicine
PROC: 0W9G3ZZ Drainage of Peritoneal Cavity, Percutaneous Approach (ICD-10-PCS; principal; 2019-04-02)
DX: A41.9 Sepsis, unspecified organism (principal); J96.00 Acute respiratory failure, unspecified whether with hypoxia or hypercapnia; I50.23 Acute on chronic systolic (congestive) heart failure; E43 Unspecified severe protein-calorie malnutrition; D68.59 Other primary thrombophilia; R18.8 Other ascites; C95.90 Leukemia, unspecified not having achieved remission; I42.9 Cardiomyopathy, unspecified; N39.0 Urinary tract infection, site not specified; K76.6 Portal hypertension; E72.20 Disorder of urea cycle metabolism, unspecified; Z68.1 Body mass index [BMI] 19.9 or less, adult; I13.0 Hypertensive heart and chronic kidney disease with heart failure and stage 1 through stage 4 chronic kidney disease, or unspecified chronic kidney disease; I85.10 Secondary esophageal varices without bleeding; K74.69 Other cirrhosis of liver; E03.9 Hypothyroidism, unspecified; I48.91 Unspecified atrial fibrillation; D63.1 Anemia in chronic kidney disease; B96.20 Unspecified Escherichia coli [E. coli] as the cause of diseases classified elsewhere; D46.9 Myelodysplastic syndrome, unspecified; N18.3 Chronic kidney disease, stage 3 (moderate); Z88.6 Allergy status to analgesic agent; Z88.0 Allergy status to penicillin; Z88.2 Allergy status to sulfonamides; Z79.899 Other long term (current) drug therapy; Z66 Do not resuscitate

== ENCOUNTER 2019-05-25 02:49 | Inpatient (IN) | payer MEDICARE, MEDICAID ==
[2019-05-25] VITALS (46 sets, daily range): BP systolic 69–167; BP diastolic 25–143
[~2019-05-25] VITALS: Ht 165.1 cm; Wt 45.4 kg
[~2019-05-25 02:49] MED LIST changes: +ALDACTONE50 MG PO; +LANOXIN125 MCG PO; +LASIX 20 MG TAB20 MG PO; +NEXIUM40 MG PO
[2019-05-25 03:31] LABS: CALCIUM 8.7 mg/dL (8.5-10.1); CREATININE 2.1 mg/dL (0.6-1.3); POTASSIUM 4.3 mmol/L (3.5-5.1)
[2019-05-25 03:34] LABS: BE -2.4 mmol/L (-2 to +3); PCO2 35.1 mmHg (35.0-45.0); PO2 83.8 mmHg (75.0-100.0); pH 7.408 (7.340-7.450)
[2019-05-25 03:35] LABS: ALBUMIN 2.8 g/dL (3.4-5.0); MAGNESIUM 2.6 mg/dL (1.8-2.4); TOTAL BILIRUBIN 1.2 mg/dL (<0.1-1.0); TOTAL PROTEIN 6.8 g/dL (6.4-8.2)
[2019-05-25 03:43] LABS: HEMATOCRIT 41.2 % (37.0-47.0); HEMOGLOBIN 12.5 gm/dL (12.0-15.0); MCHC 30.3 g/dL (28.0-37.0); MCV 92.5 fL (80.0-100.0); MPV 9.3 fl. (7.2-11.1); NUCLEATED RBCS 1 /100WBC; PLATELET COUNT* 108 thou/uL (150-400); RBC 4.46 mil/uL (4.20-5.00); RDW-CV 21.5 % (10.5-14.5); WBC 13.7 thou/uL (4.0-11.0)
[2019-05-25 04:02] LABS: URINE BILIRUBIN NEGATIVE (Negative); URINE BLOOD 3+ (Negative); URINE CLARITY CLEAR; URINE COLOR YELLOW; URINE GLUCOSE-RANDOM NEGATIVE (Negative); URINE KETONES NEGATIVE (Negative); URINE LEUKOCYTES-REFLEX 1+ (Negative); URINE NITRITE-REFLEX NEGATIVE (Negative); URINE PROTEIN 1+ (Negative); URINE UROBILINOGEN 0.2 E.U./dl (0.2-1.0)
[2019-05-25 04:06] LABS: NT-PRO BRAIN NAT PEPTIDE 21398 pg/mL (<300); TROPONIN-I LEVEL <0.06 ng/mL (<0.06)
[2019-05-25 04:26] LABS: ABSOLUTE BASOPHILS 0.3 thou/uL (0.0-0.2); ABSOLUTE LYMPHOCYTES 2.3 thou/uL (0.8-5.3); ABSOLUTE MONOCYTES 0.5 thou/uL (0.0-1.2); ABSOLUTE NEUTROPHILS 10.5 thou/uL (1.6-8.1); ATYPICAL LYMPHS 2 %; METAMYELOCYTES 1 %; PLATELET ESTIMATE DECREASED
[2019-05-25 04:27] LABS: ANISOCYTOSIS 2+; OVALOCYTES 1+; POLYCHROMASIA 1+
[2019-05-25 04:28] LABS: TEARDROPS Occasional
[2019-05-25 04:30] LABS: SQUAMOUS >10 Many /LPF (0-3)
[2019-05-25 04:31] LABS: CASTS None Seen /LPF (None Seen); URINE WBC-REFLEX 6-15 Few /HPF (0-5)
[2019-05-25 04:32] LABS: CRYSTALS None Seen /LPF (None Seen); URINE RBC 3-10 Few /HPF (0-2)
--- NOTE | 2019-05-25 05:27 | NUR ---
LEFT SUBCLAVIAN TRIPLE LUMEN CENTRAL LINE PLACED PER DR CHOE. LINE CLEARED TO USE VIA LINE PALCEMENT PER XRAY. DR CHOE OKD USE OF LINE
[2019-05-25 06:03] LABS: APTT 31.3 Seconds (25.0-31.3); INR 1.5; PROTIME 15.2 Seconds (9.20-11.50)
--- NOTE | 2019-05-25 10:31 | NUR ---
ICU rounds: Pt admitted from home, Pt stopped taking her digoxin. Cardiology following. Dtr in room and provided hx. Pt resides at home with her , 3 dtrs, son and grandson. Family assists Pt with both ADLs and IADLs. Pt ambulates with a walker. Pt has a wc, lift chair, commode and grab bars. Pt wears home o2 continuously provided through [facility]. Hx of [facility]. Hx of acute rehab. No hx of skilled. Dtr and son are Pt's paid caregivers through her [facility], through [facility] [phone]. Per dtr, goal is for Pt to return home, Pt and family do not want HH at dc. Following for dc needs.
[2019-05-25 10:40] LABS: URINE POTASSIUM-RANDOM 17.1 mmol/L
--- NOTE | 2019-05-25 10:59 | NUR ---
PATIENT ALERT AND ORIENTED FAMILY AT BEDSIDE PT MOANING BUT DENIES PAIN. SITS ON SIDE OF BED AND LAYS ON SIDE FREQUENTLY. TAKING PO WELL. HEART RATE DECREASED AFTER INITIAL DIG DOSE GIVEN. SEE FLOW SHEET. PROGRESSING SLOWLY. ASKED DAUGHTER DPOA WHY DIGOXIN WAS STOPPED SAID IT WAS DUE TO CONCERNS ABOUT TOXICITY. I ASKED IF THEY WERE TAUGHT VISIBLE SIGNS OF TOXICITY. SAID SHE DIDNT KNOW.
--- NOTE | 2019-05-25 15:02 | EKG ---
[place] [address] ELECTROCARDIOGRAM REPORT Name: GOLDY DAVISON Room: [address] IN [facility].#: [id number] Admission: 05/25/19 Attend Phys: Boyd DeP az Discharge: Date of : 38 Report #: [id number] THIS REPORT FOR: //name// [facility] ED Test Date: 2019-05-25 Test Time: 03:08:21 Pat Name: GOLDY DAVISON Department: Room: Gender: F Filling Carrier: : 1940 Requested By: Order Number: [id number] Ari MD: Titus Bates Measurements Intervals [place] Rate: 121 P: [place]: QRS: 64 QRSD: 143 T: QT: 374 QTc: 531 Interpretive Statements Atrial fibrillation Possible left ventricular hypertrophy Anterior Q waves, possibly due to LVH Prolonged QT interval Baseline wander in lead(s) V2 Compared to ECG 04/01/2019 23:14:35 Q waves now present Prolonged QT interval now present Early repolarization no longer present Electronically Signed On 05-25-2019 15:02:29 CDT by Titus Bates [email or web address] <ELECTRONICALLY SIGNED> By: Titus Bates MD, FACC 05/25/19 1502 0308 0308 Titus Bates MD, [facility] /EPI
--- NOTE | 2019-05-25 16:23 | NUR ---
PATIENT STILL DENIES PAIN BUT TENDER TO TOUCH. HAD MEDIUM BM. COVERED HEALING WOUND ON LT GLUTEAL WITH SOFT DRESSING. HR STILL REMAINS BELOW 120 LEVO GOING AT 4.
[2019-05-26] VITALS (33 sets, daily range): BP systolic 78–120; BP diastolic 42–76
[2019-05-26 05:02] LABS: HEMATOCRIT 36.5 % (37.0-47.0); HEMOGLOBIN 11.5 gm/dL (12.0-15.0); MCH 28.1 pg (26.0-34.0); MCHC 31.4 g/dL (28.0-37.0); MCV 89.6 fL (80.0-100.0); RBC 4.08 mil/uL (4.20-5.00); RDW-CV 20.9 % (10.5-14.5); WBC 9.7 thou/uL (4.0-11.0)
[2019-05-26 05:21] LABS: INR 1.3; PROTIME 12.9 Seconds (9.20-11.50)
[2019-05-26 05:30] LABS: ALBUMIN 2.6 g/dL (3.4-5.0); CALCIUM 8.1 mg/dL (8.5-10.1); CREATININE 1.8 mg/dL (0.6-1.3); MAGNESIUM 1.9 mg/dL (1.8-2.4); POTASSIUM 3.8 mmol/L (3.5-5.1); TOTAL BILIRUBIN 1.1 mg/dL (<0.1-1.0); TOTAL PROTEIN 5.7 g/dL (6.4-8.2)
--- NOTE | 2019-05-26 05:35 | NUR ---
VSS. DOBUTAMINE AND LEVOPHED GTTS INFUSING ORDERED. PT HAS DENIED PAIN AND SOA THIS SHIFT. ASSISTED TO BSC X3 TONIGHT WITH MODERATE ASSISTANCE, VERY SMALL BM EACH TIME. PT REPOSITIONED Q1-2HR THROUGHOUT THE NIGHT. CALL LIGHT WITHIN REACH.
--- NOTE | 2019-05-26 09:36 | CON ---
[address] [address] CONSULTATION Name: GOLDY DAVISON Room: [address] IN .R.#: [id number] Admission: 05/25/19 Attend Phys: Boyd De Paz Discharge: Date of : 38 Report #: [id number] THIS REPORT FOR: //name// CC: Ana Swann INDICATION: Acute on chronic combined heart failure exacerbation. HISTORY OF PRESENT ILLNESS: The patient is a very pleasant 78-year-old female who was admitted to the hospital with congestive heart failure exacerbation. She has shortness of breath and orthopnea. She has evidence of volume overload. She has a long history of nonischemic cardiomyopathy and more recently development of chronic atrial fibrillation. With her heart failure, she has had episodes of volume overload including pulmonary vascular congestion as well as ascites. She has cirrhosis contributing to her ascites and also contributing to esophageal varices with some gastrointestinal bleeding in the past. Echocardiogram shows a dilated left ventricle with an EF estimated to be approximately 30%. The patient's treatment has been complicated by chronic hypotension. She has been unable to tolerate ELI inhibitors or beta blockers. She is on midodrine for pressure support. PAST MEDICAL HISTORY: 1. Chronic combined heart failure. 2. Portal hypertension. 3. Myelodysplasia. 4. Anemia. 5. Chronic atrial fibrillation. 6. Hypothyroidism. PAST SURGICAL HISTORY: Appendectomy and tonsillectomy as a child. ALLERGIES: CODEINE, PENICILLIN, SULFA. HOME MEDICATIONS: Vitamin D 1000 units daily, furosemide 20 mg daily, levothyroxine 200 mcg daily, midodrine 15 mg t.i.d., spironolactone 50 mg daily. SOCIAL HISTORY: The patient is a lifelong nonsmoker. She does not drink alcohol. FAMILY HISTORY: Noncontributory. PHYSICAL EXAMINATION: VITAL SIGNS: Blood pressure 82/55, pulse is in the 120s and irregular. GENERAL: This is a thin elderly female who appears chronically fatigued. HEENT: Head is normocephalic, atraumatic. [place] [id number] CONSULTATION Name: GOLDY DAVISON Room: [address] IN [facility]#: [id number] Admission: 05/25/19 Attend Phys: Boyd De Paz Discharge: Date of : 38 Report #: [id number] muscles intact. Mucous membranes moist. NECK: Shows jugular venous distention. There are no carotid bruits. CHEST: Reveals bilateral rales. CARDIOVASCULAR: Reveals an irregularly irregular rhythm that is tachycardic. I do not appreciate obvious gallop. ABDOMEN: Reveals normal bowel sounds. The abdomen is soft. EXTREMITIES: Shows 1+ edema to the mid tibias bilaterally. LABORATORY DATA: Reviewed. Sodium 135, potassium 4.3, chloride 98, bicarbonate 21, BUN 66, creatinine 2.1, serum glucose 127, AST 30, lipase 41, total bilirubin 1.2, calcium 8.7, phosphorus 4.9, magnesium 2.6, alkaline phosphatase 69, ALT 12, total protein 6.8, albumin 2.8. EGFR 23. Ammonia level 45. Lactic acid 1.8, total LDH 258. Total CPK 20. Troponin less than 0.06 on 2 separate occasions. NT-proBNP 21,398. Digoxin level pending. White blood cell count 13.7, hemoglobin 12.5, platelet count 108,000. Chest x-ray shows cardiomegaly and vascular congestion consistent with acute heart failure. IMPRESSION AND RECOMMENDATIONS: 1. Acute on chronic combined heart failure. The patient is on intermittent IV Lasix and IV digoxin for rate control. She is diuresing slightly. At this point in time, I would consider adding dobutamine to facilitate cardiac output. Consider Lasix drip if diuresis slows. Check labs in a.m. She was unable to tolerate a traditional heart failure regimen due to significant hypotension. 2. Atrial fibrillation with rapid ventricular response rate. This is chronic. The patient has been given digoxin, would continue in bolus fashion for rate control. 3. Acute renal failure likely due to hypoperfusion. We will attempt increase perfusion with dobutamine drip. 4. Prognosis is guarded. <ELECTRONICALLY SIGNED> By: Titus Bates MD, FACC 05/26/19 0936 [id number] Bates MD, FACC /nt
--- NOTE | 2019-05-26 10:39 | NUR ---
ICU rounds: Cardiology following, rate is currently controlled. Pt eating better. Plan dc to home once off drips.
--- NOTE | 2019-05-26 11:27 | NUR ---
WOUND CARE NOTE: CONSULT RECEIVED FOR L. ISCHIAL TUBEROSITY NEARLY HEALED. PATIENT PRESENTS WITH TWO HEALING LESIONS TO THE LEFT BUTTOCK. 0.1X0.1X0.1 DISTAL WOUND AND 1X0.2X0.1 PROXIMAL WOUND. SIS-WOUND TO BOTH WITH NEW EPITHELIUM. DRY, YELLOW WOUND BEDS. RECOMMEND BARRIER OINTMENT BID AND PRN INCONTINENCE TURN Q2 HOURS. ENCOURAGE GOOD NUTRTION/HYDRATION FOR WOUND HEALING.
--- NOTE | 2019-05-26 16:37 | NUR ---
PATIENT HAD EVENT OF VTACH PERFORMED VAGAL MANUVERS PT RETURNED TO AFIB. STOPPED DOBUTAMINE PER DR MAN PT ONLY REPORTS SOA NO PAIN NAUSEA OR DIPHORESIS. TURNS FREQUENTLY AND SITS UP.
[2019-05-27] VITALS (57 sets, daily range): BP systolic 55–132; BP diastolic 22–71
[2019-05-27 04:31] LABS: CALCIUM 8.5 mg/dL (8.5-10.1); CREATININE 1.5 mg/dL (0.6-1.3); POTASSIUM 3.8 mmol/L (3.5-5.1)
--- NOTE | 2019-05-27 06:03 | NUR ---
PT. NOT PROGRESSING TOWARDS GOALS. LEVO GTT REMAINS AT 10MCG/MIN. 5L O2. FAMILY AT BEDSIDE THROUGHOUT SHIFT. WILL CONTINUE TO MONITOR.
--- NOTE | 2019-05-27 08:49 | NUR ---
1993 ASSUMED CARE OF PATIENT. PLEASE SEE DOCUMENTED ASSESSMENT. SON AT BEDSIDE. LEVOPHED AND DOBUTAMINE DRIPS CHARTED
--- NOTE | 2019-05-27 10:13 | NUR ---
ICU rounds: Increased Levo. 5L o2. No diet restrictions, Pt is only eat a little.
--- NOTE | 2019-05-27 11:27 | NUR ---
1115 SPONTANEOUS EMESIS OF UNDIGESTED FOOD.MEDICATED FOR NAUSEA
[2019-05-27 12:35] LABS: HEMATOCRIT 37.2 % (37.0-47.0); HEMOGLOBIN 11.9 gm/dL (12.0-15.0); MCH 28.5 pg (26.0-34.0); MCV 89.2 fL (80.0-100.0); MPV 9.3 fl. (7.2-11.1); RBC 4.17 mil/uL (4.20-5.00); RDW-CV 21.3 % (10.5-14.5); WBC 12.8 thou/uL (4.0-11.0)
--- NOTE | 2019-05-27 17:15 | NUR ---
PATIENT NOT PROGRESSING TOWARDS GOALS. EATS VERY LITTLE AND HAD EMESIS AFTER LUNCH,RESOLVED NAUSEA WITH ZOFRAN. NOREPINEPHRINE INCREASED TODAY. OUT OF BED ONCE FOR STOOL ON BSC. FAMILY PRESENT AND ATTENTIVE.
--- NOTE | 2019-05-27 17:58 | EKG ---
[place] [address] ELECTROCARDIOGRAM REPORT Name: GOLDY DAVISON Room: [address] ADM IN M.R.#: [id number] Admission: 05/25/19 Attend Phys: Boyd De Paz Discharge: Date of : 39 Report #: [id number] THIS REPORT FOR: //name// [facility] Test Date: 2019-05-26 Test Time: 11:07:51 Pat Name: GOLDY DAVISON Department: Room: [address] Gender: F Svp Operations: ARPITA : 1940 Requested By: Titus Bates Order Number: [id number] Reading MD: Sheng Correa Measurements Intervals [place] Rate: 103 P: TN: QRS: 93 QRSD: 139 T: -86 QT: 382 QTc: 500 Interpretive Statements Atrial fibrillation Consider left ventricular hypertrophy Possible Lateral infarct, acute (LAD) Prolonged QT interval Compared to ECG 05/25/2019 03:08:21 Myocardial infarct finding now present Q waves no longer present Electronically Signed On 05-27-2019 17:57:40 CDT by Sheng Correa [email or web address] <ELECTRONICALLY SIGNED> By: Franko Correa MD, [facility] 05/27/19 1757 1107 [id number] Franko Correa MD, [facility] /EPI
[2019-05-28] VITALS (71 sets, daily range): BP systolic 67–113; BP diastolic 27–68
[2019-05-28 09:39] LABS: CALCIUM 8.3 mg/dL (8.5-10.1); CREATININE 1.4 mg/dL (0.6-1.3); POTASSIUM 4.2 mmol/L (3.5-5.1)
--- NOTE | 2019-05-28 10:28 | NUR ---
ICU rounds: ESLD, very distended today. Continue Levo and Dobutamine. Tan in place
[2019-05-29] VITALS (65 sets, daily range): BP systolic 80–115; BP diastolic 39–74
--- NOTE | 2019-05-29 05:45 | NUR ---
VITALS STABLE, AFEBRILE. LEVO GTT RUNNING AT 25 MCG/MIN AT THIS TIME, UP FROM 18 MCG/MIN AT THE BEGINNING OF SHIFT. AFIB ON THE MONITOR WITH HR B/N 80-120s. MAIN COMPLAINT IS BODY ITCHING, REPORTS THIS IS FROM HER LEUKEMIA AND MEDICATIONS DON'T HELP. OTHERWISE UNEVENTFUL NIGHT, SLEEPS INTERMITTENTLY. DENIES PAIN. UOP 1000 CC, NO BM. Q2 TURNS FOR SKIN INTEGRITY. CALL LIGHT WITHIN REACH.
[2019-05-30] VITALS (47 sets, daily range): BP systolic 73–105; BP diastolic 27–73
[2019-05-30 04:28] LABS: HEMATOCRIT 36.6 % (37.0-47.0); HEMOGLOBIN 11.7 gm/dL (12.0-15.0); MCH 27.8 pg (26.0-34.0); MCV 86.9 fL (80.0-100.0); MPV 8.9 fl. (7.2-11.1); RBC 4.21 mil/uL (4.20-5.00); RDW-CV 21.4 % (10.5-14.5); WBC 13.5 thou/uL (4.0-11.0)
[2019-05-30 04:44] LABS: CALCIUM 8.2 mg/dL (8.5-10.1); CREATININE 1.2 mg/dL (0.6-1.3); POTASSIUM 4.1 mmol/L (3.5-5.1)
--- NOTE | 2019-05-30 06:21 | NUR ---
PT MAXED ON LEVO GTT AT THIS TIME, BUT WAS ON 27 MCG/MIN THROUGH MOST OF THE NIGHT. DENIES PAIN, BUT VERY UNCOMFORTABLE. UNABLE TO GET MUCH SLEEP. HR MOSTLY B/N 110-130 BPM. BM X1, 900 CC UOP. Q2 TURNS FOR SKIN INTEGRITY. CALL LIGHT WITHIN REACH.
--- NOTE | 2019-05-30 07:43 | NUR ---
NOTE 05/29 SHIFT- PT ALERT AND CONFUSED AT TIMES, PT ASK TO BE PUT BACK INTO BED WHEN SHE WAS ALREADY IN BED. DR GARIBAY HAD A LENGTHY DISCUSSION WITH PT, SON AND REGARDING POOR PROGNOSIS. FURTHER OPTIONS INCUDING HOSPICE, TURNING OFF PRESSORS VERSUS TITRATING DOWN PRESSORS. LOTS OF FAMILY VISITING TODAY. DURING JONATHAN DISCUSSION, PT VERBALIZED, TO SON AND . "I'M AT [facility], IT'S OKAY". PT REMAINS ON LEVOPHED 25MCG, DOBUTAMINE 2.5MCG, VITAL SIGNS DOCUMENTED, WILL MONITOR CLOSELY.
--- NOTE | 2019-05-30 17:30 | NUR ---
DR GARIBAY TALKED TO THE FAMILY REGARDING COMFORT CARE, FAMILY WANTS TO CONTINUE THE SAME TREATMENT AND NO COMFORT CARE FOR NOW. PT BECOMING LESS RESPONSIVE AND DROWSY. ON MAX SUPPORT OF LEVOPHED. DOBUTAMINE AT 2.5 MCG/KG/MIN. NO OTHER PRESSORS TO BE ADDED PER CARDIOLOGY. ATE 30-40% OF HER BREAKFAST BUT REFUSED LUNCH AND DINNER. FAMILY WITH THE PATIENT THE WHOLE TIME. ON O2 SUPPORT OF NC 5L/MIN. A FIB 120-140s ON THE MONITOR.
[2019-05-31] VITALS (62 sets, daily range): BP systolic 64–111; BP diastolic 14–72
[2019-05-31 03:21] LABS: HEMATOCRIT 29.4 % (37.0-47.0); MCH 28.7 pg (26.0-34.0); MCHC 32.7 g/dL (28.0-37.0); MCV 87.7 fL (80.0-100.0); MPV 8.9 fl. (7.2-11.1); RBC 3.36 mil/uL (4.20-5.00); RDW-CV 21.6 % (10.5-14.5)
[2019-05-31 03:24] LABS: HEMOGLOBIN 9.6 gm/dL (12.0-15.0)
[2019-05-31 03:45] LABS: CALCIUM 8.2 mg/dL (8.5-10.1); CREATININE 1.2 mg/dL (0.6-1.3); POTASSIUM 4.2 mmol/L (3.5-5.1)
--- NOTE | 2019-05-31 11:04 | NUR ---
SPOKE WITH DR. GARIBAY, HE SAID HE TALKED WITH , SON, AND DTR OVER THE WEEKEND ABOUT PATIENT'S CONDITION. HE SAID FAMILY BECAME UPSET WHEN HE MENTIONED HOSPICE, BUT IF HE USED THE WORD COMFORT CARE, THEY SEEMED MORE RECEPTIVE. SPOKE WITH SON AT BEDSIDE AFTER HE SPOKE WITH DR. GARIBAY THIS MORNING. HE SAID HE WILL TALK WITH HIS FATHER AND OTHER FAMILY MEMBERS, HE SAID IF IT DIDN'T MEAN THAT SHE WOULD IMMEDIATELY BECOME COMATOSE, FAMILY MIGHT BE OPEN TO TAKING HER HOME 'TO KEEP HER COMFORTABLE, IF WE COULD HAVE THE OXYGEN AND EVERYTHING THAT WE NEED.' TOLD HIM THAT WE COULD SET UP A MEETING WITH WHATEVER FAMILY MEMBERS TO DISCUSS FURTHER. DID BRIEFLY MENTION TO HIM THAT HOSPICE WOULD BE THE SERVICE THAT COULD HELP KEEP HER COMFORTABLE AT HOME, BUT THE FAMILY COULD DETERMINE HOW MUCH PRESENCE THEY WANTED HOSPICE TO HAVE IN THE HOME. SON SEEMED RECEPTIVE TO THAT, ASSURED HIM THAT HOSPICE DIDN'T MEAN HOSPICE WOULD COME IN AND TAKE OVER. PT CURRENTLY ON TWO PRESSORS, WITH A THIRD ORDERED IF NEEDED. DR. GARIBAY EXPLAINED TO THE SON THAT HIS GOAL WAS TO TRY AND TITRATE PT OFF THE PRESSORS, NOT HAVING TO ADD MORE.
--- NOTE | 2019-05-31 20:08 | NUR ---
PT'S APPETITE BETTER THAN YESTERDAY. LEVOPHED TITRATED DOWN TO 26 MCG/MIN. ON HEATED HIGH FLOW OXYGEN SUPPORT, TITRATED BY RT. TURNS HERSELF. HAD 3 EPISODES OF BM, SOFT AND FORMED. GETS UPTO THE BSC WITH MIN ASSIST.
[2019-06-01] VITALS (22 sets, daily range): BP systolic 70–125; BP diastolic 30–101
[2019-06-01 11:43] LABS: HEMATOCRIT 23.1 % (37.0-47.0); HEMOGLOBIN 7.5 gm/dL (12.0-15.0); MCH 28.3 pg (26.0-34.0); MCHC 32.4 g/dL (28.0-37.0); MCV 87.3 fL (80.0-100.0); MPV 8.1 fl. (7.2-11.1); NUCLEATED RBCS 0 /100WBC; PLATELET COUNT* 63 thou/uL (150-400); RBC 2.65 mil/uL (4.20-5.00); RDW-CV 21.4 % (10.5-14.5); WBC 6.3 thou/uL (4.0-11.0)
[2019-06-01 12:17] LABS: ALBUMIN 2.4 g/dL (3.4-5.0); CREATININE 1.2 mg/dL (0.6-1.3); POTASSIUM 4.7 mmol/L (3.5-5.1); TOTAL BILIRUBIN 0.5 mg/dL (<0.1-1.0); TOTAL PROTEIN 5.7 g/dL (6.4-8.2)
[2019-06-01 13:06] LABS: ABSOLUTE EOSINOPHILS 0.1 thou/uL (0.0-0.7); ABSOLUTE MONOCYTES 0.3 thou/uL (0.0-1.2); OVALOCYTES 2+; PLATELET ESTIMATE DECREASED
[2019-06-01 13:07] LABS: ANISOCYTOSIS 1+; POIKILOCYTOSIS 2+; POLYCHROMASIA 1+
--- NOTE | 2019-06-01 15:33 | NUR ---
ICU rounds: pt nurse discussed target systolic of 80 and discussed that pt and pt family have not yet made any more decisions regarding possible hospice care in the home. SW to continue to follow to assist with safe dc planning and support as needed.
--- NOTE | 2019-06-01 19:40 | NUR ---
R THORACENTESIS COMPLETE AT 1905. PT SLEEPING AT THIS TIME, EASILY AROUSED. DENIES PAIN, REPORTS IMPROVED EASE OF BREATHING. HEATED HI FLOW NC AT 60% FIO2. RR 21, O2 SAT 100%. LUNG SOUNDS CTA, DIMINISHED BILATERALLY, R>L. BANDAGE TO R LOWER BACK C/D/I. FAMILY AT BEDSIDE. CALL LIGHT WITHIN REACH.
[2019-06-01 21:30] LABS: BF RBC 1500249 /mm3; TOTAL CELL COUNT 3750 /mm3
[2019-06-01 21:38] LABS: BF LYMPHOCYTES 2 %; BF MONOCYTES 2 %; BF POLYS 96 %
[2019-06-01 21:39] LABS: CLARITY CLOUDY; SOURCE THORACENTESIS; TOTAL VOLUME 2550 ml
[2019-06-02] VITALS (74 sets, daily range): BP systolic 47–156; BP diastolic 15–129
[2019-06-02 05:38] LABS: ABSOLUTE BASOPHILS 0.3 thou/uL (0.0-0.2); ABSOLUTE LYMPHOCYTES 1.3 thou/uL (0.8-5.3); ABSOLUTE MONOCYTES 1.2 thou/uL (0.0-1.2); ABSOLUTE NEUTROPHILS 10.7 thou/uL (1.6-8.1); EOSINOPHILS 0.3 %; HEMOGLOBIN 8.5 gm/dL (12.0-15.0); LYMPHOCYTES 9.4 %; MCH 28.2 pg (26.0-34.0); MCHC 32.6 g/dL (28.0-37.0); MCV 86.7 fL (80.0-100.0); MONOCYTES 8.9 %; MPV 8.1 fl. (7.2-11.1); NUCLEATED RBCS 0 /100WBC; PLATELET COUNT* 112 thou/uL (150-400); POLYS 79.4 %; RDW-CV 21.7 % (10.5-14.5); WBC 13.4 thou/uL (4.0-11.0)
[2019-06-02 05:57] LABS: PREALBUMIN 8.7 mg/dL (18.0-35.7)
[2019-06-02 05:58] LABS: ALBUMIN 2.4 g/dL (3.4-5.0); CREATININE 1.1 mg/dL (0.6-1.3); POTASSIUM 4.8 mmol/L (3.5-5.1); TOTAL BILIRUBIN 0.6 mg/dL (<0.1-1.0); TOTAL PROTEIN 5.8 g/dL (6.4-8.2)
--- NOTE | 2019-06-02 10:35 | NUR ---
ICU rounds: Pt changed code status to DNR. Pt is refusing comfort care however and pt/pt family continue to be resistant to hospice services. SW/CM to continue to follow to assist and support as needed.
--- NOTE | 2019-06-02 10:37 | CON ---
[address] [address] CONSULTATION Name: GOLDY DAVISON Room: [address] IN .R.#: [id number] Admission: 05/25/19 Attend Phys: Boyd De Paz Discharge: Date of : 38 Report #: [id number] THIS REPORT FOR: //name// CC: Ana Swann DATE OF SERVICE: 06/01/2019 ATTENDING PHYSICIAN: Eran Garrett MD LOCATION: ICU bed #3. INDICATION FOR CONSULTATION: Acute hypoxic respiratory failure, end-stage liver disease, multisystem failure. HISTORY OF PRESENT ILLNESS: The patient is a 78-year-old female, prior smoker with multiple medical problems. The patient was admitted to the hospital last week with possible pneumonia on the right lung. She has had sepsis. She has had multiple medical problems including atrial fibrillation and hypotension. She is now on 2 pressors. She has a history of end-stage liver disease with cirrhosis, varices and portal hypertension. She is not a liver transplant candidate. The patient has been on high flow O2 since this morning, I was consulted this afternoon to see her for hypoxemia. She has a weak cough. She is lying at the bedside and the Interventional Radiology is trying to going to come and see if they can tap off some fluid from her right lung, I am not sure it is going to make any improvement at this time. She has had poor urine output, appears to be at hepatorenal syndrome. She is alert. She can talk in a couple words about half sentences, she is lying in bed. She denies any pain. States she is short of breath, just does not feel well. She is weak and frail. PAST MEDICAL HISTORY: Again, atrial fibrillation with RVR, myelofibrosis in the past, diastolic and systolic congestive heart failure. She has had end-stage liver disease with end-stage liver failure with a history of cirrhosis, varices and portal hypertension. Again, she is not a liver transplant candidate. She has had ATN in the past. Also, recently, she is on high-flow oxygen, she is on 2 liters at home. She is not on steroids and nebulizer treatments at home. ALLERGIES: SHE HAS ALLERGIES OR INTOLERANCE TO PENICILLIN, SULFA AND CODEINE. MEDICATIONS: She has had one dose of Lasix like 20 mg p.o. She is on Levophed and dobutamine for pressors. Also, Lanoxin 0.125 mg daily, ceftriaxone 1 g IV piggyback daily, midodrine 15 mg t.i.d., and various replacements from potassium chloride[place] [address] CONSULTATION Name: GOLDY DAVISON Room: [address] IN [facility].#: [id number] Admission: 05/25/19 Attend Phys: Boyd De Paz Discharge: Date of : 38 Report #: [id number] FAMILY HISTORY: Negative for premature cardiopulmonary disease. SOCIAL HISTORY: Supposedly, she is a never smoker, denies any alcohol use. I am not sure what her remote alcohol history is. REVIEW OF SYSTEMS: A 14-point review of systems was attempted, she was not able to do that, she was too dyspneic and not feeling as well. PHYSICAL EXAMINATION: GENERAL: A 78-year-old female, emaciated, chronically ill, doing poorly. I saw her in the ICU, she is getting ready to have a right-sided thoracentesis. VITAL SIGNS: Blood pressure is 113/90 on 2 pressors and midodrine, on 40 liters oxygen high flow, her sats are 95-98%. Her heart rate is 94, respirations are 24-25. She is afebrile. She is 5 feet 3 inches tall, weighs 45 kilograms or 95 pounds, BMI is 16. HEENT: Pupils are midpoint and reactive. She is somewhat jaundiced. Mucous membranes are dry. NECK: No increase in jugular venous pressure. CHEST: Reveals decreased breath sounds, prolonged expiratory phase. Rhonchi are noted bilaterally. She is thin and frail, you can see all of her ribs quite easily. Loss of musculature is noted. CARDIOVASCULAR: Regular rate and rhythm without murmur, gallop or rub. Heart rate is in the 90s. No S3 is noted. ABDOMEN: Soft. Mild liver edge is felt. Some minimal ascites is felt. EXTREMITIES: Trace edema. No cyanosis or clubbing. NEUROLOGIC: She is grossly intact, but she moves all fours to commands, very weak. LABORATORY DATA: Hemoglobin is 7.5, previously was 11.9 with a white count of 6300, MCV was 87, platelets were 28613, normal differential. Sodium is 133, potassium is 4.7, carbon dioxide is 31, BUN is 30, creatinine 1.2, calcium is 8.0 and ALT is normal. Albumin is 2.4. TSH is pending at 1.73. The last set ABGs was about a week ago with a pO2 of 83, pH 7.40, pCO2 is 35, that was on 3 liters and coags were within normal limits. Chest x-ray shows loculated right effusion and right lower lobe infiltrate. Heart size is upper limits of normal. She has some significant effusion, but there is no shift of the mediastinum to the left on her x-ray. This is different from a chest x-ray dated 05/29, which shows small bilateral effusions and looked much improved at that time. She may have had a small right lower lobe infiltrate at that time also. IMPRESSION: 1. Acute hypoxic respiratory failure, multifactorial. 2. Large right pleural effusion, part of this is loculated. Some of this may be [place]elect[place] [address] CONSULTATION Name: LANEYGOLDY Room: [address] IN [facility].#: [id number] Admission: 05/25/19 Attend Phys: Boyd De Paz Discharge: Date of : 38 Report #: [id number] 3. End-stage liver disease with hepatic cirrhosis and varices and ascites. 4. Myelofibrosis. 5. Chronic congestive heart failure. 6. Multisystem disorder and multisystem failure. PLAN: The patient right now is just intubation only, but no CPR, no defibrillation. She is currently on 2 pressors, will try and get her from not being intubated. She is still full code status, so we may have to check her blood gas in the morning and see where she is at. I think she did poorly on the ventilator and we will soon do about helping her out her breathing. I am not sure the thoracentesis will help, but I think it is worth to give a try at this time. If things will get worse, we may try some BiPAP. This has been a 40-minute Critical Care consultation; Dr. Mesa was dictating for follow up while she is in the Intensive Care Unit. Hopefully, she will go to Palliative Care and Hospice, which would be the best situation for this lady. Her daughters have been informed of this. The one oldest daughter I think is still holding now hope that she has reversible disease. <ELECTRONICALLY SIGNED> By: Landry Mesa MD 06/02/19 1037 [id number] Mesa MD /nt
[2019-06-02 15:10] LABS: BODY FLUID PH 7.5 (Not Estab.)
[2019-06-02 15:19] LABS: SOURCE THORACENTESIS
--- NOTE | 2019-06-02 17:42 | NUR ---
PT IS A/O X4,VSS,TRACING AFIB ON THE MONITOR.PT SWITCHED FROM HEATED HIGH FLOW NC TO 7L HIGH FLOW NC.LEFT SUBCLAVIAN TRIPLE LUMEN PATENT WITH LEVOPHED AND DOBUTAMINE INFUSING PER TITRATION ORDERS.GUERRIER SECURE AND PATENT.Q2 HOUR POSITION COMPLETED.PT LEFT RESTING IN BED WITH CALL LIGHT AND FALL PRECAUTIONS IN PLACE.FAMILY AT BEDSIDE.WILL CONTINUE TO MONITOR FOR DURATION OF SHIFT.
[2019-06-02 18:09] LABS: BODY FLUID AMYLASE 24 U/L (()); BODY FLUID LDH 286 IU/L (()); BODY FLUID PROTEIN 4.1 g/dL (())
[2019-06-03] VITALS (61 sets, daily range): BP systolic 59–126; BP diastolic 21–107
[2019-06-03 06:28] LABS: ABSOLUTE BASOPHILS 0.2 thou/uL (0.0-0.2); ABSOLUTE LYMPHOCYTES 0.9 thou/uL (0.8-5.3); ABSOLUTE MONOCYTES 0.7 thou/uL (0.0-1.2); ABSOLUTE NEUTROPHILS 6.4 thou/uL (1.6-8.1); BASOPHILS 2.5 %; EOSINOPHILS 0.3 %; HEMATOCRIT 23.5 % (37.0-47.0); HEMOGLOBIN 7.6 gm/dL (12.0-15.0); LYMPHOCYTES 10.5 %; MCH 28.3 pg (26.0-34.0); MCHC 32.4 g/dL (28.0-37.0); MCV 87.4 fL (80.0-100.0); MONOCYTES 8.2 %; MPV 7.8 fl. (7.2-11.1); NUCLEATED RBCS 0 /100WBC; PLATELET COUNT* 93 thou/uL (150-400); POLYS 78.5 %; RBC 2.69 mil/uL (4.20-5.00); RDW-CV 21.3 % (10.5-14.5); WBC 8.1 thou/uL (4.0-11.0)
[2019-06-03 06:40] LABS: CALCIUM 7.8 mg/dL (8.5-10.1); CREATININE 1.1 mg/dL (0.6-1.3)
--- NOTE | 2019-06-03 10:42 | NUR ---
ICU rounds: Pt now on 8L O2 but still high flow. Dominick. Up with 1. Pt continues to deny comfort care; possible for pt to be able to move from ICU soon.
--- NOTE | 2019-06-03 16:54 | NUR ---
PT IS A/OX4,VSS AT BASELINE.TRACING AFIB ON THE MONITOR.PT TITRATED DOWN TO 6L FROM 8L O2 HIGH FLOW NC THROUGHOUT SHIFT.LEFT SUBCLAVIAN PATENT AND SALINE LOCKED.PT TITRATED OFF OF DOBUTAMINE AND LEVOPHED THIS SHIFT.GUERRIER SECURE AND PATENT.PT HAS HAD SEVERAL SOFT BOWEL MOVEMENTS THROUGHTOUT THE SHIFT.PT SAT UP IN RECLINER THIS AM.PT IS CALM AND COOPERATIVE WITH NO C/O PAIN.PT INFORMED OF PLAN OF CARE AND COMMUNICATES UNDERSTANDING.PT LEFT RESTING IN BED WTIH CALL LIGHT AND FALL PRECAUTIONS IN PLACE.WILL CONTINUE TO MONITOR FOR DURATION OF SHIFT.
[2019-06-04] VITALS (29 sets, daily range): BP systolic 69–93; BP diastolic 28–56
--- NOTE | 2019-06-04 04:59 | NUR ---
OFF LEVOPHED THROUGH THE NIGHT, LOWEST MAP 43, BUT COMES UP ON ITS OWN, MAP STAYS 50s-60s. AFIB ON THE MONITOR, DENIES PAIN. Q2 TURNS FOR SKIN INTEGRITY. CALL LIGHT WITHIN REACH.
--- NOTE | 2019-06-04 07:04 | CON ---
[address] [address] CONSULTATION Name: GOLDY DAVISON Room: [address] IN ..#: [id number] Admission: 05/25/19 Attend Phys: Boyd De Paz Discharge: Date of : 38 Report #: [id number] THIS REPORT FOR: //name// CC: Ana Swann DATE OF SERVICE: 06/03/2019 INFECTIOUS DISEASE CONSULTATION ATTENDING PHYSICIAN: Dr. Swann. REASON FOR EVALUATION: Complicated pleural effusion consistent with exudate in the setting of chronic respiratory failure and pneumonitis. HISTORY OF PRESENT ILLNESS: Chart reviewed, the patient examined. This is a 78-year-old with extensive medical history that is felt to be myeloproliferative disorder, also end-stage liver disease, cirrhosis, has been hospitalized at least 4 times this year, presented with progressive dyspnea and felt to have generalized overall fluid retention, has been associated with worsening nutritional status and renal failure. Due to the complex nature of illness and the severity, has been in the ICU for a number of days. Did undergo a thoracentesis on 06/01/2019, drained 2200 mL of dark red bloody effusion, had a total white count of 3750, 96% polys, pH was 7.5, glucose was 97, protein was 4.1. Cultures are pending. She has been empirically treated with ceftriaxone. She remains quite chronically ill. She is accompanied by her family. She is lying in left lateral decubitus position. Per their opinion, appetite has been reasonable. Does have ongoing issues with dyspnea, she has had 3 liters, nasal cannula being maintained. She has been on pressor support, although it has been weaned from 30 down to 4 with the norepinephrine. ALLERGIES: PENICILLIN, SULFA, and CODEINE. CURRENT MEDICATIONS: Include hydrocortisone, norepinephrine, ceftriaxone, midodrine, cholecalciferol, levothyroxine, and pantoprazole. PAST MEDICAL HISTORY: As described above with a myeloproliferative disorder, cardiomyopathy, congestive heart failure, end-stage liver disease, and hypothyroidism. SOCIAL HISTORY: Nonsmoker. No ethanol. No illicit drug use. FAMILY HISTORY: Noncontributory. REVIEW OF SYSTEMS: Somewhat limited due to her lethargy [place] [address] CONSULTATION Name: GOLDY DAVISON Ethan Room: [address]#: [id number] Admission: 05/25/19 Attend Phys: Boyd De Paz Discharge: Date of : 38 Report #: [id number] PHYSICAL EXAMINATION: VITAL SIGNS: Temperature 97.1, pulse 101, respirations 21, and blood pressure 70-88/in low 50s. GENERAL: She appears chronically ill, undernourished. Again noted in the left lateral decubitus position. She has got nasal cannula oxygen in place. HEENT: Normocephalic. NECK: Supple. LUNGS: Scattered coarse breath sounds. HEART: Regular. Borderline tachycardic. ABDOMEN: Soft. There are no apparent peritoneal signs. GENITOURINARY AND RECTAL: Deferred. LABORATORY DATA: Pathology reported on the fluid showed negative for malignant cells. Prealbumin of 8.2. Electrolytes: Sodium 135, potassium 4.0, chloride 101, bicarbonate is 30, anion gap of 4, BUN and creatinine 30 and 1.1. CBC: White count of 8.1, H and H 7.6 and 23.5, and platelets of 93. Chest x-ray, marked cardiomegaly, moderate middle and right lower lobe atelectasis and pneumonia, small right pleural effusion. Pleural fluid culture pending. Gram stain showed no organisms, no white cells, pH as described above. Fluid 7.5. ASSESSMENT: Chronic respiratory failure with complicated pneumonitis with effusion post-thoracentesis. I think it is reasonable to broaden antimicrobial coverage pending the results of the culture. She is quite tenuous at this point. It is difficult to ascertain given the severe disease burden, likely it is multifactorial etiology at this point and appear to be loculated over in need of any sort of procedural intervention. Did discuss with the family. Prognosis appears guarded. <ELECTRONICALLY SIGNED> By: Saul Gomez MD 06/04/19 0704 [id number] [id number] Gomez MD /nt
--- NOTE | 2019-06-04 10:26 | NUR ---
PARTICIPATED IN TEAM ROUNDS.
--- NOTE | 2019-06-04 13:30 | NUR ---
PATIENT UP IN ROOM OFF PRESSORS. FAMILY AT BEDSIDE.
--- NOTE | 2019-06-04 14:46 | NUR ---
ICU rounds: Pt down to 6L, off pressors and levo; possible down grade of status in question; pt nurse reported pt seems to present/feel better today.
--- NOTE | 2019-06-04 15:47 | NUR ---
WOUND CARE NOTE: REASSESSMENT OF WOUNDS TO THE LEFT HIP. WOUNDS HAVE HEALED. NEW EPITHELIUM COVERING ENTIRETY OF BOTH WOUND BEDS. WILL SIGN OFF, PLEASE RECONSULT IF NEEDED. RECOMMEND BARRIER OINTMENT BID AND PRN CONTINUE TO OFFLOAD AREA ENCOURAGE GOOD NUTRTION/HYDRATION.
--- NOTE | 2019-06-04 18:24 | NUR ---
PATIENT TAKING PO WELL FAMILY AT BEDSIDE. REMAINS AFIB RATE CONTROLLED. DENIES SOA OR PAIN FREQUENT BMS RECEIVING HOME REMEDIES PER SON.
[2019-06-04 20:13] LABS: SOURCE THORACENTESIS
[2019-06-05] VITALS (26 sets, daily range): BP systolic 77–101; BP diastolic 36–79
[2019-06-05 05:12] LABS: ABSOLUTE BASOPHILS 0.1 thou/uL (0.0-0.2); ABSOLUTE LYMPHOCYTES 0.8 thou/uL (0.8-5.3); ABSOLUTE MONOCYTES 0.5 thou/uL (0.0-1.2); ABSOLUTE NEUTROPHILS 9.6 thou/uL (1.6-8.1); BASOPHILS 0.9 %; EOSINOPHILS 0.2 %; HEMATOCRIT 22.1 % (37.0-47.0); HEMOGLOBIN 7.2 gm/dL (12.0-15.0); LYMPHOCYTES 6.9 %; MCH 28.8 pg (26.0-34.0); MCHC 32.6 g/dL (28.0-37.0); MCV 88.4 fL (80.0-100.0); MONOCYTES 4.1 %; NUCLEATED RBCS 0 /100WBC; PLATELET COUNT* 83 thou/uL (150-400); POLYS 87.9 %; RDW-CV 21.8 % (10.5-14.5); WBC 10.9 thou/uL (4.0-11.0)
[2019-06-05 05:24] LABS: CALCIUM 8.5 mg/dL (8.5-10.1); CREATININE 1.1 mg/dL (0.6-1.3); POTASSIUM 4.7 mmol/L (3.5-5.1)
--- NOTE | 2019-06-05 06:47 | NUR ---
Pt rested well overnight. Family at bedside during early part of shift, then daughter stayed at bedside overnight. Pt up to BSC multiple times for soft BMs. VSS, BP 80s-90s/40s-50s. Remains off levophed/dobutamine gtts. Will continue to monitor.
--- NOTE | 2019-06-05 08:45 | NUR ---
1483 ASSUMED CARE OF PATIENT. PLEASE SEE DOCUMENTED ASSESSMENT. PT IS IN CONTROLLED ATRIAL FIB.
--- NOTE | 2019-06-05 08:45 | NUR ---
HAS BEEN UP TO BS X 2 FOR SOFT FORMED STOOLS. SOA WITH EXERTION.
--- NOTE | 2019-06-05 11:18 | NUR ---
1030 PATIENT IS NOW TELE STATUS. TYPE AND SCREEN DRAWN FOR BLOOD TRANSFUSION.
--- NOTE | 2019-06-05 17:09 | NUR ---
PATIENT PROGRESSING TOWARDS GOALS. PT IS NOW TELEMETRY STATUS. REMAINS OFF OF LEVOPHED DRIP. OXYGEN TITRATED DOWN TO 2LPM. GOOD APPETITE. UP TO BSC MULTIPLE TIMES. REFUSED PHYSICAL THERAPY.AWAITING UNTI OF BLOOD TO TRANSFUSE ORDERED.MULTIPLE FAMILY MEMBERS HAVE VISITED.
[2019-06-06] VITALS: BP 92/57
[2019-06-06 03:39] LABS: HEMATOCRIT 25.9 % (37.0-47.0); HEMOGLOBIN 8.1 gm/dL (12.0-15.0); MCH 28.1 pg (26.0-34.0); MCHC 31.3 g/dL (28.0-37.0); MCV 89.7 fL (80.0-100.0); MPV 8.7 fl. (7.2-11.1); NUCLEATED RBCS 0 /100WBC; PLATELET COUNT* 111 thou/uL (150-400); RBC 2.88 mil/uL (4.20-5.00); RDW-CV 20.9 % (10.5-14.5); WBC 14.6 thou/uL (4.0-11.0)
[2019-06-06 04:00] VITALS: BP 92/58
[2019-06-06 04:00] LABS: % SATURATION 37 % (20-39); IRON 73 ug/dL (50-175)
--- NOTE | 2019-06-06 05:45 | NUR ---
ASSUMED CARE OF PATIENT AT 1900. FAMILY AT BEDSIDE DURING WHOLE SHIFT. ASSESSMENT CHARTED. VSS. PATIENT RECEIVED 1 UNIT PRBC AT START OF SHIFT, NO ADVERSE REACTIONS TO TRANSFUSION. MORNING LABWORK SHOWS IMPROVEMENT. PATIENT'S DAUGHTER ASSISTING PATIENT TO COMODE, 4 LARGE BOWEL MOVEMENTS THIS SHIFT. PROGRESSING TOWARDS GOALS. AT 2100 MED PASS, ADMINISTERED ENOXAPARIN PER PHYSICIAN ORDER. AFTER ADMINISTRATION, FAMILY MEMBERS EXPRESSED DISAPPROVAL FOR MEDICATION ADMINISTRATION. NO DESIRE FOR REFUSAL WAS EXPRESSED PRIOR TO ADMINISTRATION. PATIENT AND FAMILY DO NOT WANT THE PATIENT TO RECEIVE ENOXAPARIN, OR ANY BLOOD THINNERS, WHILE SHE REMAINS IN HOSPITAL. PATIENT REMAINS OFF PRESSORS. STILL TELE STATUS.
[2019-06-06 06:31] LABS: ABSOLUTE BASOPHILS 0.1 thou/uL (0.0-0.2); ABSOLUTE LYMPHOCYTES 0.7 thou/uL (0.8-5.3); ABSOLUTE MONOCYTES 0.3 thou/uL (0.0-1.2); ABSOLUTE NEUTROPHILS 13.4 thou/uL (1.6-8.1); METAMYELOCYTES 1 %
[2019-06-06 06:32] LABS: OVALOCYTES 2+
[2019-06-06 06:35] LABS: ANISOCYTOSIS 2+; MICROCYTES 1+; PLATELET ESTIMATE DECREASED
[2019-06-06 06:36] LABS: SCHISTOCYTES Occasional; TOXIC GRANULATION Occasional
[2019-06-06 07:49] VITALS: BP 93/56
[2019-06-06 08:00] VITALS: BP 95/56
--- NOTE | 2019-06-06 09:20 | NUR ---
1159 ASSUMED CARE OF PATIENT. PLEASE SEE DOCUMENTED ASSESSMENT. PT IS TELE STATUS IN THE ICU.
--- NOTE | 2019-06-06 11:19 | NUR ---
DR MEDINA SAW PATIENT AND SPOKE WITH FAMILY .PLAN IS FOR TRANSFER OUT OF ICU TODAY. FAMILY IS AWARE.
--- NOTE | 2019-06-06 11:31 | NUR ---
REPORT CALLED TO ASIA. PT TO MOVE TO ROOM 225
[2019-06-06 11:37] VITALS: BP 96/46
--- NOTE | 2019-06-06 12:31 | NUR ---
TO 225 PER WHEELCHAIR ON OXYGEN WITH ALL BELONGINGS
[2019-06-06 16:00] VITALS: BP 103/41
--- NOTE | 2019-06-06 17:48 | NUR ---
REPORT RECIEVED FROM WENDY. PT TRANSFERED TO ROOM 225. I HAVE REVIEWED THE DOCUMENTATION OF WENDY MAURICE AND AGREE WITH HER ASSESSMENT. FAMILY REMAINED AT BEDSIDE. NO REPORTS OF PAIN OR NAUSEA. PT HAD LOOSE BOWEL MOVEMENT. PT MOVED TO ROOM 230 TO ACCOMADATE NUMBER OF VISITORS. CENTRAL LINE PATENT. WILL CONTINUE WITH PLAN OF CARE.
[2019-06-07 00:46] VITALS: BP 103/51
[2019-06-07 04:20] VITALS: BP 88/44
--- NOTE | 2019-06-07 04:59 | NUR ---
ASSUMED CARE OF PT AT 1900. PT IS ALERT AND ORIENTED. VSS. PERRLA. NO COMPLAINTS OF PAIN. PT HAS A GUERRIER IN PLACE. PT IS IN A FIB ON THE TELEMETRY. PT IS RESTING COMFORTABLY IN BED. RESPIRATIONS ARE EVEN AND NONLABORED. WILL CONTINUE TO MONITOR PT.
--- NOTE | 2019-06-07 11:25 | NUR ---
ASSUMED CARE OF PATIENT THIS AM AT 0730. PATIENT IS ALERT AND ORIENTED X 4. SHE DENIES PAIN THIS AM. PATIENT ASSISTED WITH ADLS THROUGHOUT THE DAY. FAMILY IS IN AT THE BEDSIDE AND ARE VERY INVOLVED IN PATIENT'S CARE. TELE SHOWS AFIB WITH VENTRICULAR ECTOPIES TO SR. WILL CONTINUE TO MONITOR.
[2019-06-07 13:21] VITALS: BP 142/65
--- NOTE | 2019-06-07 14:38 | NUR ---
CONTINUE TO FOLLOW, MET WITH PT AND FAMILY INCLUDING RONALD/GOLDY WHO IS DPOA. DISCUSSED DC PLAN. THEY STILL PLAN TO TAKE PT HOME AND CONTINUE THEY HAVE. 2 CHILDREN ARE HER PD CAREGIVERS THRU MEDICAID. THEY ARE NOT INTERESTED IN PALLIATIVE CARE OR HOSPICE AT THIS TIME. DISCUSSSED HH, PT HAS BEEN ON SERVICE WITH [facility] IN PAST. SET UP FOR REP FROM [place] TO MEET WITH THEM, SHE SAW THEM AND ALL IN AGREEMENT WITH HH ANTICIPATE DC SOON. WILL FOLLOW
--- NOTE | 2019-06-07 15:06 | PATH ---
[address] [address] PATHOLOGY RPT PROCEDURE Name: GOLDY DAVISON Ethan Room: [address] IN [facility]#: [id number] Admission: 05/25/19 Date of : 38 Discharge: Report #: [id number] Path Case #: [id number] Note [facility] Accession Number: [id number] TESTS RESULT FLAG UNITS REF RANGE LAB Clinician Provided Cytology Information No. of containers..01 Other (Miscellaneous) Source: PLEURAL FLUID DIAGNOSIS: 02 PLEURAL FLUID NEGATIVE FOR DIAGNOSTIC MALIGNANT CELLS. FEW MESOTHELIAL CELLS AND BENIGN-APPEARING INFLAMMATORY CELLS IN BLOODY BACKGROUND. SCANT CELLULARITY. Signed out by: Judson Tejada MD, Pathologist NPI- [id number] Performed by: Jes Gonzales, Radar Operator ([facility]) Gross description: 01 32 ML, RED, BLOODY /LCS 09/14/1840 0000 Local FLAG LEGEND: L-Low Normal,H-High Normal,LL-Alert Low,HH-Alert High <-Panic Low,>-Panic High,A-Abnormal,AA-Critical Abnormal Performed at: [address] [place] [address] Hair Richter MD, [address] [address] Judson Tejada MD, Specimen Comment: A duplicate report has been generated due to demographic updates. Performed at: [address], [place], [place] [id number] MD Hair Richter MD Phone: [phone]
[2019-06-07 23:52] VITALS: BP 87/32
[2019-06-08 04:00] VITALS: BP 110/74
--- NOTE | 2019-06-08 04:27 | NUR ---
ASSUMED CARE OF PT AT 1900. PT IS ALERT AND ORIENTED. VSS. PERRLA. PT IS UP WITH 1 ASSIST AND IS VERY WEAK. PT HAS A GUERRIER IN PLACE. PT IS IN A FIB ON THE TELEMETRY. PT IS RESTING COMFORTABLY IN BED. RESPIRATIONS ARE EVEN AND NONLABORED. WILL CONTINUE TO MONITOR PT.
[2019-06-08 06:43] LABS: ABSOLUTE BASOPHILS 0.1 thou/uL (0.0-0.2); ABSOLUTE EOSINOPHILS 0.1 thou/uL (0.0-0.7); ABSOLUTE MONOCYTES 0.5 thou/uL (0.0-1.2); ABSOLUTE NEUTROPHILS 10.7 thou/uL (1.6-8.1); BASOPHILS 1.2 %; EOSINOPHILS 0.5 %; HEMATOCRIT 25.7 % (37.0-47.0); LYMPHOCYTES 8.4 %; MCH 28.4 pg (26.0-34.0); MCV 91.7 fL (80.0-100.0); MONOCYTES 4.4 %; MPV 8.9 fl. (7.2-11.1); NUCLEATED RBCS 1 /100WBC; PLATELET COUNT* 123 thou/uL (150-400); POLYS 85.5 %; RBC 2.81 mil/uL (4.20-5.00); RDW-CV 22.1 % (10.5-14.5); WBC 12.5 thou/uL (4.0-11.0)
[2019-06-08 06:54] LABS: CALCIUM 8.2 mg/dL (8.5-10.1); CREATININE 1.2 mg/dL (0.6-1.3)
--- NOTE | 2019-06-08 09:12 | NUR ---
ASSUMED CARE OF PT THIS AM AROUND 07- DAY CARE HOME PROVIDER IN PLACE ORDERED, TRACING A-FIB/RATE CONTROLLED- UPON ASSESSMENT PT NOTED TO BE RESTING IN BED, AT SIDE- PT A&O X4-GUERRIER IN PLACE D/D JENNIFER URINE, CONTINENT OF BOWEL-ASSIST X1 WITH TRANSFERS- LCTA/DIMINSHED IN BASES, DYSPNEA NOTED-BP NOTED LOW WITH MIDODRINE GIVEN PRESCIBED THIS AM- O2 SAT 99% ON 2L VIA NC- ABD SOFT/ROUND/NON-TENDER, BS X 4 QUADS- PT NOTED TO HAVE HAD LARGE BM THIS AM- 1-2+ BLE EDEMA NOTED WITH COOLNESS-FAIR PO INTAKE NOTED THIS AM- DENIES ANY C/O PAIN AT THIS TIME- CALL LIGHT AND PERSONAL BELONGINGS WITH IN REACH- HOURLY ROUNDS IN PLACE R/T SAFETY/NEEDS- ALL NEEDS MET AT THIS TIME-WCTM
--- NOTE | 2019-06-08 09:21 | NUR ---
NOTE HAD BEEN DELETED IN PROCESS INTERVENTIONS. THE PT WAS SEEN PT BY ON 06/07/19. TO VIEW ACTUAL NOTE DETAILS, THE NOTE CAN BE VIEWED UNDER PCI/ASSESSMENT. KASSY ROBLEDO, PT
[2019-06-08 11:21] VITALS: BP 91/47
[2019-06-08 12:00] VITALS: BP 96/60
--- NOTE | 2019-06-08 13:45 | NUR ---
CONTINUE TO FOLLOW, POSSIBLE DC TODAY PENDING NEED FOR THORACENTESIS. TO GO HOME WITH [facility] HH. UPDATED DTR/GOLDY. CHECKED WITH [facility], THEY CAN ADMINISTER EPOGEN SHOTS IF ORDERED. OVERNIGHT SAT ORDERED ALSO, WILL DO IN HOSPITAL IF NOT DC'D TODAY OR CAN ARRANGE AT HOME IF NEEDED. AWAIT TEST TODAY AND DECISION ABOUT DC.
[2019-06-08 13:49] VITALS: BP 96/60
[2019-06-08] MEDS ORDERED: EPOGEN2000 UNIT/ SUBQ (13:56)
[2019-06-08] MEDS ORDERED: LIDOPATCH1 EACH TOP (13:56)
[2019-06-08] MEDS ORDERED: THERA M PLUS T1 EAC2 PO (13:56)
[2019-06-08] MEDS ORDERED: IRON325 PO (13:56)
[2019-06-08] MEDS ORDERED: CEFDINIR300 MG PO (13:56)
[2019-06-08] MEDS ORDERED: LANOXIN125 MCG PO (13:56)
[2019-06-08] MEDS ORDERED: NEXIUM40 MG PO (13:56)
[2019-06-08] MEDS ORDERED: CORTEF 20 MG TA20 M1 PO (13:56)
--- NOTE | 2019-06-08 18:20 | NUR ---
ORDERS RECEIVED FOR BASILIO TO D/C POST STAT US IF NO THORACENTESIS NEEDED- US COMPLETED WITH RESULTS REVIEWED WITH BASILIO REYES TO CONTINUE WITH D/C NOTED- GUERRIER D/C'D PRIOR TO D/C- PICTURES OBTAINED OF COCCYX AND LEFT HIP AND PLACED IN CHART FOR VIEWING PRIOR TO D/C- LEFT TRIPLE LUMEN SUB CLAV IV D/C'D WITH PRESSURE APPLIED X5 MINS AND GAUZE/TRANSPARENT DRESSING APPLIED- D/C EDUCATION/TEACHING/NEEDED FOLLOW UP'S COMMUNICATED TO DAUGHTER PRIOR TO D/C WITH ALL QUESTIONS AND CONCERNS ADDRESSED PRIOR TO D/C- WRITTEN EDUCATION ALONG WITH SCRIPTS PROVIDED TO DAUGHTER PRIOR TO D/C- BELONGINGS PACKED AND ACCOUNTED FOR PER PT CHILDREN PRIOR TO D/C- PT DRESSED AND AWAITING TO D/C AT THIS TIME- ALL NEEDS MET AT THIS TIME-WCTM
--- NOTE | 2019-06-10 10:34 | CON ---
[address] [address] CONSULTATION Name: GOLDY DAVISON Room: [address]#: [id number] Admission: 05/25/19 Attend Phys: Boyd De Paz Discharge: 06/08/19 Date of : 38 Report #: [id number] THIS REPORT FOR: //name// CC: Ana Swann DATE OF SERVICE: 05/25/2019 REQUESTING PHYSICIAN: Shin Yanes MD REASON FOR CONSULTATION: Acute kidney injury. CONSULTATION: Done by me today on 05/25/2019. HISTORY OF PRESENT ILLNESS: The patient is a 78-year-old female with multiple medical problems. She has history of liver cirrhosis, history of leukemia, history of failure to thrive, presents with complaints of not feeling well, having progressive shortness of breath. Chest x-ray revealed some vascular congestion and mild pulmonary edema. She was found to be in atrial fibrillation with rapid ventricular response with heart rate around 130. Her creatinine is 2.1. Baseline around 1.1. She has very low muscle mass, so she does have advanced kidney damage. PAST MEDICAL HISTORY: Significant for problems as I mentioned earlier. SOCIAL HISTORY: She has supportive daughter during my exam and daughter provides care to her mother. The patient lives with her at home. She does not smoke, does not drink. REVIEW OF SYSTEMS: Positive for being very weak, shortness of breath, no appetite. FAMILY HISTORY: Noncontributory. MEDICATIONS: Prior to admission reviewed. PHYSICAL EXAMINATION: GENERAL: Awake, alert. VITAL SIGNS: Blood pressure is 82/55, heart rate 130 and irregular. ABDOMEN: Distended. Ascitic fluid. LOWER EXTREMITIES: With some chronic edema. ASSESSMENT: 1. Acute kidney injury likely due to under perfusion of the kidneys due to atrial fibrillation with rapid ventricular response. 2. Atrial fibrillation with [place] [address] CONSULTATION Name: LANEYGOLDY HASTINGS Room: [address]#: [id number] Admission: 05/25/19 Attend Phys: Boyd De Paz Discharge: 06/08/19 Date of : 38 Report #: [id number] 3. Chronic kidney disease stage 3. 4. Liver cirrhosis. 5. Failure to thrive. PLAN: 1. Control heart rate. 2. Monitor renal function. 3. She is not a dialysis candidate. Discussed that with the patient's daughter who agrees that no dialysis should be considered. <ELECTRONICALLY SIGNED> By: Ezequiel Gonzalez MD 06/10/19 1034 1038 1857Abridgett Gonzalez MD /nt
== END 2019-06-08 18:45 | disposition home health service (06) | DRG 871 ==
LOC: M.ERS 02:49 → M.ICU 04:37 → M.TBA-ER 04:37 → M.ICU 05:01 → M.TBA-ER 05:01 → M.ICU 05:28 → M.2W 06-06 12:44
PROVIDERS: Family Medicine; Internal Medicine; Internal Medicine Nephrology; Personal Emergency Response Attendant; ADMIT Internal Medicine
PROC: 02HV33Z Insertion of Infusion Device into Superior Vena Cava, Percutaneous Approach (ICD-10-PCS; principal; 2019-05-25)
PROC: 0W993ZZ Drainage of Right Pleural Cavity, Percutaneous Approach (ICD-10-PCS; 2019-06-01)
PROC: 30233N1 Transfusion of Nonautologous Red Blood Cells into Peripheral Vein, Percutaneous Approach (ICD-10-PCS; 2019-06-05)
DX: A41.9 Sepsis, unspecified organism (principal); N17.0 Acute kidney failure with tubular necrosis; E43 Unspecified severe protein-calorie malnutrition; J18.9 Pneumonia, unspecified organism; I50.43 Acute on chronic combined systolic (congestive) and diastolic (congestive) heart failure; K76.7 Hepatorenal syndrome; J96.21 Acute and chronic respiratory failure with hypoxia; R65.21 Severe sepsis with septic shock; R57.0 Cardiogenic shock; D75.81 Myelofibrosis; R18.8 Other ascites; D61.818 Other pancytopenia; I13.0 Hypertensive heart and chronic kidney disease with heart failure and stage 1 through stage 4 chronic kidney disease, or unspecified chronic kidney disease; I42.9 Cardiomyopathy, unspecified; J98.19 Other pulmonary collapse; Z68.1 Body mass index [BMI] 19.9 or less, adult; D63.8 Anemia in other chronic diseases classified elsewhere; N30.91 Cystitis, unspecified with hematuria; K21.9 Gastro-esophageal reflux disease without esophagitis; K72.90 Hepatic failure, unspecified without coma; K76.81 Hepatopulmonary syndrome; E03.9 Hypothyroidism, unspecified; K80.20 Calculus of gallbladder without cholecystitis without obstruction; Z66 Do not resuscitate; N18.3 Chronic kidney disease, stage 3 (moderate); R62.7 Adult failure to thrive; I48.2 Chronic atrial fibrillation; K74.60 Unspecified cirrhosis of liver; E66.01 Morbid (severe) obesity due to excess calories; Z87.19 Personal history of other diseases of the digestive system; Z88.2 Allergy status to sulfonamides; Z88.0 Allergy status to penicillin; Z88.8 Allergy status to other drugs, medicaments and biological substances; Z79.899 Other long term (current) drug therapy; Z85.6 Personal history of leukemia; Z90.89 Acquired absence of other organs

== ENCOUNTER 2019-06-17 14:29 | Inpatient (IN) | payer MEDICARE, MEDICAID ==
[~2019-06-17] VITALS: Ht 152.4 cm; Wt 52.4 kg
[~2019-06-17 14:29] MED LIST changes: +CORTEF 20 MG TA20 M1 PO; +EPOGEN2000 UNIT/ SUBQ; +IRON325 PO
[2019-06-17 14:43] VITALS: BP 84/41
[2019-06-17 15:34] LABS: HEMOGLOBIN 8.9 gm/dL (12.0-15.0); MCH 29.4 pg (26.0-34.0); MCHC 31.8 g/dL (28.0-37.0); MCV 92.7 fL (80.0-100.0); MPV 8.5 fl. (7.2-11.1); NUCLEATED RBCS 0 /100WBC; PLATELET COUNT* 117 thou/uL (150-400); RBC 3.02 mil/uL (4.20-5.00); RDW-CV 25.4 % (10.5-14.5); WBC 11.8 thou/uL (4.0-11.0)
[2019-06-17 15:44] LABS: ANION GAP 8 mmol/L (7-16); BUN 26 mg/dL (7-18); CALCIUM 8.1 mg/dL (8.5-10.1); CHLORIDE 102 mmol/L (98-107); CO2 26 mmol/L (21-32); CREATININE 0.9 mg/dL (0.6-1.3); GLUCOSE 90 mg/dL (70-99); POTASSIUM 4.7 mmol/L (3.5-5.1); SODIUM 136 mmol/L (136-145)
[2019-06-17 15:55] LABS: ALBUMIN 2.8 g/dL (3.4-5.0); ALKALINE PHOSPHATASE 107 U/L (46-116); NT-PRO BRAIN NAT PEPTIDE 14594 pg/mL (<300); SGOT 18 U/L (15-37); SGPT 22 U/L (30-65); TOTAL BILIRUBIN 0.6 mg/dL (<0.1-1.0); TOTAL PROTEIN 6.2 g/dL (6.4-8.2); TROPONIN-I LEVEL <0.06 ng/mL (<0.06)
[2019-06-17 15:58] LABS: ABSOLUTE EOSINOPHILS 0.1 thou/uL (0.0-0.7); ABSOLUTE LYMPHOCYTES 0.4 thou/uL (0.8-5.3); ABSOLUTE MONOCYTES 0.6 thou/uL (0.0-1.2); ABSOLUTE NEUTROPHILS 10.7 thou/uL (1.6-8.1); PLATELET ESTIMATE ADEQUATE
[2019-06-17 16:54] LABS: PROTIME 10.6 Seconds (9.20-11.50)
[2019-06-17 19:56] VITALS: BP 98/59
[2019-06-17 20:00] VITALS: BP 100/60
[2019-06-18] VITALS: BP 95/59
[2019-06-18 04:00] VITALS: BP 75/59
[2019-06-18 05:16] LABS: ABSOLUTE BASOPHILS 0.1 thou/uL (0.0-0.2); ABSOLUTE EOSINOPHILS 0.1 thou/uL (0.0-0.7); ABSOLUTE LYMPHOCYTES 0.9 thou/uL (0.8-5.3); ABSOLUTE MONOCYTES 0.5 thou/uL (0.0-1.2); ABSOLUTE NEUTROPHILS 7.4 thou/uL (1.6-8.1); BASOPHILS 1.4 %; EOSINOPHILS 0.6 %; HEMATOCRIT 27.1 % (37.0-47.0); HEMOGLOBIN 8.6 gm/dL (12.0-15.0); LYMPHOCYTES 9.7 %; MCH 29.6 pg (26.0-34.0); MCHC 31.7 g/dL (28.0-37.0); MCV 93.3 fL (80.0-100.0); MONOCYTES 5.9 %; MPV 7.9 fl. (7.2-11.1); NUCLEATED RBCS 0 /100WBC; PLATELET COUNT* 95 thou/uL (150-400); POLYS 82.4 %; RDW-CV 25.3 % (10.5-14.5)
[2019-06-18 05:50] LABS: CALCIUM 8.4 mg/dL (8.5-10.1); CREATININE 0.9 mg/dL (0.6-1.3); POTASSIUM 4.7 mmol/L (3.5-5.1)
[2019-06-18 08:00] VITALS: BP 102/47
--- NOTE | 2019-06-18 10:32 | EKG ---
[place] [address] ELECTROCARDIOGRAM REPORT Name: GOLDY DAVISON Room: [address] ADM IN .R.#: [id number] Admission: 06/17/19 Attend Phys: Eran Garrett MD Discharge: Date of : 38 Report #: [id number] THIS REPORT FOR: //name// [facility] ED Test Date: 2019-06-17 Test Time: 14:43:03 Pat Name: GOLDY DAVISON Department: Room: [facility] Gender: F Trade Facilitator: EV : 1940 Requested By: Chris Ricks Order Number: [id number] MD: Doug Solano Measurements Intervals [place] Rate: 73 P: SD: QRS: 56 QRSD: 110 T: 213 QT: 376 QTc: 415 Interpretive Statements Atrial fibrillation Repol abnrm suggests ischemia, diffuse leads Compared to ECG 05/26/2019 11:07:51 Possible ischemia now present Prolonged QT interval no longer present Electronically Signed On 06-18-2019 10:32:32 CDT by Doug Solano [email or web address] <ELECTRONICALLY SIGNED> By: Doug Solano MD, FACC 06/18/19 1032 1443 1443 Doug Solano MD, FACC /EPI
[2019-06-18 13:06] VITALS: BP 75/42
[2019-06-18 18:00] VITALS: BP 102/48
--- NOTE | 2019-06-20 12:20 | CON ---
[address] [address] CONSULTATION Name: GOLDY DAVISON Room: [address]#: [id number] Admission: 06/17/19 Attend Phys: Eran Garrett MD Discharge: 06/18/19 Date of : 38 Report #: [id number] THIS REPORT FOR: //name// CC: Eran Hills MD DICTATED BY: Tammie David [facility] DATE OF SERVICE: 06/18/2019 Please note at the time of this dictation, the patient was seen and physically examined by myself. REASON FOR CONSULTATION: Possible ascitic fluid of the abdomen, history of cirrhosis. HISTORY OF PRESENT ILLNESS: This is a 78-year-old female who presented to the Emergency Room with worsening of swelling in her lower legs and family felt that her abdomen was increasing in size. Ultrasound revealed no ascites fluid; however, BNP was elevated for her congestive heart failure at 14,000. The patient has had numerous admissions for her congestive heart failure and her cirrhosis of her liver. The patient was diagnosed with cirrhosis of the liver back in November of this year in which she has undergone numerous EGDs for variceal banding and for surveillance. Initially, her first variceal banding was in November in which she had grade 3 varices. Her last EGD was in February that showed small varices less than 5 mm. She had severe portal hypertension at that time with oozing from the entire gastric antrum, likely related to her thrombocytopenia as well. She also had a colonoscopy back in December that showed a rectal ulcer and nonbleeding external hemorrhoids that were noted at that time. The patient has never been followed up in the office. She has been taking midodrine 15 mg t.i.d. at home to help with her blood pressure, spironolactone has been 50 mg and Lasix has been 20 mg as well as an iron supplementation at home. ALLERGIES: PENICILLIN, SULFA AND CODEINE. MEDICATIONS: At home, Synthroid, again Lasix 20, midodrine 15, Omnicef, iron, digoxin, vitamin D, Nexium, Cortef, lidocaine patch and multivitamin. PAST MEDICAL HISTORY: Heart disease, lung disease, cirrhosis, portal hypertension. FAMILY HISTORY: Noncontributory. SOCIAL HISTORY: Lives at home with family. Denies any alcohol, [place] [address] CONSULTATION Name: GOLDY DAVISON Ethan Room: [address]#: [id number] Admission: 06/17/19 Attend Phys: Eran Garrett MD Discharge: 06/18/19 Date of : 38 Report #: [id number] illegal drug use. REVIEW OF SYSTEMS: Twelve-point review of systems is essentially negative except what is mentioned in the HPI. PHYSICAL EXAMINATION: VITAL SIGNS: Temperature 36.3, pulse 78, respirations 18, blood pressure 75/59. GENERALIZED APPEARANCE: The patient is very cachectic looking and can barely keep her eyes open during the consultation. HEART: Regular rate and rhythm. LUNGS: Diminished, but clear. ABDOMEN: Soft, positive bowel sounds in all 4 quadrants with no masses or tenderness noted. LABORATORY DATA: Hemoglobin is 8.6, white count 9.8, platelets 95. GFR is 60. PT 10.6, INR is 1. Albumin is 2.8. BNP was 14,594 and her overall MELD score was 6. Ultrasound essentially negative for any ascitic fluid. IMPRESSION: 1. Abdominal distention, likely secondary to small bowel bacterial overgrowth. 2. Gas and bloating. 3. History of cirrhosis with variceal banding. 4. Long-term PPI use. 5. Congestive heart failure. PLAN: 1. Outpatient breath test. 2. Further recommendations to be made once that has been performed. Thank you for allowing us to participate in this patient's care. Please do not hesitate to call with any questions in regard to this consult. Dr. Najera Addendum Discussed the patient's overall status with the patient's daughter who is the DPOA. The patient had end stage liver disease and therefore is not a transplant candidate, she will continue to get worse as her liver function continues to decline. The abdominal distension is due to lactulose that she is currently on. Unfortunately, she will need to be on it due to encephalopathy. Further, rifaximin needs to be added to the regimen and it may have the additional effect of reducing small bowel bacterial overgrowth. No role of H2 breath test here. Her prognosis continues to remain poor and guarded. <ELECTRONICALLY SIGNED> By: Cedric Najera MD 06/20/19 1220 1155 1225Cedric Najera MD /nt
--- NOTE | 2019-06-21 14:56 | CON ---
[address] [address] CONSULTATION Name: GOLDY DAVISON Room: [address]#: [id number] Admission: 06/17/19 Attend Phys: Giancarlo Garrett MD Discharge: 06/18/19 Date of : 38 Report #: [id number] THIS REPORT FOR: //name// CC: GIANCARLO Perez [place] DATE OF SERVICE: 06/18/2019 REASON FOR CONSULTATION: Anemia. HISTORY OF PRESENT ILLNESS: A 78-year-old female who has been evaluated today because of chronic anemia. The patient had liver cirrhosis and she has been admitted because of lower extremity edema, increased abdominal girth. She has a drainage, paracentesis previously. The patient had prior cytology of the pleural effusion, which was negative for malignant cells. She had a bone marrow biopsy done way back in 11/2018 showed hypercellular bone marrow with trilineage hematopoiesis. There is increased atypical clustered megakaryocyte consistent with myeloproliferative process. There is diffuse 4/4 reticulin fibrosis, no stainable iron. There is a differential diagnosis including mixed MDS/MPN. Today, her hemoglobin was 8.6 with a platelet count of 95. The patient has a long history of anemia; however, she had a worsening of her anemia in the last month. She was seen by Dr. Najera and she had a previous history of congestive heart failure in addition to liver cirrhosis. She underwent numerous EGDs and varices banding for surveillance. The patient was reported to have severe portal hypertension and she has oozing from the entire gastric antrum. Also, her colonoscopy showed a rectal ulcer with nonbleeding external hemorrhoids. REVIEW OF SYSTEMS: All systems reviewed. It was negative except the above. 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 MEDICATIONS: Per admission list. ALLERGIES: PENICILLIN, SULFA AND CODEINE. FAMILY HISTORY: Noncontributory. SOCIAL HISTORY: No smoking, no alcohol abuse, no drug abuse. PHYSICAL EXAMINATION: VITAL SIGNS: Today, temperature 36.6, pulse of 59, respirations 17, blood pressure 75/42 and SpO2 was 96% on 2 [place] [address] CONSULTATION Name: GOLDY DAVISON Room: [address]#: [id number] Admission: 06/17/19 Attend Phys: Giancarlo Garrett MD Discharge: 06/18/19 Date of : 38 Report #: [id number] GENERAL: The patient was sitting at the edge of the bed. She looked tired, cachectic. She was able to communicate verbally. I discussed with the daughter who is the DPOA over the phone. LUNGS: Decreased breathing sounds bilaterally. HEART: Regular rate and rhythm. S1, S2 within normal limits. ABDOMEN: Soft and nontender. EXTREMITIES: A +1 edema bilaterally. LABORATORY DATA: Labs today, WBC 9.0, hemoglobin 8.6 and platelets 95. PT is 10.6, PTT 28.0, creatinine 0.9 and calcium is 8.4. IMAGING: Abdominal ultrasound today showed no ascites identified. ASSESSMENT AND PLAN: A 78-year-old female who has advanced liver disease. The patient was evaluated because of chronic anemia and chronic thrombocytopenia. I do not believe there is any benefit in Epogen shot at this point. The patient had previously bone marrow biopsy showed myeloproliferative disease/questionable myelodysplastic syndrome. I think her prognosis will be determined by her liver cirrhosis at this point. Due to no stainable iron in her bone marrow, I would like to obtain a workup including ferritin, iron studies, B12, folate, also peripheral blood smear. Agree with supportive care at this point. No aggressive treatment due to general performance status, comorbidities and advanced age. Plan was discussed with the family. <ELECTRONICALLY SIGNED> By: Shawanda Dudley MD 06/21/19 1456 1754 [id number] Dudley MD /nt
== END 2019-06-18 20:20 | disposition home or self-care (01) | DRG 177 ==
LOC: M.ERS 14:29 → M.2W 16:46 → M.TBA-ER 16:46 → M.2W 20:37
PROVIDERS: Emergency Medicine Emergency Medical Services; Internal Medicine; ADMIT Internal Medicine
DX: J69.0 Pneumonitis due to inhalation of food and vomit (principal); I50.23 Acute on chronic systolic (congestive) heart failure; E43 Unspecified severe protein-calorie malnutrition; D61.818 Other pancytopenia; J96.10 Chronic respiratory failure, unspecified whether with hypoxia or hypercapnia; K76.6 Portal hypertension; I13.0 Hypertensive heart and chronic kidney disease with heart failure and stage 1 through stage 4 chronic kidney disease, or unspecified chronic kidney disease; K72.90 Hepatic failure, unspecified without coma; N18.2 Chronic kidney disease, stage 2 (mild); K74.60 Unspecified cirrhosis of liver; R16.1 Splenomegaly, not elsewhere classified; E03.9 Hypothyroidism, unspecified; Z88.6 Allergy status to analgesic agent; Z88.0 Allergy status to penicillin; Z88.2 Allergy status to sulfonamides; Z79.899 Other long term (current) drug therapy; Z68.22 Body mass index [BMI] 22.0-22.9, adult

== ENCOUNTER → 2019-10-12 | Outpatient (CLI) | payer MEDICARE, MEDICAID, SELFPAY ==
--- NOTE | ~2019-10-12 | HEMONC ---
[address] [address] HEMATOLOGY ONCOLOGY NOTE Name: GOLDY DAVISON Room: [facility]#: [id number] Admission: 10/12/19 Attend Phys: Shawanda Dudley MD Discharge: Date of : 38 Report #: [id number] THIS REPORT FOR: //name// CC: Ana Dudley DATE OF SERVICE: 10/12/2019 CLINIC NOTE DIAGNOSES: 1. Anemia. 2. Myelofibrosis/myelodysplastic syndrome, JAK2 mutation positive. SUBJECTIVE: The patient presented today as a 3 months' followup. Previously, she was found to have congestive heart failure with chronic respiratory failure and end-stage liver disease due to PIERCE with portal hypertension and splenomegaly. I reviewed her prior labs including bone marrow biopsy, which confirmed myelofibrosis/MDS in addition to 4/4 reticulin. JAK2 mutation came back positive. BCR-ABL came back negative. Per the patient, she was started on ruxolitinib; however, she had severe symptoms after that for the last 6 days. The patient at this point has been off treatment. Also, in her bone marrow biopsy showed no stainable iron studies. Today, the patient reported severe fatigue with itching. Benadryl and Atarax do not have any minimal relief. REVIEW OF SYSTEMS: All systems reviewed. It was negative except the above. PAST MEDICAL, SOCIAL, AND FAMILY HISTORY: Unchanged except the above. PHYSICAL EXAMINATION: VITAL SIGNS: Have been reviewed. GENERAL: The patient was in a wheelchair as she looked tired. LUNGS: Decreased breathing sounds bilaterally. HEART: Regular rate and rhythm. S1, S2 within normal limits. ABDOMEN: Positive for ascites. EXTREMITIES: No edema, no cyanosis, no clubbing. LABORATORY DATA: For today are pending; however, in June 2019, WBC was 9.0, hemoglobin 8.6, platelets 94. Creatinine 0.9, ferritin 169, total bilirubin 0.6, total protein 6.2, albumin 2.8. B12 is 428, folate is 49.8. Hepatitis panel came back negative. IMAGING: Prior imaging including CT scan back in February of 2019 showed massive splenomegaly 25 cm. Her ultrasound in June 2019 showed no [place] [address] HEMATOLOGY ONCOLOGY NOTE Name: LANEY,GOLDY C Room: [facility]#: [id number] Admission: 10/12/19 Attend Phys: Shawanda Dudley MD Discharge: Date of : 38 Report #: [id number] ASSESSMENT AND PLAN: An 79-year-old female who has been evaluated because of anemia due to end-stage liver disease. In addition to massive splenomegaly, bone marrow biopsy revealed changes consistent with myelofibrosis/myelodysplastic syndrome. In addition to that, her mutation testing came back positive for JAK2 mutation positive. Per the daughter, she tried 6 days of ruxolitinib; however, she had major side effects per the daughter. RECOMMENDATIONS: I would like to repeat her hemoglobin today along with iron studies. I advised the patient to hold her oral iron due to side effects that she has been experiencing at this point. In addition to that, we will proceed with intravenous iron for 2 doses. I would like to reevaluate the patient in 4 weeks. Today, the daughter and the patient were not agreeable to initiate ruxolitinib; however, I would like to repeat her labs and see the response for the intravenous iron and based on that, we will most likely initiate a lowered dose, reduced ruxolitinib to treat her symptoms including fatigue and itching. By: 1041 1139Shawanda Dudley MD /olga
[2019-10-12 10:46] LABS: HEMATOCRIT 30.8 % (37.0-47.0); HEMOGLOBIN 10.2 gm/dL (12.0-15.0); MCH 28.2 pg (26.0-34.0); MCHC 32.9 g/dL (28.0-37.0); MCV 85.6 fL (80.0-100.0); MPV 8.1 fl. (7.2-11.1); NUCLEATED RBCS 0 /100WBC; PLATELET COUNT* 135 thou/uL (150-400); RDW-CV 20.1 % (10.5-14.5); WBC 10.8 thou/uL (4.0-11.0)
[2019-10-12 10:59] LABS: ALBUMIN 3.2 g/dL (3.4-5.0); CALCIUM 8.5 mg/dL (8.5-10.1); CREATININE 1.1 mg/dL (0.6-1.3); POTASSIUM 4.7 mmol/L (3.5-5.1); TOTAL BILIRUBIN 0.5 mg/dL (<0.1-1.0); TOTAL PROTEIN 7.1 g/dL (6.4-8.2)
[2019-10-12 11:13] LABS: % SATURATION 17 % (20-39); IRON 51 ug/dL (50-175)
[2019-10-12 11:15] LABS: ABSOLUTE LYMPHOCYTES 1.3 thou/uL (0.8-5.3); ABSOLUTE MONOCYTES 0.3 thou/uL (0.0-1.2); ABSOLUTE NEUTROPHILS 9.2 thou/uL (1.6-8.1); ANISOCYTOSIS 1+; MYELOCYTES 1 %; PLATELET ESTIMATE DECREASED; POIKILOCYTOSIS 1+
[2019-10-12 11:16] LABS: OVALOCYTES Occasional
== END ==
LOC: M.RTH 09:30
PROVIDERS: Internal Medicine
DX: D75.81 Myelofibrosis (principal); D64.9 Anemia, unspecified; Z79.899 Other long term (current) drug therapy

== ENCOUNTER 2020-07-18 13:16 | Emergency (ER) | payer MEDICARE, MEDICAID, SELFPAY ==
[~2020-07-18] VITALS: Ht 162.6 cm; Wt 44.9 kg
[2020-07-18 13:56] LABS: BE -3.1 mmol/L (-2 to +3); PCO2 36.2 mmHg (35.0-45.0); PO2 80.9 mmHg (75.0-100.0); pH 7.388 (7.340-7.450)
[2020-07-18 14:06] LABS: HEMATOCRIT 37.3 % (37.0-47.0); HEMOGLOBIN 11.8 gm/dL (12.0-15.0); MCH 27.5 pg (26.0-34.0); MCHC 31.7 g/dL (28.0-37.0); MCV 86.7 fL (80.0-100.0); MPV 8.5 fl. (7.2-11.1); NUCLEATED RBCS 0 /100WBC; PLATELET COUNT* 294 thou/uL (150-400); RDW-CV 17.9 % (10.5-14.5); WBC 15.4 thou/uL (4.0-11.0)
[2020-07-18] MEDS ORDERED: MIDODRINE HCL 55 M1 PO (14:08)
[2020-07-18] MEDS ORDERED: SPIRONOLACTONE50 MG PO (14:08)
[2020-07-18] MEDS ORDERED: LACTULOSE20 GM/30 M PO (14:10)
[2020-07-18 14:32] LABS: ALBUMIN 3.4 g/dL (3.4-5.0); CALCIUM 9.6 mg/dL (8.5-10.1); CREATININE 1.1 mg/dL (0.6-1.3); MAGNESIUM 2.6 mg/dL (1.8-2.4); POTASSIUM 4.8 mmol/L (3.5-5.1); TOTAL BILIRUBIN 0.5 mg/dL (<0.1-1.0); TOTAL PROTEIN 7.4 g/dL (6.4-8.2)
[2020-07-18 14:40] LABS: PROTIME 11.2 Seconds (9.20-11.50)
[2020-07-18 14:41] LABS: INR 1.1
[2020-07-18 15:14] LABS: ABSOLUTE EOSINOPHILS 0.5 thou/uL (0.0-0.7); ABSOLUTE LYMPHOCYTES 0.8 thou/uL (0.8-5.3); ABSOLUTE MONOCYTES 0.5 thou/uL (0.0-1.2); ABSOLUTE NEUTROPHILS 13.7 thou/uL (1.6-8.1); PLATELET ESTIMATE ADEQUATE
[2020-07-18 16:01] LABS: URINE BILIRUBIN NEGATIVE (Negative); URINE BLOOD NEGATIVE (Negative); URINE CLARITY CLEAR; URINE COLOR YELLOW; URINE GLUCOSE-RANDOM NEGATIVE (Negative); URINE KETONES NEGATIVE (Negative); URINE LEUKOCYTES-REFLEX NEGATIVE (Negative); URINE NITRITE-REFLEX NEGATIVE (Negative); URINE PROTEIN NEGATIVE (Negative); URINE SPECIFIC GRAVITY 1.025 (1.005-1.030); URINE UROBILINOGEN 0.2 E.U./dl (0.2-1.0)
[2020-07-18 18:07] VITALS: BP 92/63
--- NOTE | 2020-07-19 11:26 | EKG ---
[place] [address] ELECTROCARDIOGRAM REPORT Name: GOLDY DAVISON Room: [facility]#: [id number] Admission: 07/18/20 Attend Phys: Discharge: 07/18/20 Date of : 38 Date of Service: 07/18/20 1336 Report #: [id number] THIS REPORT FOR: //name// [facility] ED Test Date: 2020-07-18 Test Time: 13:36:34 Pat Name: GOLDY DAVISON Department: Room: Gender: F Regulatory Product Manager: : 1940 Requested By: Samantha Bernal Order Number: [id number] MD: Doug Solano Measurements Intervals [place] Rate: 84 P: AL: QRS: 44 QRSD: 130 T: 152 QT: 431 QTc: 510 Interpretive Statements Atrial fibrillation Nonspecific intraventricular conduction delay Borderline repolarization abnormality Compared to ECG 06/17/2019 14:43:03 Possible ischemia no longer present Electronically Signed On 07-19-2020 11:26:27 STATION MANAGER by Doug Solano [email or web address] <ELECTRONICALLY SIGNED> By: Doug Solano MD, [facility] 07/19/20 1126 1336 1336 Doug Solano MD, [facility] /EPI
== END 2020-07-18 18:08 | disposition home or self-care (01) ==
LOC: M.ERS 13:16
PROVIDERS: Personal Emergency Response Attendant
DX: E86.0 Dehydration (principal); R41.82 Altered mental status, unspecified; R62.7 Adult failure to thrive; Z20.828 Contact with and (suspected) exposure to other viral communicable diseases

== ENCOUNTER 2021-03-04 12:58 | Inpatient (IN) | payer MEDICARE, MEDICAID ==
[~2021-03-04] VITALS: Ht 160 cm; Wt 52.8 kg
[~2021-03-04 12:58] MED LIST changes: +SPIRONOLACTONE50 MG PO
[2021-03-04 13:11] VITALS: BP 84/40
[2021-03-04 13:28] LABS: URINE BILIRUBIN NEGATIVE (Negative); URINE BLOOD 2+ (Negative); URINE CLARITY CLEAR; URINE COLOR YELLOW; URINE GLUCOSE-RANDOM NEGATIVE (Negative); URINE KETONES NEGATIVE (Negative); URINE NITRITE-REFLEX NEGATIVE (Negative); URINE PROTEIN NEGATIVE (Negative); URINE UROBILINOGEN 0.2 E.U./dl (0.2-1.0)
[2021-03-04 13:29] LABS: URINE LEUKOCYTES-REFLEX 2+ (Negative)
[2021-03-04 13:38] LABS: HYALINE CASTS 0-3 Few /LPF (None Seen); SQUAMOUS 0-3 Few /LPF (0-3)
[2021-03-04 13:41] LABS: BACTERIA-REFLEX 1-9 Few /HPF (None Seen)
[2021-03-04 13:42] LABS: URINE WBC-REFLEX 6-15 Few /HPF (0-5)
[2021-03-04 13:43] LABS: CRYSTALS None Seen /LPF (None Seen); URINE RBC 0-2 Rare /HPF (0-2)
[2021-03-04 13:44] LABS: HEMATOCRIT 35.7 % (37.0-47.0); HEMOGLOBIN 11.7 gm/dL (12.0-15.0); MCH 28.5 pg (26.0-34.0); MCHC 32.7 g/dL (28.0-37.0); MPV 8.4 fl. (7.2-11.1); NUCLEATED RBCS 0 /100WBC; PLATELET COUNT* 248 thou/uL (150-400); RDW-CV 17.7 % (10.5-14.5); WBC 11.8 thou/uL (4.0-11.0)
[2021-03-04 13:52] LABS: CALCIUM 8.9 mg/dL (8.5-10.1); CREATININE 1.1 mg/dL (0.6-1.3); POTASSIUM 4.3 mmol/L (3.5-5.1)
[2021-03-04 13:57] LABS: ALBUMIN 3.3 g/dL (3.4-5.0); TOTAL BILIRUBIN 0.7 mg/dL (<0.1-1.0); TOTAL PROTEIN 6.9 g/dL (6.4-8.2)
[2021-03-04 14:08] LABS: ABSOLUTE BASOPHILS 0.5 thou/uL (0.0-0.2); ABSOLUTE EOSINOPHILS 0.1 thou/uL (0.0-0.7); ABSOLUTE LYMPHOCYTES 0.8 thou/uL (0.8-5.3); ABSOLUTE MONOCYTES 0.2 thou/uL (0.0-1.2); ABSOLUTE NEUTROPHILS 10.1 thou/uL (1.6-8.1); ANISOCYTOSIS 1+; METAMYELOCYTES 1 %; PLATELET ESTIMATE ADEQUATE
--- NOTE | 2021-03-04 14:08 | NUR ---
A PUREWICK WAS APPLIED TO THE PATIENT PER HER REQUEST AT THIS TIME.
--- NOTE | 2021-03-04 14:12 | NUR ---
CT SCAN delayed due to pt request for adrianna. Pippa asked (Daisy) if they would call us as soon as we can get her completed.
[2021-03-04 15:51] VITALS: BP 86/32
[2021-03-04 16:05] VITALS: BP 79/38
--- NOTE | 2021-03-04 16:05 | NUR ---
ER ADMIT TO RM 220 TO ROOM VIA CART ASSIST OF 3 FROM CART TO BED DENIES PAIN ORIENTED TO CALL LIGHT AND ROOM ADMISSION AND HISTORY TO BE DONE
[2021-03-04 20:00] VITALS: BP 81/40
[2021-03-05] VITALS: BP 91/31
[2021-03-05 04:00] VITALS: BP 97/49
--- NOTE | 2021-03-05 07:37 | NUR ---
ASSUMED CARE OF PT AFTER REPORT AT 1930. PT A&OX4. VSS. PHYSICAL ASSESSMENT COMPLETED AND CHARTED. PT ON RA. PT TRACING AFIB ON TELE. PT UPWITH 1 ASSIST. FAMILY AT BS. NO EPISODES OF HEMATOCHEZIA OVERNIGHT. PT COMPLAINED OF BACK PAIN BUT REFUSED PAIN MEDS. FALL PRECAUTIONS IN PLACE. CALL LIGHT WITHIN REACH.
[2021-03-05 08:59] VITALS: BP 105/60
--- NOTE | 2021-03-05 10:43 | EKG ---
[place] [address] ELECTROCARDIOGRAM REPORT Name: GOLDY DAVISON Room: [address] IN .R.#: [id number] Admission: 03/04/21 Attend Phys: Tahir Swann Discharge: Date of : 38 Date of Service: 03/04/21 1325 Report #: [id number] THIS REPORT FOR: //name// [facility] ED Test Date: 2021-03-04 Test Time: 13:25:58 Pat Name: GOLDY DAVISON Department: Room: [facility] Gender: F Shipping Specialist: LIVIA : 1940 Requested By: Bharat Maya Order Number: [id number] MD: Primo Ta Measurements Intervals [place] Rate: 85 P: VT: QRS: 44 QRSD: 113 T: 182 QT: 331 QTc: 394 Interpretive Statements Atrial fibrillation Borderline intraventricular conduction delay Borderline repolarization abnormality Compared to ECG 07/18/2020 13:36:34 No significant changes Electronically Signed On 03-05-2021 10:42:51 CDT by Primo Ta [email or web address] <ELECTRONICALLY SIGNED> By: Primo Ta MD, [facility] 03/05/21 1042 1325 1325 Primo Ta MD, [facility] /EPI
[2021-03-05 12:00] VITALS: BP 91/45
--- NOTE | 2021-03-05 13:04 | NUR ---
CM ASSESSMENT: PT A&O. PT'S DTR AT THE BEDSIDE AND ANSWERING CM ASSESSMENT QUESTIONS. PT RESIDES AT HOME WITH HER DTR AND HER DTR ASSIST THE PT WILL ALL CARES. PT AMBULATES WITH HAND HELD GUIDING PER HER DTR, AND DOES NOT USE DME FOR MOBILITY. PT OWNS A WALKER, WHEELCHAIR, LIFT CHAIR, AND BSC. PT HAS PAST HX OF HH, BUT HER DTR INFORMS THAT SHE 'DOES NOT NEED IT, AND WE DONT WANT IT'. NO OTHER CM D/C PLANNING NEEDS ANTICIPATED. CM WILL REMAIN AVAILABLE TO ASSIST AND FOLLOW NEEDED.
[2021-03-05 16:00] VITALS: BP 98/38
[2021-03-05 16:58] LABS: HEMATOCRIT 34.6 % (37.0-47.0); HEMOGLOBIN 11.4 gm/dL (12.0-15.0); MCH 28.6 pg (26.0-34.0); MCHC 33.1 g/dL (28.0-37.0); MCV 86.3 fL (80.0-100.0); MPV 8.1 fl. (7.2-11.1); NUCLEATED RBCS 0 /100WBC; PLATELET COUNT* 254 thou/uL (150-400); RDW-CV 17.7 % (10.5-14.5); WBC 14.4 thou/uL (4.0-11.0)
[2021-03-05 17:11] LABS: CALCIUM 8.9 mg/dL (8.5-10.1); CREATININE 1.1 mg/dL (0.6-1.3); POTASSIUM 5.5 mmol/L (3.5-5.1)
[2021-03-05 17:13] LABS: INR 1.1; PROTIME 11.2 Seconds (9.20-11.50)
[2021-03-05 17:16] LABS: ALBUMIN 3.2 g/dL (3.4-5.0); TOTAL BILIRUBIN 0.5 mg/dL (<0.1-1.0); TOTAL PROTEIN 6.7 g/dL (6.4-8.2)
[2021-03-05 17:26] LABS: ABSOLUTE BASOPHILS 0.1 thou/uL (0.0-0.2); ABSOLUTE EOSINOPHILS 0.1 thou/uL (0.0-0.7); ABSOLUTE LYMPHOCYTES 1.9 thou/uL (0.8-5.3); ABSOLUTE MONOCYTES 0.6 thou/uL (0.0-1.2); ABSOLUTE NEUTROPHILS 11.7 thou/uL (1.6-8.1)
[2021-03-05 17:27] LABS: OVALOCYTES 2+; PLATELET ESTIMATE ADEQUATE
[2021-03-05 17:28] LABS: ANISOCYTOSIS 1+
[2021-03-05 17:29] LABS: MICROCYTES Occasional; POLYCHROMASIA Occasional
[2021-03-05 17:30] LABS: POIKILOCYTOSIS 1+
--- NOTE | 2021-03-05 18:40 | NUR ---
Dr. Walker cleared pt for discharge from his standpoint as pt's hgb stable, and OB stool negative. Pt's dtr (DPOA) requesting that pt be discharged tonight. Dr. Garrett paged, states he will enter orders later, but was driving home at the time of call and would need time to get to a computer to enter discharge orders. Pt's dtr agreeable to discharge later, and states "it's just easier to manage her care at home." VSS. Awaiting discharge orders from Dr. Garrett.
[2021-03-05 20:07] VITALS: BP 98/38
--- NOTE | 2021-03-06 07:25 | CON ---
[address] [address] CONSULTATION Name: GOLDY DAVISON Room: [address]#: [id number] Admission: 03/04/21 Attend Phys: Boyd De Paz Discharge: 03/05/21 Date of : 38 Report #: [id number] THIS REPORT FOR: cc: Tg Tsang Angela Jo RNP Vardakis, Gregory DO ~ DOC #: [id number] cc: ANN Ken FNP DATE OF CONSULTATION: 03/05/2021 Please note at the time of this dictation, the patient was seen and physically examined by myself. REASON FOR CONSULTATION: Rectal bleeding. HISTORY OF PRESENT ILLNESS: This is an 80-year-old female who yesterday family noticed after a bowel movement, she had noticed some spotting beforehand and then she had another bowel movement that they notice some bright red bleeding prompting them to bring her in for further evaluation. They have not seen any more bright red bloody stools. The patient denied any pain with the bowel movement. She does have several soft to a little loose bowel movements daily and some incontinence at night. Daughter and care for her at home. They thought that when she went to the bathroom later in the day that the bleeding was a little worse thinking that they needed to bring her in to be seen. The patient has been seen by us, the last time was in 02/2019, we personally saw her in 11/2018 in which she was diagnosed with cirrhosis of the liver. She had ascites and grade 3 esophageal varices. She underwent repeat EGD in 02/2019 that showed very small varices and severe portal hypertensive gastropathy with some oozing noted. Also in 12/2018, she had a single ulcer in the rectum and nonbleeding internal hemorrhoids were noted. She is being maintained on midodrine 5 mg t.i.d., spironolactone 50 and lactulose 20 b.i.d. The patient is very weak and lays, most of time sleeping in the bed. ALLERGIES: PENICILLIN, SULFA, AND CODEINE. MEDICATIONS FROM HOME: Include midodrine 5 mg t.i.d., spironolactone 50 mg daily, lactulose 20 grams b.i.d., levothyroxine 200 mcg and Lasix 20. PAST MEDICAL HISTORY: Leukemia untreated cirrhosis, end-stage renal disease, autoimmune hepatitis, hypothyroidism. She has got masses in her chest and abdominal cavity. She has myelofibrosis with chronic pancytopenia, history of varices, chronic kidney disease [place] [address] CONSULTATION Name: GOLDY DAVISON Room: [address]#: [id number] Admission: 03/04/21 Attend Phys: Boyd De Paz Discharge: 03/05/21 Date of : 38 Report #: [id number] PAST SURGICAL HISTORY: Appendectomy and tonsillectomy. FAMILY HISTORY: Noncontributory. SOCIAL HISTORY: Lives with her and daughter. REVIEW OF SYSTEMS: Twelve-point review of systems is essentially negative except what is mentioned in the HPI. PHYSICAL EXAMINATION: VITAL SIGNS: The patient is very cachectic looking, in no acute distress. HEART: Irregular rate and rhythm. LUNGS: Diminished but clear. ABDOMEN: Soft, positive bowel sounds in all four quadrants with no masses or tenderness noted. No edema noted in the lower extremities. LABORATORY DATA: Hemoglobin is 11.7, it was noted back in 07/2020 she was 11.8; white count is 11.8; platelets are 248. BUN is 47, creatinine 1.1. GFR is 48, total bili 0.7. Alk phos 83, ALT 14, AST is 15. Her albumin is 3.3, total protein 6.9. IMPRESSION: 1. Rectal bleeding. 2. Cirrhosis with history of varices and banding in 2019. 3. Leukocytosis. History of leukemia. 4. Myelofibrosis. 5. Chronic kidney disease. PLAN: 1. Monitor for overt bleeding. 2. Consider EGD and a flex sig, but family is being hesitant and wanting to proceed with this. If not necessary, we will decrease her lactulose to once daily. 3. Further recommendations to be made once Dr. Walker sees the patient later today. Thank you for allowing us to participate in this patient's care. Please do not hesitate to call with any questions regarding this consult. Noah Walker DO JLB/PONCHO/[address] [place] [address] CONSULTATION Name: GOLDY DAVISON Room: [address] IN M.R.#: [id number] Admission: 03/04/21 Attend Phys: Boyd De Paz Discharge: 03/05/21 Date of : 38 Report #: [id number] <ELECTRONICALLY SIGNED> By: Noah Walker DO 03/06/21 0725 1023 1238Noah Walker DO /nt
== END 2021-03-05 21:00 | disposition home or self-care (01) | DRG 393 ==
LOC: M.ERS 12:58 → M.TBA-ER 13:36 → M.2W 13:36
PROVIDERS: Family Medicine; Internal Medicine Gastroenterology; ADMIT Internal Medicine; ATTEND Internal Medicine
DX: K64.8 Other hemorrhoids (principal); N18.6 End stage renal disease; N39.0 Urinary tract infection, site not specified; R65.10 Systemic inflammatory response syndrome (SIRS) of non-infectious origin without acute organ dysfunction; D75.81 Myelofibrosis; I85.00 Esophageal varices without bleeding; K74.60 Unspecified cirrhosis of liver; D72.829 Elevated white blood cell count, unspecified; I50.9 Heart failure, unspecified; I48.91 Unspecified atrial fibrillation; E03.9 Hypothyroidism, unspecified; Z20.822 Contact with and (suspected) exposure to COVID-19; Z85.6 Personal history of leukemia; Z88.0 Allergy status to penicillin; Z88.2 Allergy status to sulfonamides; Z88.5 Allergy status to narcotic agent; Z79.899 Other long term (current) drug therapy

== ENCOUNTER 2021-06-18 12:23 | Emergency (ER) | payer MEDICARE, MEDICAID ==
[~2021-06-18] VITALS: Ht 152.4 cm; Wt 43.1 kg
[2021-06-18 14:37] LABS: HEMATOCRIT 36.5 % (37.0-47.0); HEMOGLOBIN 11.9 gm/dL (12.0-15.0); MCH 27.7 pg (26.0-34.0); MCHC 32.7 g/dL (28.0-37.0); MCV 84.6 fL (80.0-100.0); MPV 8.2 fl. (7.2-11.1); NUCLEATED RBCS 0 /100WBC; PLATELET COUNT* 276 thou/uL (150-400); RBC 4.31 mil/uL (4.20-5.00); RDW-CV 18.5 % (10.5-14.5); WBC 17.3 thou/uL (4.0-11.0)
[2021-06-18 14:52] LABS: CREATININE 1.3 mg/dL (0.6-1.3); POTASSIUM 5.5 mmol/L (3.5-5.1)
[2021-06-18 14:55] LABS: APTT 29.1 Seconds (25.0-31.3)
[2021-06-18 14:56] LABS: ALBUMIN 3.5 g/dL (3.4-5.0); TOTAL BILIRUBIN 0.6 mg/dL (<0.1-1.0); TOTAL PROTEIN 6.8 g/dL (6.4-8.2)
[2021-06-18 15:29] LABS: ABSOLUTE EOSINOPHILS 0.2 thou/uL (0.0-0.7); ABSOLUTE LYMPHOCYTES 1.2 thou/uL (0.8-5.3); ABSOLUTE NEUTROPHILS 14.9 thou/uL (1.6-8.1); METAMYELOCYTES 1 %
[2021-06-18 15:30] LABS: PLATELET ESTIMATE ADEQUATE
[2021-06-18 18:08] VITALS: BP 91/47
== END 2021-06-18 18:09 | disposition home or self-care (01) ==
LOC: M.ERS 12:23
PROVIDERS: Nurse Practitioner Family
DX: K75.4 Autoimmune hepatitis (principal); R22.2 Localized swelling, mass and lump, trunk; K62.5 Hemorrhage of anus and rectum; I50.20 Unspecified systolic (congestive) heart failure; E03.9 Hypothyroidism, unspecified; N18.6 End stage renal disease; Z90.89 Acquired absence of other organs; Z79.899 Other long term (current) drug therapy; Z88.5 Allergy status to narcotic agent; Z88.2 Allergy status to sulfonamides; Z88.0 Allergy status to penicillin

== ENCOUNTER 2021-06-21 07:59 | Inpatient (IN) | payer MEDICARE, MEDICAID ==
[~2021-06-21] VITALS: Ht 165.1 cm; Wt 47.1 kg
[2021-06-21] VITALS (13 sets, daily range): BP systolic 69–106; BP diastolic 35–68
--- NOTE | ~2021-06-21 | CON ---
[address] [address] CONSULTATION Name: LANEYGOLDY C Room: [address] ADM IN M.R.#: [id number] Admission: 06/21/21 Attend Phys: Eran Garrett MD Discharge: Date of : 38 Report #: [id number] THIS REPORT FOR: cc: Tg Tsang Angela Jo RNP Vasudeva, Amita MD ~ DATE OF CONSULTATION: 06/22/2021 NEPHROLOGY CONSULTATION CONSULTING PHYSICIAN: Dr. Chiu. REASON FOR NEPHROLOGY CONSULTATION: Hyperkalemia and acute kidney injury. REASON FOR ADMISSION: GI bleed. HISTORY OF PRESENT ILLNESS: This is an 80-year-old lady with multiple medical comorbidities with possible right lower lobe mass for which family has deferred treatment, she is under the of care of her family and under the care of naturopathic doctors, came in with GI bleed. The patient had been having hematochezia. Apparently, the patient came over the weekend and ER wanted to admit her because of GI bleeding, but family refused. Her daughter takes care of her at home. Her creatinine was 1.3 on 06/18 and yesterday when she came in, her creatinine was 2.4, her potassium was 7.6, her sodium was 126. She was started on IV fluids with which her sodium has come up to 131, potassium is 5.8 this morning, creatinine is still 2.5. She also gets spironolactone, Lasix, and digoxin at home. This is because of liver cirrhosis and AFib respectively. She does follow with Dr. Bates as outpatient cardiology. She also takes midodrine at home for hypotension. Her blood pressure was as low as 60s yesterday. It is currently better, 80 systolic with Levophed. The patient is drowsy, but she is easily arousable and she is oriented x 3. She does have evidence of liver lesion as well, which could be metastasis or primary malignancy. ALLERGIES: PENICILLIN, SULFA, AND CODEINE. REVIEW OF SYSTEMS: As mentioned in history of present illness, she is very weak and she is unable to provide detailed review of systems. HOME MEDICATIONS: Include spironolactone 50 mg a day, lactulose 20 mg b.i.d., midodrine, levothyroxine, furosemide and digoxin 0.125 mg daily. PAST MEDICAL AND SURGICAL HISTORY: Includes appendicitis; tonsillectomy; leukemia; enlarged spleen; CHF, ejection fraction 35%; ESLD; autoimmune hepatitis; prolapsed uterus and bladder; hypothyroidism; possible right lower lobe mass, possible malignancy; two hernias; small mass in the abdominal cavity; [place] [address] CONSULTATION Name: LANEYGOLDY Ethan Room: [address] IN ..#: [id number] Admission: 06/21/21 Attend Phys: Eran Garrett MD Discharge: Date of : 38 Report #: [id number] myelofibrosis and chronic pancytopenia; GI bleeds, variceal and cholelithiasis. FAMILY HISTORY: Noncontributory at 80 years of age. SOCIAL HISTORY: Lives at home. Daughter takes care of her, under the care of a naturopathic doctors. Does not take any recreational drugs. Does not use tobacco, does not use alcohol. PHYSICAL EXAMINATION: VITAL SIGNS: Blood pressure 86/47, temperature is afebrile, pulse rate was 72, respiratory rate was 17, temperature was 36.6, pulse ox was 96%. She was on room air. GENERAL: She is drowsy, but she is arousable. She is oriented x 3. HEAD AND EYES: Atraumatic and normocephalic. Conjunctivae are normal. EARS, NOSE AND THROAT: Normal ears and nose. Mucous membranes are dry. NECK: No JVD. CHEST: Bilaterally diminished breath sounds. No crackles or wheezing. CARDIOVASCULAR: S1, S2 normal. No murmur. ABDOMEN: Soft, nondistended, nontender. LOWER EXTREMITIES: There is no lower extremity edema. NEUROLOGICAL FUNCTION: She is drowsy. PSYCHIATRIC: Unable to assess. LABORATORY DATA: WBC is 18.0, hemoglobin is 8.0, platelet count is 283. Sodium is 131, potassium is 5.8, creatinine is 2.5, BUN is 63, CO2 is 21. Other labs were reviewed. IMAGING: Chest x-ray was reviewed. ASSESSMENT: 1. Acute kidney injury in the setting of a gastrointestinal bleed, severe hypotension, volume depletion, use of spironolactone as well as Lasix at home. She has a creatinine of 2.5 today, it was 2.4 on admission. Creatinine was 1.3 on 06/18 and back in February was 1.1. UA has not been checked, but apparently, the patient has been making urine. Renal imaging not available, not done. 2. Acute lower gastrointestinal bleed. GI is following. She is on octreotide as well as Protonix drip. Hemoglobin 8.0, hemoglobin was in the range of 11 previously. 3. Liver cirrhosis. She is on spironolactone and Lasix at home. 4. Atrial fibrillation. She follows with Cardiology. She is on digoxin at home. 5. Chronic hypotension. She is on midodrine at home. 6. Anion gap metabolic acidosis in the setting of acute kidney injury. 7. Liver lesion, [place] [address] CONSULTATION Name: GOLDY DAVISON Ethan Room: [address] ADM IN M.R.#: [id number] Admission: 06/21/21 Attend Phys: Eran Garrett MD Discharge: Date of : 38 Report #: [id number] 8. Possible right lower lobe mass, which is possible malignancy. The family has refused treatment or evaluation of that. The patient takes a lot of naturopathic medicines. PLAN: 1. From renal standpoint, creatinine is stable, apparently she is making urine and I am not sure how much because it is not being recorded. 2. Sodium and potassium have improved with IV fluids. She is on bicarbonate drip right now, which can be continued. 3. She is not a candidate of dialysis given her multiple comorbidities, possible malignancy, severe protein-calorie malnutrition, liver cirrhosis. This was explained to the patient's daughter and she completely understands that. 4. No need for renal imaging right now because it is not going to price changer, UA can be done if possible. I's and O's can be monitored. 5. I would advise against aggressive measures and I would recommend comfort measures. 6. There is nothing else to offer from a Nephrology standpoint and we will be signing off now and I discussed with patient's daughter, the patient's nurse as well as hospitalist, Dr. Chiu and I spent 35 minutes in critical care. This time was spent in chart review, placing orders and care coordination. By: 0831 [id number] Mathis MD /nt
[2021-06-21 10:38] LABS: HEMATOCRIT 34.1 % (37.0-47.0); HEMOGLOBIN 10.6 gm/dL (12.0-15.0); MCH 27.2 pg (26.0-34.0); MCHC 31.1 g/dL (28.0-37.0); MCV 87.6 fL (80.0-100.0); MPV 8.2 fl. (7.2-11.1); NUCLEATED RBCS 0 /100WBC; PLATELET COUNT* 304 thou/uL (150-400); RBC 3.89 mil/uL (4.20-5.00); RDW-CV 18.4 % (10.5-14.5); WBC 26.9 thou/uL (4.0-11.0)
[2021-06-21 11:02] LABS: CALCIUM 9.1 mg/dL (8.5-10.1)
[2021-06-21 11:06] LABS: ALBUMIN 3.4 g/dL (3.4-5.0); CREATININE 2.4 mg/dL (0.6-1.3); TOTAL BILIRUBIN 0.6 mg/dL (<0.1-1.0); TOTAL PROTEIN 6.5 g/dL (6.4-8.2)
[2021-06-21 11:08] LABS: POTASSIUM 7.6 mmol/L (3.5-5.1)
--- NOTE | 2021-06-21 11:23 | EKG ---
[place] [address] ELECTROCARDIOGRAM REPORT Name: LANEYGOLDY HASTINGS Room: [place] [address] ADM IN .R.#: [id number] Admission: 06/21/21 Attend Phys: Eran Garrett, Discharge: Date of : 38 Date of Service: 06/21/21 1018 Report #: [id number] THIS REPORT FOR: //name// [facility] ED Test Date: 2021-06-21 Test Time: 10:18:29 Pat Name: GOLDY DAVISON Department: Room: [facility] Gender: F Centrifugal Station Operator: CD : 1940 Requested By: Chris Ricks Order Number: [id number] MD: Titus Bates Measurements Intervals [place] Rate: 83 P: [place]: QRS: 54 QRSD: 171 T: 107 QT: 397 QTc: 467 Interpretive Statements Sinus rhythm PAC's Nonspecific intraventricular conduction delay Borderline repolarization abnormality Electronically Signed On 06-21-2021 11:23:13 CDT by Titus Bates [email or web address] <ELECTRONICALLY SIGNED> By: Titus Bates MD, FAC 06/21/21 1123 1018 1018 Titus Bates MD, [facility] /EPI
[2021-06-21 12:08] LABS: ABSOLUTE BASOPHILS 0.3 thou/uL (0.0-0.2); ABSOLUTE LYMPHOCYTES 0.8 thou/uL (0.8-5.3); ABSOLUTE MONOCYTES 1.6 thou/uL (0.0-1.2); ABSOLUTE NEUTROPHILS 24.2 thou/uL (1.6-8.1)
[2021-06-21 12:09] LABS: PLATELET ESTIMATE ADEQUATE
[2021-06-21 12:10] LABS: HYPOCHROMASIA 1+; OVALOCYTES 2+
[2021-06-21 18:24] LABS: CALCIUM 8.4 mg/dL (8.5-10.1); CREATININE 2.4 mg/dL (0.6-1.3); POTASSIUM 6.9 mmol/L (3.5-5.1)
[2021-06-21 21:46] LABS: MCH 27.4 pg (26.0-34.0); MCHC 31.8 g/dL (28.0-37.0); MCV 86.2 fL (80.0-100.0); RBC 3.14 mil/uL (4.20-5.00); RDW-CV 18.5 % (10.5-14.5); WBC 19.2 thou/uL (4.0-11.0)
[2021-06-21 21:48] LABS: HEMOGLOBIN 8.6 gm/dL (12.0-15.0)
[2021-06-22] VITALS (61 sets, daily range): BP systolic 68–138; BP diastolic 37–63
[2021-06-22 04:41] LABS: ABSOLUTE BASOPHILS 0.2 thou/uL (0.0-0.2); ABSOLUTE EOSINOPHILS 0.3 thou/uL (0.0-0.7); ABSOLUTE LYMPHOCYTES 0.7 thou/uL (0.8-5.3); ABSOLUTE MONOCYTES 0.9 thou/uL (0.0-1.2); EOSINOPHILS 1.4 %; HEMATOCRIT 24.3 % (37.0-47.0); MCHC 32.8 g/dL (28.0-37.0); MCV 85.3 fL (80.0-100.0); MONOCYTES 4.9 %; MPV 9.2 fl. (7.2-11.1); NUCLEATED RBCS 0 /100WBC; PLATELET COUNT* 283 thou/uL (150-400); POLYS 88.7 %; RBC 2.85 mil/uL (4.20-5.00); RDW-CV 18.6 % (10.5-14.5)
[2021-06-22 04:54] LABS: INR 1.1; PROTIME 11.4 Seconds (9.20-11.50)
[2021-06-22 05:06] LABS: ALBUMIN 2.6 g/dL (3.4-5.0); CALCIUM 8.1 mg/dL (8.5-10.1); CREATININE 2.5 mg/dL (0.6-1.3); TOTAL BILIRUBIN 0.5 mg/dL (<0.1-1.0); TOTAL PROTEIN 5.2 g/dL (6.4-8.2)
[2021-06-22 05:07] LABS: POTASSIUM 5.8 mmol/L (3.5-5.1)
[2021-06-23] VITALS (22 sets, daily range): BP systolic 70–99; BP diastolic 40–54
[2021-06-23 05:05] LABS: HEMATOCRIT 23.4 % (37.0-47.0); HEMOGLOBIN 7.9 gm/dL (12.0-15.0); MCH 28.6 pg (26.0-34.0); MCHC 33.9 g/dL (28.0-37.0); MCV 84.5 fL (80.0-100.0); MPV 9.1 fl. (7.2-11.1); RBC 2.77 mil/uL (4.20-5.00); WBC 13.1 thou/uL (4.0-11.0)
[2021-06-23 05:15] LABS: CALCIUM 7.3 mg/dL (8.5-10.1); CREATININE 2.4 mg/dL (0.6-1.3); POTASSIUM 5.3 mmol/L (3.5-5.1)
--- NOTE | 2021-06-23 23:00 | CON ---
[address] [address] CONSULTATION Name: GOLDY DAVISON Room: [address] IN M.R.#: [id number] Admission: 06/21/21 Attend Phys: Eran Garrett MD Discharge: 06/23/21 Date of : 38 Report #: [id number] THIS REPORT FOR: cc: Tg Tsang Angela Jo RNP Vardakis, Gregory DO ~ cc: Eran Garrett MD, ANN Ken DATE OF CONSULTATION: 06/21/2021 REFERRING PHYSICIAN: Eran Garrett MD. REASON FOR CONSULTATION: 1. Overt hematochezia, uncertain etiology. 2. Hypotension, which is multifactorial (GI blood loss, dilated cardiomyopathy and renal failure). 3. Decompensated liver disease with history of variceal bleeding. 4. Acute renal failure superimposed on chronic kidney disease with significant hyperkalemia. 5. 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 6. Large right pleural based mass (workup deferred by patient and family). 7. Protein calorie malnutrition. 8. Medication noncompliance. RECOMMENDATIONS: 1. Began the patient on octreotide in case this is an upper GI bleed related to portal hypertension, specifically esophageal varices. 2. We will also continue with Protonix drip at this time. 3. We would attempt to correct the patient, we will continue to attempt to correct the patient's hyperkalemia and help improve her acute renal failure. 4. EGD would only be done if the patient becomes hemodynamically stable and her hyperkalemia can be contracted. This was also be continued upon the patient's family, the patient and her family agreeing to the same. 5. The patient and family to decide how far they wished for us to proceed with the patient's care. In the past, they have always refused all intervention and there is only so much we can do at this time. 6. Her overall prognosis is very guarded at this time. I have discussed these plans with the patient as well as her daughter at the bedside and they are agreeable to same. HISTORY OF PRESENT ILLNESS: The patient is an 80-year-old white female well known to me from previous hospitalizations in the past, dating back to 2019 where she has had issues with decompensated liver disease from nonalcoholic fatty liver and variceal bleeding. She was last seen by us back in 02/2021 [place] [address] CONSULTATION Name: GOLDY DAVISON Room: [address]#: [id number] Admission: 06/21/21 Attend Phys: Eran Garrett MD Discharge: 06/23/21 Date of : 38 Report #: [id number] which time she was also having issues with bright red bleeding at that time. She presented to the Emergency Room at this time with similar type complaints of overt hematochezia with associated weakness. Her story is similar to the hospital stay that she had back in February, at which time they refused all intervention. The patient is sleepy at this time and basically lies around all day long typically. She can be awoken, arouses very easily. She and her family have chosen enteropathic medication to help with her long-term issues. She is currently in the ICU because of hypotension and acute renal failure with hyperkalemia. ALLERGIES: PENICILLIN, SULFA, AND CODEINE. MEDICATIONS: Midodrine 15 mg up to 3 times daily, spironolactone 50 mg once daily, Lasix 20 mg daily, lactulose 20 grams up to twice daily, and levothyroxine, but it is unclear whether or not she continues all these medications. PAST MEDICAL HISTORY: Remarkable for decompensated liver disease secondary to cirrhosis with history of variceal bleeding. She also has a problem with chronic kidney disease, hypothyroidism. She has some type of myelofibrosis or myeloproliferative disorder with chronic pancytopenia. She does have history of cholelithiasis, which is asymptomatic. PAST SURGICAL HISTORY: She had previous remote hysterectomy, appendectomy, tonsillectomy. SOCIAL HISTORY: The patient lives with her and daughter. PHYSICAL EXAMINATION: GENERAL: Ill-appearing 80-year-old white female who is awake, but lethargic. CARDIOPULMONARY: Revealed a regular rate and rhythm. LUNGS: Clear with diminished breath sounds on the right base. ABDOMEN: Soft, not tender. No rebound or guarding noted. LABORATORY DATA: From admission revealed white count 26.9, hemoglobin 10.6 and platelet count 304,000. Her sodium 126, potassium 7.6, chloride 97, bicarb 15, BUN 73, creatinine 2.4 for GFR of only 19. Total bilirubin 0.6, alkaline phosphatase 94, AST 17, ALT 13, albumin 3.4. By comparison, her BUN and creatinine were 44 and 1.1 back in 02/2021. Liver function tests were essentially unchanged. CT scan of the abdomen and pelvis with angiogram revealed a bilobed 16 cm mass in the right lower chest similar to the previous one. She has splenomegaly and dilated splenic vein and portal vein similar. She also has a 2 cm cystic lesion Mono'[address] [address] CONSULTATION Name: GOLDY DAVISON Room: [address] IN M.R.#: [id number] Admission: 06/21/21 Attend Phys: Eran Garrett MD Discharge: 06/23/21 Date of : 38 Report #: [id number] in the pancreas, which is similar to the CT findings in 02/2019. She also has a heterogeneous appearing liver. DISCUSSION: At the present time, the patient is in critical condition at this time. It is unclear whether they wanted to proceed with any interventions or not. She is not in any shape to have any type of sedation at this time with her hypotension and hyperkalemia. We will watch her expectantly at this time. <ELECTRONICALLY SIGNED> By: Noah Walker DO 06/23/210 1450 24Noah Walker DO /nt
== END 2021-06-23 14:07 | disposition home or self-care (01) | DRG 377 ==
LOC: M.ERS 07:59 → M.TBA-ER 10:48 → M.ICU 10:48 → M.TBA-ER 11:34 → M.ICU 15:09
PROVIDERS: Emergency Medicine Emergency Medical Services; Family Medicine; Internal Medicine Gastroenterology; ADMIT Internal Medicine; ATTEND Internal Medicine
PROC: 02HV33Z Insertion of Infusion Device into Superior Vena Cava, Percutaneous Approach (ICD-10-PCS; principal; 2021-06-21)
DX: K92.2 Gastrointestinal hemorrhage, unspecified (principal); E43 Unspecified severe protein-calorie malnutrition; N18.6 End stage renal disease; I50.21 Acute systolic (congestive) heart failure; E87.1 Hypo-osmolality and hyponatremia; N17.9 Acute kidney failure, unspecified; E87.2 Acidosis; C95.10 Chronic leukemia of unspecified cell type not having achieved remission; C92.10 Chronic myeloid leukemia, BCR/ABL-positive, not having achieved remission; I42.0 Dilated cardiomyopathy; K76.6 Portal hypertension; Z68.1 Body mass index [BMI] 19.9 or less, adult; E03.9 Hypothyroidism, unspecified; K74.60 Unspecified cirrhosis of liver; I95.89 Other hypotension; I48.91 Unspecified atrial fibrillation; E87.5 Hyperkalemia; R16.1 Splenomegaly, not elsewhere classified; D49.1 Neoplasm of unspecified behavior of respiratory system; D49.0 Neoplasm of unspecified behavior of digestive system; Z88.6 Allergy status to analgesic agent; Z88.0 Allergy status to penicillin; Z88.2 Allergy status to sulfonamides; Z91.14 Patient's other noncompliance with medication regimen; Z90.710 Acquired absence of both cervix and uterus